=== PATIENT | female | born 1960 | race Caucasian/White ===

== ENCOUNTER → 2023-07-07 11:31 | Outpatient (REF) | payer OTHER, SELFPAY | LOC: RAD 11:31 | PROVIDERS: ATTENDING PHYSICIAN Nurse Practitioner Adult Health | DX: C50.111 Malignant neoplasm of central portion of right female breast (principal); C77.0 Secondary and unspecified malignant neoplasm of lymph nodes of head, face and neck; C79.51 Secondary malignant neoplasm of bone; K59.00 Constipation, unspecified | CPT/HCPCS: 73502 ==

== ENCOUNTER → 2023-07-09 16:21 | Outpatient (REF) | payer OTHER, SELFPAY ==
[2023-07-09 14:20] LABS: % Basophils 0.4 % (0-2); % Eosinophils 0.3 % (0-6); % Immature Granulocytes 0.7 % (0-0.5); % Lymphocytes 5.1 % (20.5-51.1); % Monocytes 8.2 % (1.7-9.3); % Neutrophils 85.3 % (42.2-75.2); Absolute Immature Granulocytes 0.1 10^3/uL (0-0.05); Absolute Lymphocytes 0.4 10^3/uL (1.2-3.4); Absolute Monocytes 0.6 10^3/uL (0.1-0.6); Absolute Neutrophils 6.3 10^3/uL (1.4-6.5); Hematocrit 26.8 % (37.0-47.0); Hemoglobin 8.4 g/dL (12.0-16.0); Mean Corp Hgb Conc. 31.3 g/dL (33.0-37.0); Mean Corpuscular Hgb 28.1 pg (27.0-31.0); Mean Corpuscular Volume 89.6 fL (81.0-99.0); Mean Platelet Volume 10.9 fL (7.4-10.4); Platelet Count 135 10^3/uL (130-400); Red Blood Cell Count 2.99 10^6/uL (4.20-5.40); Red Cell Dist. Width 19.6 % (11.5-14.5); White Blood Cell Count 7.4 10^3/uL (4.8-10.8)
== END ==
LOC: OIDL 16:21
PROVIDERS: ATTENDING PHYSICIAN Internal Medicine Hematology & Oncology
DX: C50.111 Malignant neoplasm of central portion of right female breast (principal)
CPT/HCPCS: 85025

== ENCOUNTER 2023-07-09 22:42 | Emergency (ER) | payer OTHER, SELFPAY ==
[2023-07-09 22:45] VITALS: BP 115/72
--- NOTE | 2023-07-09 23:24 | ED.GENMED ---
History of Present Illness
General
Chief Complaint: Cancer Problem
Source: patient
Time Seen by Provider: 07/09/23 23:16
Travel History
Have you had any contact with someone who has COVID-19?: No
Do you have any symptoms of coronavirus? Fever > 100 degrees, chills, cough, shortness of breath, sore throat, loss of taste or smell, muscle aches, or headache?: No
History of Present Illness
History of Present Illness:
63-year-old female presents to the emergency room complaining of pain in her left hip. Patient has known metastatic breast cancer both to her left hip and the other bony structures. However it is the left hip that gives her discomfort. Patient
states the pain is so severe that she really cannot sit still for long period of time. Patient has had recent imaging that confirms metastatic disease there but no fracture. Patient has no other complaints. She did speak to her oncology office
today and they were going to call in a prescription for tramadol however that apparently did not happen. Patient has been taking Tylenol without any improvement.
Past History
Past History
ED Past Medical History: Psychiatric (Anxiety and depression) and Other (Bone fractures)
ED Past Surgical History: None
Social History
Tobacco: Former smoker (Quit summer 2017)
Personal: Single
Living: alone
Employment: Not employed
Family History
Family History: Other
Phy Exam
Physical Exam
Physical Exam:
General: Awake, Alert, Oriented X3. No acute distress.
Vitals: unremarkable
Head: Atraumatic
Eyes: Pupils equal, EOMI
Throat: Airway intact, no exudates
Neck: Trachea midline
Neuro: Nonfocal
Skin: Warm, dry, no rash
Extremities: pulses equal b/l, no edema
Course
Orders/Labs/Results
Orders:
Orders
07/09/23 23:23
Oxycodone [Roxicodone] 5 mg PO NOW STA
Vital Signs
Initial and Last Documented VS:
Initial Vital Signs
Temp Pulse Resp BP Pulse Ox
98.2 F 90 18 115/72 98
07/09/23 22:45 07/09/23 22:45 07/09/23 22:45 07/09/23 22:45 07/09/23 22:45
Last Documented Vital Signs
Temp Pulse Resp BP Pulse Ox
98.2 F 90 18 115/72 98
07/09/23 22:45 07/09/23 22:45 07/09/23 22:45 07/09/23 22:45 07/09/23 22:45
MDM/Problems Addressed
Differential Diagnosis Includes:
Bone pain from metastases
MDM/Problems Addressed:
I do not favor tramadol given its high side effect profile and the fact it is not effective in all patients given it is a pro drug. Therefore we will prescribe oxycodone for pain. Dose given now and a prescription sent for 12 tablets until she can
follow-up with her oncologist.
*Pulse Oximetry
Patient hypoxic: no
*Critical Care Note
Total Time (30-74mins, 75-104mins- exclusive of procedures): Not Applicable
Data Reviewed
Review of Other/Old Records Reveals: Radiology Studies (CT and PET scans that were performed recently)
ED Attending Note
-
Portions of this chart may have been created with voice recognition software.� Occasional wrong word or��sound alike� substitutions may have occurred due to the inherent limitations of voice recognition software.
Discharge Plan
Departure
Patient Disposition: Home (Routine Discharge)
Date of Disposition: 07/09/23
Time of Disposition: 23:24
Patient with high blood pressure during this ER visit?: No
Condition: Good
Discharge Problem:
Pain from bone metastases
Instructions: Bone metastases
Prescriptions:
New
oxycodone 5 mg tablet
5 mg PO Q6H PRN (Reason: Pain) Qty: 12 0RF
No Action
sertraline 100 MG tablet
100 mg PO DAILY
tramadol 50 mg tablet
50 mg PO BID PRN (Reason: moderate pain)
Patient Comments:
09/30/2022: last filled 09/22/22, 60 tabs for 30 days from [facility]
diphenhydramine HCl 25 mg Capsule
50 mg PO HS PRN (Reason: sleep)
alprazolam [Xanax] 0.25 mg Tablet
0.75 mg PO HS PRN (Reason: anxiety)
ketorolac 10 mg tablet
10 mg PO Q6H PRN (Reason: pain) 3 Days Qty: 12 0RF
Rx Instructions:
as needed for moderate to severe pain
methylprednisolone [Medrol (Kirby)] 4 mg tablets,dose pack
See Rx Instructions .ROUTE .COMPLEX Qty: 21 0RF
Rx Instructions:
orally per package directions
Interventions
Interventions:
*Risk Screen - Suicide Last Done: 07/09/23 22:45
[2023-07-09] MEDS: ROXICODONE 5 MG PO (23:35)
== END 2023-07-09 23:38 | disposition home or self-care (01) ==
LOC: EMR 22:42
PROVIDERS: EMERGENCY PHYSICIAN Emergency Medicine
DX: G89.3 Neoplasm related pain (acute) (chronic) (principal); C79.51 Secondary malignant neoplasm of bone; F41.9 Anxiety disorder, unspecified; F32.A Depression, unspecified; Z87.891 Personal history of nicotine dependence
CPT/HCPCS: 99282

== ENCOUNTER → 2023-08-05 11:02 | Outpatient (REF) | payer OTHER, SELFPAY ==
[2023-08-05 09:53] LABS: % Basophils 0.6 % (0-2); % Eosinophils 1.6 % (0-6); % Immature Granulocytes 1.3 % (0-0.5); % Lymphocytes 7.5 % (20.5-51.1); Absolute Eosinophils 0.1 10^3/uL (0-0.7); Absolute Immature Granulocytes 0.1 10^3/uL (0-0.05); Absolute Lymphocytes 0.5 10^3/uL (1.2-3.4); Absolute Monocytes 0.5 10^3/uL (0.1-0.6); Absolute Neutrophils 5.1 10^3/uL (1.4-6.5); Hematocrit 26.2 % (37.0-47.0); Hemoglobin 8.2 g/dL (12.0-16.0); Mean Corp Hgb Conc. 31.3 g/dL (33.0-37.0); Mean Corpuscular Volume 89.4 fL (81.0-99.0); Mean Platelet Volume 10.4 fL (7.4-10.4); Platelet Count 85 10^3/uL (130-400); Red Blood Cell Count 2.93 10^6/uL (4.20-5.40); Red Cell Dist. Width 18.8 % (11.5-14.5); White Blood Cell Count 6.3 10^3/uL (4.8-10.8)
[2023-08-05 10:36] LABS: ALT (SGPT) 10 U/L (0-35); AST (SGOT) 46 U/L (14-36); Alkaline Phosphatase 123 U/L (38-126); Blood Urea Nitrogen 10 mg/dl (7-17); Carbon Dioxide 22 mmol/L (22-30); Chloride 101 mmol/L (98-107); Glucose 108 mg/dl (70-99); Potassium 4.4 mmol/L (3.5-5.1); Sodium 132 mmol/L (135-145); Total Bilirubin 0.6 mg/dl (0.2-1.3); Total Protein 7.4 g/dl (6.3-8.2); eGFR > 60.00
[2023-08-07 02:57] LABS: CA 27-29 2345.4 U/mL (<=39.0)
== END ==
LOC: OIDL 11:02
PROVIDERS: ATTENDING PHYSICIAN Nurse Practitioner Adult Health
DX: C50.111 Malignant neoplasm of central portion of right female breast (principal)
CPT/HCPCS: 80053; 85025; 86300

== ENCOUNTER 2023-08-19 10:44 | Emergency (ER) | payer OTHER, SELFPAY ==
[2023-08-19] MEDS: TORADOL 30 MG IM (12:29)
--- NOTE | 2023-08-19 12:47 | ED.MUSCINJ ---
HPI-Injury
General
Chief Complaint: Musculo-Skeletal Complaint
Source: patient
Exam Limitations: none
Time Seen by Provider: 08/19/23 11:58
Travel History
Have you had any contact with someone who has COVID-19?: No
Do you have any symptoms of coronavirus? Fever > 100 degrees, chills, cough, shortness of breath, sore throat, loss of taste or smell, muscle aches, or headache?: No
History of Present Illness-Injury
Initial Injury comments:
63-year-old female with history of metastatic breast cancer presents complaining of increased pain to the left hip and pelvis with difficulty moving normal bowels. This is been ongoing but symptoms are much worse. She had her last radiation
treatment to her pelvis about 2 weeks ago. The pain now radiates down her thigh. No fever. No other
Past History
Past History
ED Past Medical History: Psychiatric (Anxiety and depression) and Other (Bone fractures)
ED Past Surgical History: None
Social History
Tobacco: Former smoker (Quit summer 2017)
Personal: Single
Living: alone
Employment: Not employed
Family History
Family History: Other
Phy Exam
Physical Exam
Physical Exam:
General: Well-appearing female no acute respiratory distress
HEENT: Normocephalic atraumatic
Heart: Regular rate and rhythm no murmurs
Lungs: Clear to auscultation bilaterally no wheezing
Abdomen: Soft tender to the left lower quadrant no guarding or rebound
Musculoskeletal exam: Left leg without deformity. Good range of motion of the hip. Slightly tender to the lateral and anterior hip and left thigh
Vascular: 2+ dorsalis pedis pulse bilateral feet
Injury Course
Orders/Labs/Results
Orders:
Orders
08/19/23 12:13
CT Abd/pel Without Iv Or Oral Urgent
Comment:
Reason For Exam: lower abdominal pain, anaphylaxis to dye
Ketorolac [Toradol] 30 mg IM NOW STA
CR Femur - Left Min 2 Vw Urgent
Comment:
Reason For Exam: pain
08/19/23 13:24
Ondansetron Orally Disint [Zofran Odt (Orally Disintegrating)] 4 mg PO NOW STA
MDM/Problems Addressed
Differential Diagnosis Includes:
Increased pelvic pain and difficulty moving bowels following radiation. History of metastatic breast cancer with known metastasis to the pelvis will check CT of the abdomen given tenderness on exam and pelvis to evaluate for any potential occult
fracture. X-ray left femur pending.
*Critical Care Note
Total Time (30-74mins, 75-104mins- exclusive of procedures): Not Applicable
Update Note
Update Note:
CT scan demonstrates new lobular soft tissue mass in the left adnexa and pelvis suspicious for malignant disease. There are known osseous lesions in the pelvis and spine. X-rays of left femur are negative. A report of the CAT scan was printed out
for her review. Recommended she follow-up with her oncology team. Patient is ambulatory here. She walks briskly with pain.
ED Attending Note
-
Portions of this chart may have been created with voice recognition software.� Occasional wrong word or��sound alike� substitutions may have occurred due to the inherent limitations of voice recognition software.
Discharge Plan
Departure
Patient Disposition: Home (Routine Discharge)
Date of Disposition: 08/19/23
Time of Disposition: 14:09
Patient with high blood pressure during this ER visit?: No
Discharge Problem:
Sacral mass
Instructions: Muscle and Bone Pain (DC)
Prescriptions:
No Action
sertraline 100 MG tablet
100 mg PO DAILY
tramadol 50 mg tablet
50 mg PO BID PRN (Reason: moderate pain)
Patient Comments:
09/30/2022: last filled 09/22/22, 60 tabs for 30 days from [facility]
diphenhydramine HCl 25 mg Capsule
50 mg PO HS PRN (Reason: sleep)
alprazolam [Xanax] 0.25 mg Tablet
0.75 mg PO HS PRN (Reason: anxiety)
ketorolac 10 mg tablet
10 mg PO Q6H PRN (Reason: pain) 3 Days Qty: 12 0RF
Rx Instructions:
as needed for moderate to severe pain
methylprednisolone [Medrol (Kirby)] 4 mg tablets,dose pack
See Rx Instructions .ROUTE .COMPLEX Qty: 21 0RF
Rx Instructions:
orally per package directions
oxycodone 5 mg tablet
5 mg PO Q6H PRN (Reason: Pain) Qty: 12 0RF
Referrals:
UNKNOWN - PT DOES,NOT KNOW [Family Provider] -
Activity Restrictions/Additional Instructions:
Continue current pain medicine regimen. Please follow-up with your oncology team. Return if worse otherwise
Interventions
Interventions:
*Risk Screen - Suicide Last Done: 08/19/23 10:56
*General Assessment Last Done: 08/19/23 10:56
*Neglect/Abuse Screening Last Done: 08/19/23 10:56
*ED COVID-19 Vaccine History Last Done: 08/19/23 12:00
ED-Musculoskeletal Assessment Last Done: 08/19/23 12:00
[2023-08-19] MEDS: ZOFRAN ODT (ORALLY DISINTEGRATING) 4 MG PO (13:28)
[2023-08-19 13:29] VITALS: BP 130/84
[2023-08-19 14:11] VITALS: BP 130/84
== END 2023-08-19 14:25 | disposition home or self-care (01) ==
LOC: EMR 10:44
PROVIDERS: EMERGENCY PHYSICIAN Emergency Medicine
DX: M99.84 Other biomechanical lesions of sacral region (principal); C50.919 Malignant neoplasm of unspecified site of unspecified female breast; Z87.891 Personal history of nicotine dependence; Z85.3 Personal history of malignant neoplasm of breast
CPT/HCPCS: 99284; 96372; 73552; 74176

== ENCOUNTER 2023-08-26 16:43 | Inpatient (IN) | payer OTHER, SELFPAY ==
[2023-08-26] VITALS (13 sets, daily range): BP systolic 94–145; BP diastolic 61–80; PULSE 84–104; BMI 20.8; BMI 21.0
[2023-08-26] MEDS: TYLENOL 1000 MG PO (12:56)
[2023-08-26 13:20] LABS: Urine Albumin Trace (Neg - Trace); Urine Bilirubin 1+ (Negative); Urine Character Clear (Clear); Urine Color Yellow; Urine Glucose Negative (Negative); Urine Ketone Trace (Negative); Urine Leukocyte Trace (Negative); Urine Nitrite Negative (Negative); Urine Occult Blood Negative (Negative); Urine Urobilinogen Negative (Neg - 1+)
[2023-08-26 13:39] LABS: Urine Urothelial Cell 0-2 /LPF (FEW)
[2023-08-26 13:41] LABS: Urine Mucus Few
[2023-08-26] MEDS: REGLAN 10 MG IV (13:43)
[2023-08-26] MEDS: NSS 1000 IV (13:44)
[2023-08-26 13:45] LABS: Urine Red Blood Cell None Seen /HPF (0-2)
[2023-08-26 13:59] LABS: % Basophils 0.4 % (0-2); % Eosinophils 0.4 % (0-6); % Immature Granulocytes 1.5 % (0-0.5); % Lymphocytes 6.6 % (20.5-51.1); % Monocytes 7.4 % (1.7-9.3); % Neutrophils 83.7 % (42.2-75.2); Absolute Immature Granulocytes 0.1 10^3/uL (0-0.05); Absolute Lymphocytes 0.6 10^3/uL (1.2-3.4); Absolute Monocytes 0.7 10^3/uL (0.1-0.6); Absolute Neutrophils 7.8 10^3/uL (1.4-6.5); Mean Corp Hgb Conc. 30.1 g/dL (33.0-37.0); Mean Corpuscular Hgb 27.8 pg (27.0-31.0); Mean Corpuscular Volume 92.4 fL (81.0-99.0); Mean Platelet Volume 11.5 fL (7.4-10.4); Nucleated Red Blood Cells % 0.6 %; Platelet Count 121 10^3/uL (130-400); Red Blood Cell Count 1.58 10^6/uL (4.20-5.40); Red Cell Dist. Width 20.3 % (11.5-14.5); White Blood Cell Count 9.3 10^3/uL (4.8-10.8)
[2023-08-26 14:13] LABS: ALT (SGPT) 12 U/L (0-35); AST (SGOT) 60 U/L (14-36); Albumin 3.4 g/dl (3.5-5.0); Alkaline Phosphatase 126 U/L (38-126); Blood Urea Nitrogen 14 mg/dl (7-17); Calcium 8.6 mg/dl (8.4-10.2); Carbon Dioxide 21 mmol/L (22-30); Chloride 101 mmol/L (98-107); Estimated Creatinine Clearance 81 ml/min; Glucose 102 mg/dl (70-99); Lipase 52 U/L (23-300); Potassium 4.7 mmol/L (3.5-5.1); Sodium 130 mmol/L (135-145); Total Bilirubin 0.6 mg/dl (0.2-1.3); Total Protein 6.6 g/dl (6.3-8.2); eGFR > 60.00
[2023-08-26 14:14] LABS: Hemoglobin 4.4 g/dL (12.0-16.0)
[2023-08-26 14:15] LABS: Hematocrit 14.6 % (37.0-47.0)
[2023-08-26] MEDS: DILAUDID 0.5 MG IV ×2 (14:36→22:38)
--- NOTE | 2023-08-26 15:03 | ED.GENMED ---
History of Present Illness
General
Chief Complaint: Abdominal Pain
Source: patient and spouse
Exam Limitations: none
Time Seen by Provider: 08/26/23 12:22
Nursing documentation reviewed up to this point in time: agreed with
Travel History
Have you had any contact with someone who has COVID-19?: No
Do you have any symptoms of coronavirus? Fever > 100 degrees, chills, cough, shortness of breath, sore throat, loss of taste or smell, muscle aches, or headache?: No
History of Present Illness
History of Present Illness:
63-year-old female with past medical history of metastatic breast cancer and additional finding of potential cancerous lesion of the adnexa that was found 1 week ago with noncontrast CT scan presenting to the emergency department initially with
concerns of ongoing lower abdominal pain that is similar over the past few weeks. Denies any significant changes in bowel or bladder as well as urine. Denies specific fevers chest pain shortness of breath.
Past History
Past History
ED Past Medical History: Psychiatric (Anxiety and depression) and Other (Bone fractures)
ED Past Surgical History: None
Social History
Tobacco: Former smoker (Quit summer 2017)
Personal: Single
Living: alone
Employment: Not employed
Family History
Family History: Other
Review of Systems
Review of Systems
Allergies reviewed?: Yes
All Other Systems: ROS reviewed and negative except as documented in HPI and ROS
Phy Exam
Physical Exam
Physical Exam:
GENERAL: Alert , in no apparent distress
EYE: pupils equal and reactive
NECK: Supple, no significant adenopathy.
ENT: o/p clr, mmm.
CARDIAC: Regular rate and rhythm .
LUNGS: Clear breath sounds bilaterally, no acute respiratory distress, no wheezes/rales/rhonchi
ABDOMEN: Dark brown stool guaiac positive. Otherwise soft and benign.
NEUROLOGICAL: Alert and oriented, no focal neuro deficits
SKIN: Warm and dry, skin intact.
MUSCULOSKELETAL: No edema, well perfused.
PSYCH: Normal and appropriate interaction.
Mild pain to the lower abdomen mainly to the left side
Course
Orders/Labs/Results
Orders:
Orders
08/26/23 12:45
0.9% Sodium Chloride 1000 ml [Nss] 1,000 ml IV BOLUS
Acetaminophen [Tylenol] 1,000 mg PO NOW STA
Metoclopramide [Reglan] 10 mg IV NOW STA
08/26/23 13:11
Urinalysis Reflex To Culture Urgent
Date Specimen was Collected: 08/26/23
Time Specimen was Collected: 13:10
Urine Microscopic Reflex Cult Urgent
08/26/23 13:38
Complete Blood Count/With Diff Urgent
Comprehensive Metabolic Panel Urgent
Lipase Urgent
08/26/23 14:14
* Blood Bank Products Urgent
Blood Bank Products: *Packed RBC Leuko(PRBC's)
Quantity: 2
Transfuse Today: Yes
Reason: Anemia
HYDROmorphone [Dilaudid] 0.5 mg IV NOW STA
08/26/23 14:26
Type+Screen Urgent
08/26/23 14:40
PT/INR [Prothrombin Time] Urgent
PTT Urgent
08/26/23 14:43
Pantoprazole [Protonix IV] 80 mg IV NOW STA
Abnormal Lab Results
08/26/23 08/26/23
13:11 13:38
RBC 1.58 L 10^6/uL
(4.20-5.40)
Hgb 4.4 L* g/dL
(12.0-16.0)
Hct 14.6 L* %
(37.0-47.0)
MCHC 30.1 L g/dL
(33.0-37.0)
RDW 20.3 H %
(11.5-14.5)
Plt Count 121 L 10^3/uL
(130-400)
MPV 11.5 H fL
(7.4-10.4)
Abs Immat Gran (auto) 0.1 H 10^3/uL
(0-0.05)
Absolute Neuts (auto) 7.8 H 10^3/uL
(1.4-6.5)
Absolute Lymphs (auto) 0.6 L 10^3/uL
(1.2-3.4)
Absolute Monos (auto) 0.7 H 10^3/uL
(0.1-0.6)
Immature Gran % 1.5 H %
(0-0.5)
Neutrophils % 83.7 H %
(42.2-75.2)
Lymphocytes % 6.6 L %
(20.5-51.1)
Sodium 130 L mmol/L
(135-145)
Carbon Dioxide 21 L mmol/L
(22-30)
Creatinine 0.5 L mg/dL
(0.6-1.0)
Glucose 102 H mg/dl
(70-99)
AST 60 H U/L
(14-36)
Albumin 3.4 L g/dl
(3.5-5.0)
Urine Ketones Trace A
(Negative)
Urine Bilirubin 1+ A
(Negative)
Leukocyte Esterase Rfl Trace A
(Negative)
08/26/23 13:38
08/26/23 13:38
Vital Signs
Initial and Last Documented VS:
Initial Vital Signs
Temp Pulse Resp BP Pulse Ox
98.5 F 112 18 94/61 98
08/26/23 11:56 08/26/23 11:56 08/26/23 11:56 08/26/23 11:56 08/26/23 11:56
Last Documented Vital Signs
Temp Pulse Resp BP Pulse Ox
98.5 F 112 18 94/61 98
08/26/23 11:56 08/26/23 11:56 08/26/23 11:56 08/26/23 11:56 08/26/23 11:56
MDM/Problems Addressed
MDM/Problems Addressed:
63-year-old female presenting to the emergency department today with concerns of ongoing abdominal pain. Was given Dilaudid for pain labs showing hemoglobin of 4.4 previously in the eights 1 week ago. Otherwise labs without emergent findings stool
guaiac positive patient ordered 2 units of blood and admitted to the hospital for further evaluation and monitoring. Blood pressure remaining in the low 100s systolic here heart rate around 100 febrile.
*Critical Care Note
Total Time (30-74mins, 75-104mins- exclusive of procedures): Not Applicable
ED Attending Note
-
Portions of this chart may have been created with voice recognition software.� Occasional wrong word or��sound alike� substitutions may have occurred due to the inherent limitations of voice recognition software.
Discharge Plan
Departure
Patient Disposition: Admit
Date of Disposition: 08/26/23
Time of Disposition: 15:09
Admit to: IMU
Admit to doctor: Eleuterio
Presentation/result/management discussed w/ accepting MD/DO: Hospitalist
Patient with high blood pressure during this ER visit?: No
Condition: Fair
Covid-19: Not Applicable
Discharge Problem:
Anemia, GI bleed
Prescriptions:
No Action
sertraline 100 MG tablet
100 mg PO DAILY
acetaminophen [Tylenol] 325 mg Tablet
650 mg PO Q6HPRN PRN (Reason: mild pain)
alprazolam [Xanax] 0.5 mg Tablet
0.5 mg PO BIDPRN PRN (Reason: anxiety)
duloxetine [Cymbalta] 30 mg Capsule,Delayed Release(Dr/Ec)
30 mg PO HS
Referrals:
NONE,* [Family Provider] -
Interventions
Interventions:
*Risk Screen - Suicide Last Done: 08/26/23 11:56
*General Assessment Last Done: 08/26/23 11:56
*Neglect/Abuse Screening Last Done: 08/26/23 11:56
*ED COVID-19 Vaccine History Last Done: 08/26/23 11:56
[2023-08-26 15:07] LABS: INR 1.16; PT 14.8 Sec (11.4-14.6)
[2023-08-26 15:08] LABS: APTT 41.3 Sec (23.4-35.0)
--- NOTE | 2023-08-26 15:32 | HPS.HSE ---
Family Physician
-
Family Physician: * NONE
Chief Complaint
-
abdominal pain
History of Present Illness
Ms. Maria Luisa Carmona is a 63 yo woman with hx anxiety/depression, metastatic breast cancer, recent finding of potential cancerous lesion of adnexa (found 1 week ago at ER visit) presents to the ER with left flank pain and found to have a Hg 4.4.
Patient reports increased fatigue, weakness and shortness of breath with exertion over past 4-5 days. No fevers/chills. No chest pain. She came in one week ago for hip pain and then 2 days later developed left flank pain stretching to groin. She
reports darker stools recently, attributes that to starting a bowel regimen. No nausea/vomiting. No LE swelling.
Patient was diagnosed with breast cancer [address] Jacobson. States she has been on many treatments, without effect.
Medical History
Past Medical History
Past Medical History: Reports Other ( anxiety/depression, metastatic breast cancer, recent finding of potential cancerous lesion of adnexa (found 1 week ago at ER visit) )
Past Surgical History: Reports None
Social History
Tobacco: Former Smoker
Alcohol: None
Family History
Family History: Not pertinent
Allergies / Home Medications
Allergies reflects when Allergies were last updated in [employer].
Home Medications with original date entered in [employer]
Allergy/Medication List:
Allergies
Allergy/AdvReac Type Severity Reaction Status Date / Time
bupropion [From Wellbutrin] Allergy Unknown Verified 08/26/23 11:56
Iodinated Contrast Media Allergy THROAT SHUT Verified 08/26/23 11:56
codeine AdvReac 'makes her Verified 08/26/23 11:56
ill'
Home Medications
sertraline 100 mg tablet 100 mg PO DAILY Depression 01/11/18
acetaminophen 325 mg tablet (Tylenol) 650 mg PO Q6HPRN PRN mild pain 08/26/23
alprazolam 0.5 mg tablet (Xanax) 0.5 mg PO BIDPRN PRN anxiety 08/26/23
duloxetine 30 mg capsule,delayed release (Cymbalta) 30 mg PO HS Depression 08/26/23
Review of Systems
-
History Source: Patient
A 12 point ROS was completed and negative except as noted: Yes
Physical Exam
Vital Signs
Vital Signs
Temp Pulse Resp BP Pulse Ox
98.5 F 112 18 94/61 98
08/26/23 11:56 08/26/23 11:56 08/26/23 11:56 08/26/23 11:56 08/26/23 11:56
Physical Exam
General: Other (frail appearing, pale )
HEENT: PERRLA
Respiratory: Clear; No Wheezes
Cardiac: S1/S2 and Regular Rhythm
GI: Soft and Non Tender
Musculoskeletal: Other (tenderness over left flank, no bruising noted )
Skin: Warm and Dry; No Rash
Neuro: AO x 3
Psych: Calm
Laboratory Results
-
08/26/23 13:38
08/26/23 13:38
Laboratory Results
PT 14.8 Sec (11.4-14.6) H 08/26/23 14:40
INR 1.16 08/26/23 14:40
APTT 41.3 Sec (23.4-35.0) H 08/26/23 14:40
Total Bilirubin 0.6 mg/dl (0.2-1.3) 08/26/23 13:38
AST 60 U/L (14-36) H 08/26/23 13:38
ALT 12 U/L (0-35) 08/26/23 13:38
Alkaline Phosphatase 126 U/L (38-126) 08/26/23 13:38
Lipase 52 U/L (23-300) 08/26/23 13:38
Data Reviewed
-
Diagnostic Radiology: Report Reviewed by me
Lab Data: Labs Reviewed by me
Impression/Plan
-
Ms. Maria Luisa Carmona is a 63 yo woman with hx anxiety/depression, metastatic breast cancer, recent finding of potential cancerous lesion of adnexa (found 1 week ago at ER visit) presents to the ER with abdominal pain.
Triage VS: T 98.5, P 112, RR 18, BP 94/61, SpO2 98%
LABS: WBC 9.3, Hg 4.4 (was 8.2 08/05/23), PLT 121, Na 130, K+ 4.7, CO2 21, Cr 0.5, Glucose 102, T. Bili 0.6, AST 60, ALT 12, Alk Phos 126
Abdomen/Pelvis CT from 08/19/23
IMPRESSION:
1).There is new lobular soft tissue in the presacral region and left adnexa which is high-level suspicion for malignant involvement.
The presacral component measures approximately 2.5 x 4.5 x 4.0 cm and is confluent with the lobular left adnexal component which measures approximately 8 x 2 x 3 cm.There is associated left periureteral stranding with borderline left hydronephrosis
as well as stranding in the left inguinal region. Differential diagnosis for these findings include metastatic implants from the patient's known breast carcinoma as well as ovarian carcinoma. The possibility that these changes are inflammatory is
less likely. Pelvic MRI and PET scan useful for further evaluation
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
ordered for 2 units PRBC
Severe symptomatic Anemia
-report of black stools, heme guaiac positive
-ordered for 2 units PRBC in ER
-admit to telemetry
-trend Hg and continue to transfuse to keep Hg > 7
-GI consult appreciated
-clears
-NPO after MN for EGD/[facility] tomorrow
Hx Metastatic Breast Cancer
Recent finding lobular soft tissue in presacral region and left adnexa
Left flank pain likely 2/2 metastatic finding above; no e/o bruising to suggest hematoma
-patient sees Dr. Jacobson
-IV dilaudid PRN
-patient states she tried lidocaine patch without effect
Anxiety/Depression
-RN PROCEDURES regimen Cymbalta, Sertraline and Xanax PRN
DVT PPx SCD
FULL CODE
[2023-08-26 16:10] LABS: Iron 49 ug/dl (37-170)
[2023-08-26 16:19] LABS: Percent Saturation 16 % (20-50); Total Iron Binding Capacity 304 ug/dl (265-497)
[2023-08-26] MEDS: DILAUDID 0.25 MG IV (16:28)
[2023-08-26] MEDS: PROTONIX IV 80 MG IV (16:28)
--- NOTE | 2023-08-26 16:32 | CON.GI ---
Addendum entered and electronically signed by Annalee Reinoso MD 08/26/23 17:31:
I saw and examined the patient.
The [employer] or PA's note was reviewed and I agree with the note.
Comment: 63-year-old female with past medical history of metastatic breast cancer status post chemo, radiation, surgery presenting with severe anemia with hemoglobin to 4. I discussion with the patient, she does have some constipation and back
pain. It was previously reported she also had abdominal pain. She thinks her stools have been dark recently. She does take a lot of ibuprofen about 1-2 times a day for the last month. She saw Dr. Artis in May for rectal bleeding and
constipation and he recommended a colonoscopy. She decided to hold off at that time as she was undergoing a lot with her breast cancer. In the ER the stool is dark brown guaiac positive. Never underwent an endoscopy or colonoscopy. Not on any
blood thinners.
With such severe anemia, I do recommend an upper endoscopy and colonoscopy. Risks, alternatives, benefits were reviewed with the patient including but not limited to bleeding, infection, perforation. Patient is agreeable. She is getting
transfused blood and her hemoglobin should be ideally 7 prior to procedure. Continue Protonix IV twice daily. Discussed with hospitalist. Please call with any questions. Further recommendations pending endoscopy and colonoscopy.
Original Note:
Consultation
-
Date/Time Consultation Requested: 08/26/23 1515
Date/Time Consultation Performed: 08/26/23 1530
Requesting Provider: Dr. Hopson
Performing Provider: Dr. Reinoso/MARIAM Randolph
Reason for Consultation: severe anemia, OB pos stool
Medical History
Chief Complaint / HPI
Chief Complaint: back/flank pain
History of Present Illness:
63-year-old female with history of stage IV metastatic breast cancer to the bone with radiation to the spine since September [address] Gabriela Jacobson with history of bilateral mastectomy, right breast radiation/pelvic radiation, right-sided
breast lymph node resection, port insertion status post removal, anxiety, depression, hyperlipidemia, ADD who is currently on a chemo holiday and is on Zometa with baseline hemoglobin in the [address] Artis in May for intermittent
rectal bleeding and chronic constipation. At that time the patient had outpatient evaluation with anorectal exam that showed no external hemorrhoids only mild internal hemorrhoids. The patient declined colonoscopy at that time despite
recommendation. The patient has never had one performed. She continued on MiraLAX twice a day. She did take magnesium citrate the other day and had dark bowel movements since that time. The patient has been utilizing Advil 2 pills up to twice a
day. She states that she stopped this a couple weeks ago. She was in the emergency room on 08/19/2023 for increased pain to the left hip and pelvis with radiation down her thigh. She was given Toradol as well as tramadol and oxycodone for pain.
She had a CT of the abdomen and pelvis given the fact that she had abdominal discomfort. This showed a new lobular soft tissue in the presacral region and left adnexa which is high level suspicion for malignant involvement. There were also
scattered blastic osseous metastases in the pelvis and spine similar seen previously. The patient again presents to the emergency room with concerns of ongoing abdominal pain. Labs show hemoglobin of 4.4. Again her prior labs from the July
were in the 8 range. Patient states she has noticed dark stools that were almost black for at least the past couple days to almost a week. Stool is guaiac positive/dark brown in the emergency room with reports of recurrent abdominal discomfort.
To me the patient states that she has more of back discomfort. Patient has had fatigue, increased heart rate. The patient denies any fevers, chills, nausea, vomiting, hematochezia, dysphagia or odynophagia. She denies any early satiety. She
denies any changes in her bowel habits like narrowing or thinning of the stools. She does have chronic constipation which she attributed to her chemotherapy. She has never had an endoscopy or colonoscopy before.
Past Medical History
Past Medical History: Cancer (Breast CA), Hypercholesterolemia and Other (anxiety/depression, ADD)
Past Surgical History: Other (B/L mastectomy, right sided LN resection )
Social History
Tobacco: Non-Smoker
Alcohol: None
Drug: None
Personal: Single
Living: Alone
Family History
Family History: Other (Maternal Grandfather and Maternal uncle Colon Cancer)
Allergies / Home Medications
Allergy/AdvReac Type Severity Reaction Status Date / Time
bupropion [From Wellbutrin] Allergy Unknown Verified 08/26/23 16:12
Iodinated Contrast Media Allergy THROAT SHUT Verified 08/26/23 11:56
codeine AdvReac 'makes her Verified 08/26/23 11:56
ill'
Medication Instructions Recorded
sertraline 100 mg tablet 100 mg PO DAILY Depression 01/11/18
acetaminophen 325 mg tablet 650 mg PO Q6HPRN PRN mild pain 08/26/23
(Tylenol)
alprazolam 0.5 mg tablet (Xanax) 0.5 mg PO BIDPRN PRN anxiety 08/26/23
duloxetine 30 mg capsule,delayed 30 mg PO HS Depression 08/26/23
release (Cymbalta)
Review of Systems
-
All other systems: A 12 pt ROS was Negative except as stated above in HPI
Vital Signs
Temp Pulse Resp BP Pulse Ox
97.6 F 95 21 112/73 94
08/26/23 16:24 08/26/23 16:24 08/26/23 16:24 08/26/23 16:24 08/26/23 16:24
Physical Exam
Results
WBC 9.3 10^3/uL (4.8-10.8) 08/26/23 13:38
Hgb 4.4 g/dL (12.0-16.0) L* 08/26/23 13:38
Hct 14.6 % (37.0-47.0) L* 08/26/23 13:38
MCV 92.4 fL (81.0-99.0) 08/26/23 13:38
Plt Count 121 10^3/uL (130-400) L 08/26/23 13:38
Absolute Neuts (auto) 7.8 10^3/uL (1.4-6.5) H 08/26/23 13:38
PT 14.8 Sec (11.4-14.6) H 08/26/23 14:40
INR 1.16 08/26/23 14:40
APTT 41.3 Sec (23.4-35.0) H 08/26/23 14:40
Sodium 130 mmol/L (135-145) L 08/26/23 13:38
Potassium 4.7 mmol/L (3.5-5.1) 08/26/23 13:38
Chloride 101 mmol/L (98-107) 08/26/23 13:38
Carbon Dioxide 21 mmol/L (22-30) L 08/26/23 13:38
BUN 14 mg/dl (7-17) 08/26/23 13:38
Creatinine 0.5 mg/dL (0.6-1.0) L 08/26/23 13:38
Calcium 8.6 mg/dl (8.4-10.2) 08/26/23 13:38
Total Bilirubin 0.6 mg/dl (0.2-1.3) 08/26/23 13:38
AST 60 U/L (14-36) H 08/26/23 13:38
ALT 12 U/L (0-35) 08/26/23 13:38
Alkaline Phosphatase 126 U/L (38-126) 08/26/23 13:38
Lipase 52 U/L (23-300) 08/26/23 13:38
Diagnostic Image Results:
Abdomen/Pelvis CT from 08/19/23
IMPRESSION:
1).There is new�lobular soft tissue in the presacral region and left adnexa which is high-level suspicion for malignant involvement.
The presacral component measures approximately 2.5 x 4.5 x 4.0 cm and is confluent with the lobular left adnexal component which measures approximately 8 x 2 x 3 cm.There is associated left periureteral stranding with borderline left hydronephrosis
as well as stranding in the left inguinal region. Differential diagnosis for these findings include metastatic implants from the patient's known breast carcinoma as well as ovarian carcinoma. The possibility that these changes are inflammatory is
less likely. Pelvic MRI and PET scan useful for further evaluation
2).Scattered blastic osseous metastasis in the pelvis and spine are similar to that seen on the prior study and there is stable 20% pathologic compression fracture of T11.
Femur XR 08/19/23:
IMPRESSION:
There is mild degenerative spurring of the superolateral margin of the greater trochanter
The femur is otherwise normal
There are blastic osseous metastasis throughout the pelvis including the left acetabulum
Electronically signed by Juan Jose Waterman MD 08/19/2023 2:20 PM
Prior GI Procedures:
EGD: never
Colonoscopy: never
Assessment / Plan
-
63-year-old female with history of stage IV metastatic breast cancer to the bone with radiation to the spine since September [address] Gabriela Jacobson with history of bilateral mastectomy, right breast radiation/pelvic radiation, right-sided
breast lymph node resection, port insertion status post removal, anxiety, depression, hyperlipidemia, ADD who is currently on a chemo holiday and is on Zometa with baseline hemoglobin in the [address] Artis in May for intermittent
rectal bleeding and chronic constipation. At that time the patient had outpatient evaluation with anorectal exam that showed no external hemorrhoids only mild internal hemorrhoids. The patient declined colonoscopy at that time despite
recommendation.She was in the emergency room on 08/19/2023 for increased pain to the left hip and pelvis with radiation down her thigh. She was given Toradol as well as tramadol and oxycodone for pain. She had a CT of the abdomen and pelvis given
the fact that she had abdominal discomfort. This showed a new lobular soft tissue in the presacral region and left adnexa which is high level suspicion for malignant involvement. There were also scattered blastic osseous metastases in the pelvis
and spine similar seen previously. The patient again presents to the emergency room with concerns of ongoing abdominal pain. Labs show hemoglobin of 4.4. Again her prior labs from the July were in the 8 range. Patient states she has noticed
dark stools that were almost black for at least the past couple days to almost a week. Stool is guaiac positive/dark brown in the emergency room with reports of recurrent abdominal discomfort.
Impression:
Severe anemia
OB positive stool
Constipation
Metastatic Breast Cancer
Plan:
-Patient agreeable for EGD/Colonoscopy
-Transfuse to Hgb >7
-Will start clear liquid, no red and start bowel prep
-Trend Hgb
Data Reviewed
-
CT Scan: Report Reviewed by me
Old Records: Reviewed
-
-
Thank you for consultation and allowing me to participate in the patient's care. Please call the education director GI physician during the after hours with any questions or concerns.
[2023-08-26 17:27] LABS: Folate 4.3 ng/ml (2.76-20); Vitamin B12 > 1000 pg/ml (239-931)
--- NOTE | 2023-08-26 18:15 | PTCARENOTE ---
1813 Pt received from ED via stretcher. Ambulated from stretcher to bed with steady gait.
[2023-08-26] MEDS: NULYTELY SOLUTION 4 LITERS PO (19:23)
[2023-08-26] MEDS: CYMBALTA DELAYED RELEASE 30 MG PO (22:35)
[2023-08-26] MEDS: NSS (PRESERVATIVE FREE) 10 ML IV (22:37)
[2023-08-26] MEDS: PROTONIX IV 40 MG IV (22:37)
[2023-08-26] MEDS: FLUSH (NSS) 3 FLUSH IV (22:39)
--- NOTE | 2023-08-26 23:00 | PTCARENOTE ---
@2220;Pt tolerated 2nd unit of PRBC.Vital signs stable and charted .
--- NOTE | 2023-08-26 23:30 | PTCARENOTE ---
@2303; Instructed Dr Jessie Reinoso,via TT, pt could only drink 2 cups of bowel prep this evening .Pt stated,'I need the a day to rest with everything going on'.Will continue to keep pt NPO for EGD.
[2023-08-27 00:12] LABS: Hemoglobin 8.1 g/dL (12.0-16.0)
[2023-08-27] MEDS: FLUSH (NSS) 2 FLUSH IV (02:40)
[2023-08-27] MEDS: DILAUDID 0.5 MG IV ×5 (02:40→21:14)
[2023-08-27 03:35] VITALS: BP 111/75
[2023-08-27 06:45] LABS: Hemoglobin 8.1 g/dL (12.0-16.0); Mean Corp Hgb Conc. 32.4 g/dL (33.0-37.0); Mean Corpuscular Hgb 27.6 pg (27.0-31.0); Mean Corpuscular Volume 85.3 fL (81.0-99.0); Mean Platelet Volume 11.3 fL (7.4-10.4); Platelet Count 77 10^3/uL (130-400); Red Blood Cell Count 2.93 10^6/uL (4.20-5.40); Red Cell Dist. Width 19.8 % (11.5-14.5); White Blood Cell Count 9.8 10^3/uL (4.8-10.8)
[2023-08-27 07:00] VITALS: BP 104/70; BP 114/78; BP 125/79; PULSE 107; PULSE 110; PULSE 117
[2023-08-27 07:26] LABS: ALT (SGPT) < 10 U/L (0-35); AST (SGOT) 65 U/L (14-36); Albumin 3.1 g/dl (3.5-5.0); Alkaline Phosphatase 120 U/L (38-126); Blood Urea Nitrogen 12 mg/dl (7-17); Carbon Dioxide 20 mmol/L (22-30); Chloride 101 mmol/L (98-107); Estimated Creatinine Clearance 81 ml/min; Glucose 98 mg/dl (70-99); Magnesium 2.3 mg/dl (1.6-2.3); Potassium 4.4 mmol/L (3.5-5.1); Sodium 131 mmol/L (135-145); Total Bilirubin 1.2 mg/dl (0.2-1.3); eGFR > 60.00
[2023-08-27] MEDS: PROTONIX IV 40 MG IV ×2 (08:32→21:13)
[2023-08-27] MEDS: NSS (PRESERVATIVE FREE) 10 ML IV ×2 (08:32→21:13)
--- NOTE | 2023-08-27 08:59 | CON.ONC ---
Addendum entered and electronically signed by Kevin Alcantar DO 08/27/23 10:59:
Patient evaluated and chart reviewed independently. Agree with the impression and plan as outlined by [employer]IST below. Patient was scheduled for outpatient bone marrow biopsy which will be delayed. Anticipate GI evaluation for blood loss. Continue
supportive care with transfusion as outlined by parameters below. Will continue to monitor for progression of metastatic breast cancer.
Original Note:
Impression
Impression
Severe symptomatic blood loss anemia (baseline Hgb 8-10)
Metastatic breast cancer (2019 s/p radiation, Letrozole/Ibrance)
Bilateral mastectomy (12/2019)
Lymph node dissection (05/2020, radiation/Xeloda dc 10/2022)
Bone mets (09/2022, initiated Enhertu 10/2022 switched to Orserdu late 2022, dc early 2023)
Recent radiation to left hip (2023)
Currently on Zometa alone Q6 weeks
New lesion to adnexa on imaging (2023)
Heme+ stool
Acute abdominal pain
Acute hip/back pain
Hyponatremia
Hypocalcemia
NSAID use
Plan
Plan
08/26 Hgb 8.1, Hct 25, PLT 77
s/p 2units PRBCs
Transfuse as needed to maintain Hgb >7, PLT >20 (or >50 with active bleeding)
Serial H/H, CBC w/ diff daily
Monitor for bleeding
Heme+ stools
GI planning for EGD/colonoscopy today
Monitor calcium level on Zometa (last received 07/09/23 w/ IV dex)
Supportive care/emotional support
Outpatient bone marrow biopsy was scheduled for today, 08/26, which will need to be rescheduled with [facility].
We will follow. Our office has been made aware of patient's hospital admission.
Patient History
History of Present Illness
Maria Luisa Carmona is a 63 year old female known to Dr. Jacobson at [facility] with history of metastatic breast cancer. She had been seen in the ER recently last week, 08/18, with complaints of acute left hip/pelvic pain and constipation. She is currently
receiving Zometa at our office; last received 07/09. She is not currently on chemotherapy. She has received radiation several times in the past; most recently 2-3 weeks ago. In the past, she has also received Faslodex (2020), Enhertu (2022),
Elacestrant (2022), and Xeloda (2022). She returned to the ER yesterday, 08/25, with complaints of acute left flank pain, fatigue, and profound SOB/ALTAMIRANO x5 days. She reports her stools have appeared darker following use of Miralax BID for acute
constipation. Lab work revealed severe anemia with Hgb of 4.4. She received 2 units of blood thus far with Hgb recovery to 8.1. She denies dizziness, headaches, visual changes, fever, chills, nausea/vomiting, edema, or unintentional weight loss. She
has been admitted for further workup. GI is planning for colonoscopy/EGD today due to heme-positive stool. She admits to frequent NSAID use. Patient has never had colonoscopy. Colonoscopy was recommended to her as an outpatient, however, she states
she has been so overwhelmed by cancer treatments/appointments, she did not schedule this.
Past-Medical/Surgical History
Metastatic breast cancer to bone s/p radiation, bilateral mastectomy, and lymph node dissection (2019)
Recent radiation to left hip (2023)
Anxiety/depression, hx panic attacks
Former smoker (quit 2017)
Hyperlipidemia
Hx Intermittent rectal bleeding
Hx Internal hemorrhoids
Hx Constipation
Patient Medication
Medication Instructions Recorded Confirmed Last Taken Type
sertraline 100 mg tablet 100 mg PO DAILY Depression 01/11/18 08/26/23 07/28/23 08:00 History
acetaminophen 325 mg tablet 650 mg PO Q6HPRN PRN mild pain 08/26/23 08/26/23 08/26/23 12:00 History
(Tylenol)
alprazolam 0.5 mg tablet (Xanax) 0.5 mg PO BIDPRN PRN anxiety 08/26/23 08/26/23 08/25/23 22:00 History
duloxetine 30 mg capsule,delayed 30 mg PO HS Depression 08/26/23 08/26/23 08/25/23 16:00 History
release (Cymbalta)
Active Medications
Generic Name Dose Route Start Last Admin
Trade Name Freq PRN Reason Stop Dose Admin
Acetaminophen 650 mg 08/26/23 18:21
Acetaminophen 325 Mg Tablet PO 09/23/23 18:20
Q6HPRN PRN
mild pain, fever
Alprazolam 0.5 mg 08/26/23 18:21
Alprazolam 0.5 Mg Tablet PO 09/23/23 18:20
BIDPRN PRN
anxiety
Duloxetine HCl 30 mg 08/26/23 22:00 08/26/23 22:35
Duloxetine Delayed Release 30 Mg Capsule PO 09/23/23 21:59 30 mg
HS GEN Administration
Hydromorphone HCl 0.5 mg 08/26/23 18:21 08/27/23 08:41
Hydromorphone 0.5 Mg/0.5 Ml Syringe IV 09/09/23 18:20 0.5 mg
Q3HPRN PRN Administration
severe pain
Pantoprazole Sodium 40 mg 08/26/23 20:00 08/27/23 08:32
Pantoprazole Sodium 40 Mg/10 Ml Vial IV 09/23/23 19:59 40 mg
BID GEN Administration
Sertraline HCl 100 mg 08/27/23 08:00 08/27/23 08:38
Sertraline 100 Mg Tablet PO 09/24/23 07:59 Not Given
DAILY GEN
Sodium Chloride 0 flush 08/26/23 19:00 08/27/23 02:40
Sodium Chloride 0.9% (Flush) Syringe IV 09/23/23 18:59 2 flush
PER PROTOCOL GEN Administration
Sodium Chloride 10 ml 08/26/23 20:00 08/27/23 08:32
Sodium Chloride 0.9% (Preservative Free) 10 Ml Vial IV 09/23/23 19:59 10 ml
BID GEN Administration
Review of Systems
-
History Source: Patient, Physician, Coordinated Provider and Records
Constitutional: Reports Fatigue
EENT: Reports No Symptoms
Respiratory: Reports No Symptoms
Cardiac: Reports No Symptoms
GI: Reports Diarrhea (s/p colonoscopy prep)
Breast: Reports N/A
: Reports No Symptoms
Musculoskeletal: Reports No Symptoms
Skin: Reports No Symptoms
Neuro: Reports No Symptoms
Endocrine: Reports No Symptoms
Hematologic/Lymphatic: Reports No Symptoms
Allergy / Immunology: Reports No Symptoms
Psych: Reports No Symptoms
Physical Exam
-
Patient is resting comfortably in bed. She states she feels 'lousy'. She tolerated colonscopy preparation overnight. Reports diarrhea s/p prep. She just received pain medication.
General: No Apparent Distress, Comfortable, Conversant and Appears Chronically Ill
HEENT: Negative Jaundice
Cardiology: S1, S2 and Other (tachycardia)
Pulmonary: Clear and Other (room air)
GI: Normal Bowel Sounds
Genito-Urinary: Deferred by me
Musculoskeletal: No Edema
Extremities: Pulses Present
Neurology: Non Focal
Skin: Warm and Dry
Hematologic / Lymphatic: No Petechiae
Psych: Calm
Labs
Lab Results
WBC 9.8 10^3/uL (4.8-10.8) 08/27/23 06:01
RBC 2.93 10^6/uL (4.20-5.40) L 08/27/23 06:01
Hgb 8.1 g/dL (12.0-16.0) L 08/27/23 06:01
Hct 25.0 % (37.0-47.0) L 08/27/23 06:01
MCV 85.3 fL (81.0-99.0) 08/27/23 06:01
MCH 27.6 pg (27.0-31.0) 08/27/23 06:01
MCHC 32.4 g/dL (33.0-37.0) L 08/27/23 06:01
RDW 19.8 % (11.5-14.5) H 08/27/23 06:01
Plt Count 77 10^3/uL (130-400) L D 08/27/23 06:01
MPV 11.3 fL (7.4-10.4) H 08/27/23 06:01
Abs Immat Gran (auto) 0.1 10^3/uL (0-0.05) H 08/26/23 13:38
Absolute Neuts (auto) 7.8 10^3/uL (1.4-6.5) H 08/26/23 13:38
Absolute Lymphs (auto) 0.6 10^3/uL (1.2-3.4) L 08/26/23 13:38
Absolute Monos (auto) 0.7 10^3/uL (0.1-0.6) H 08/26/23 13:38
Absolute Eos (auto) 0.0 10^3/uL (0-0.7) 08/26/23 13:38
Absolute Basos (auto) 0.0 10^3/uL (0-0.2) 08/26/23 13:38
Immature Gran % 1.5 % (0-0.5) H 08/26/23 13:38
Neutrophils % 83.7 % (42.2-75.2) H 08/26/23 13:38
Lymphocytes % 6.6 % (20.5-51.1) L 08/26/23 13:38
Monocytes % 7.4 % (1.7-9.3) 08/26/23 13:38
Eosinophils % 0.4 % (0-6) 08/26/23 13:38
Basophils % 0.4 % (0-2) 08/26/23 13:38
Creatinine 0.5 mg/dL (0.6-1.0) L 08/27/23 06:01
Vital Signs
Vital Signs
Temp Pulse Resp BP Pulse Ox
98.4 F 107 16 125/79 100
08/27/23 07:00 08/27/23 07:00 08/27/23 07:00 08/27/23 07:00 08/27/23 07:00
08/19/23 CT abd/pelvis: There is new lobular soft tissue in the presacral region and left adnexa which is high-level suspicion for malignant involvement. The presacral component measures approximately 2.5 x 4.5 x 4.0 cm and is confluent with the
lobular left adnexal component which measures approximately 8 x 2 x 3 cm.There is associated left periureteral stranding with borderline left hydronephrosis as well as stranding in the left inguinal region. Differential diagnosis for these findings
include metastatic implants from the patient's known breast carcinoma as well as ovarian carcinoma. The possibility that these changes are inflammatory is less likely. Pelvic MRI and PET scan useful for further evaluation. Scattered blastic osseous
metastasis in the pelvis and spine are similar to that seen on the prior study and there is stable 20% pathologic compression fracture of T11
08/20/23 Femur x-ray: There is mild degenerative spurring of the superolateral margin of the greater trochanter. The femur is otherwise normal. There are blastic osseous metastasis throughout the pelvis including the left acetabulum
--- NOTE | 2023-08-27 09:49 | W.PN.GI.CBS2 ---
Today's Communication / Plan
-
egd/colon tomorrow
Assessment / Plan
-
�63-year-old female with past medical history of metastatic breast cancer status post chemo, radiation, surgery presenting with severe anemia with hemoglobin to 4.� I discussion with the patient, she does have some constipation and back pain.� It
was previously reported she also had abdominal pain.� She thinks her stools have been dark recently.� She does take a lot of ibuprofen about 1-2 times a day for the last month.� She saw Dr. Artis in May for rectal bleeding and constipation and
he recommended a colonoscopy.� She decided to hold off at that time as she was undergoing a lot with her breast cancer.� In the ER the stool is dark brown guaiac positive.� Never underwent an endoscopy or colonoscopy.� Not on any blood thinners.
Overnight received 2U PRBC and Hb improved to 8; attempted to prep for EGD/colon patient felt too fatigued asked to postpone a day.
Plan for egd/cscope tomorrow, prep reordered and patient placed on schedule, r/a/b reviewed yesterday with patient.
Trend Hb.
Subjective
Subjective
Date of Service: August 27, 2023
pt did not take prep overnight felt too much with transfusions
does not want any procedure today, feels too fatigued
had some diarrhea (had 2 cups of prep), dark brown per patient
Objective
Data Reviewed
Laboratory Data:
Laboratory Results
08/27/23 06:01
Laboratory Results
PT 14.8 Sec (11.4-14.6) H 08/26/23 14:40
INR 1.16 08/26/23 14:40
APTT 41.3 Sec (23.4-35.0) H 08/26/23 14:40
Magnesium 2.3 mg/dl (1.6-2.3) 08/27/23 06:01
Total Bilirubin 1.2 mg/dl (0.2-1.3) 08/27/23 06:01
AST 65 U/L (14-36) H 08/27/23 06:01
ALT < 10 U/L (0-35) 08/27/23 06:01
Alkaline Phosphatase 120 U/L (38-126) 08/27/23 06:01
Lipase 52 U/L (23-300) 08/26/23 13:38
Vital Signs and I&O:
Vital Signs
Temp Pulse Resp BP Pulse Ox
98.4 F 107 16 125/79 100
08/27/23 07:00 08/27/23 07:00 08/27/23 07:00 08/27/23 07:00 08/27/23 07:00
I&O
08/26/23 08/27/23 08/28/23
06:59 06:59 06:59
Intake Total 970 / 970
Balance 970 / 970
Physical Exam
Physical Exam
GI: Non Distended and Non Tender
--- NOTE | 2023-08-27 11:01 | W.PN.HOSP.TC ---
Today's Communication/Plan
-
NPO after MN for EGD/[place]
Assessment / Plan
Assessment / Plan
Ms. Maria Luisa Carmona is a 63 yo woman with hx anxiety/depression, metastatic breast cancer, recent finding of potential cancerous lesion of adnexa (found 1 week ago at ER visit) presents to the ER with abdominal pain.
Abdomen/Pelvis CT from 08/19/23
IMPRESSION:
1).There is new�lobular soft tissue in the presacral region and left adnexa which is high-level suspicion for malignant involvement.
The presacral component measures approximately 2.5 x 4.5 x 4.0 cm and is confluent with the lobular left adnexal component which measures approximately 8 x 2 x 3 cm.There is associated left periureteral stranding with borderline left hydronephrosis
as well as stranding in the left inguinal region. Differential diagnosis for these findings include metastatic implants from the patient's known breast carcinoma as well as ovarian carcinoma. The possibility that these changes are inflammatory is
less likely. Pelvic MRI and PET scan useful for further evaluation
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
ordered for 2 units PRBC
Severe symptomatic Anemia
-report of black stools, heme guaiac positive
-ordered for 2 units PRBC in ER; appropriate rise this AM
-admit to telemetry
-trend Hg and continue to transfuse to keep Hg > 7
-GI consult appreciated
-clears
-NPO after MN for EGD/[place] tomorrow
Hx Metastatic Breast Cancer
Recent finding lobular soft tissue in presacral region and left adnexa
Left flank pain likely 2/2 metastatic finding above; no e/o bruising to suggest hematoma
-patient sees Dr. Jacobson
-IV dilaudid PRN
-patient states she tried lidocaine patch without effect
-Oncology consulted
Anxiety/Depression
-FIREWORKS DISPLAY SPECIALIST regimen Cymbalta, Sertraline and Xanax PRN
DVT PPx SCD
FULL CODE
Anticipated Discharge: 24 - 48 hours
Subjective/Interval History
-
Date of Service: August 27, 2023
feeling better today
pain better controlled
less lightheaded/fatigued
Objective Data
-
Labs:
Laboratory Results
08/27/23 08/27/23 08/27/23
00:02 06:01 11:30
WBC 9.8
Hgb 8.1 L D 8.1 L Cancelled
Hct 25.0 L
Plt Count 77 L D
Sodium 131 L
Potassium 4.4
Chloride 101
Carbon Dioxide 20 L
BUN 12
Creatinine 0.5 L
Glucose 98
Calcium 8.0 L
Total Bilirubin 1.2
AST 65 H
ALT < 10
Alkaline Phosphatase 120
08/27/23 08/27/23
16:00 17:30
WBC
Hgb Pending Cancelled
Hct
Plt Count
Sodium
Potassium
Chloride
Carbon Dioxide
BUN
Creatinine
Glucose
Calcium
Total Bilirubin
AST
ALT
Alkaline Phosphatase
Vital Signs:
Vital Signs
Temp Pulse Resp BP Pulse Ox
98.4 F 107 16 125/79 100
08/27/23 07:00 08/27/23 07:00 08/27/23 07:00 08/27/23 07:00 08/27/23 07:00
I&O
08/26/23 08/27/23 08/28/23
06:59 06:59 06:59
Intake Total 970 / 970
Balance 970 / 970
Review of Systems
-
History Source: Patient
All other systems: Reviewed and negative
Physical Exam
-
General: No Apparent Distress
HEENT: Normocephalic and Atraumatic
Respiratory: Clear to Auscultation
Cardiac: Regular Rhythm and S1/S2
Breast: Deferred by me
GI: Soft, Nontender and Distended
Rectal: Deferred by Provider
Genito-urinary: Deferred by me
Musculoskeletal: No Clubbing, No Cyanosis and No Edema
Skin: Warm
Neuro: Awake and Nonfocal/Grossly Intact
Psych: Calm
Data Reviewed
-
Diagnostic Radiology: Report Reviewed by me
Labs: Labs Reviewed by me
[2023-08-27 11:25] VITALS: BP 121/75; BP 124/76; PULSE 108; PULSE 114
[2023-08-27] MEDS: DULCOLAX 10 MG PO (14:37)
[2023-08-27 15:32] VITALS: BP 110/70; BP 114/72; BP 115/70; PULSE 103; PULSE 110; PULSE 116
[2023-08-27 16:04] LABS: Hemoglobin 8.3 g/dL (12.0-16.0)
[2023-08-27] MEDS: GAVILAX 238 GM PO (17:03)
[2023-08-27 19:35] VITALS: BP 130/86
[2023-08-27] MEDS: CYMBALTA DELAYED RELEASE 60 MG PO (21:13)
[2023-08-27 23:06] VITALS: BP 107/71
[2023-08-28] VITALS (9 sets, daily range): BP systolic 19–124; BP diastolic 66–83; BMI 21.2
[2023-08-28] MEDS: DILAUDID 0.5 MG IV ×3 (01:21→23:31)
[2023-08-28] MEDS: FLUSH (NSS) 2 FLUSH IV (01:23)
--- NOTE | 2023-08-28 04:37 | PTCARENOTE ---
@2140;Pt stated,'I just had brown poop that looked like coffee grounds.It only happened once.Pt was encouraged numerous times during shift to drink bowel prep.Pt response would be ,'I'm working on it'.@0330; Pt still had 1 bottle of Gatorade prep
not finished.Pt had dark brown liquid stool at that time,which you could not see through.
--- NOTE | 2023-08-28 05:09 | PTCARENOTE ---
Pt requesting Dilaudid 0.5 IV for #9 pain in B/L hips and low back this shift @ 2141 and 0121.
[2023-08-28 06:24] LABS: Hematocrit 25.3 % (37.0-47.0); Hemoglobin 8.4 g/dL (12.0-16.0); Mean Corp Hgb Conc. 33.2 g/dL (33.0-37.0); Mean Corpuscular Hgb 27.8 pg (27.0-31.0); Mean Corpuscular Volume 83.8 fL (81.0-99.0); Mean Platelet Volume 10.9 fL (7.4-10.4); Platelet Count 71 10^3/uL (130-400); Red Blood Cell Count 3.02 10^6/uL (4.20-5.40); Red Cell Dist. Width 19.7 % (11.5-14.5); White Blood Cell Count 8.3 10^3/uL (4.8-10.8)
[2023-08-28 06:52] LABS: Blood Urea Nitrogen 10 mg/dl (7-17); Calcium 8.2 mg/dl (8.4-10.2); Carbon Dioxide 22 mmol/L (22-30); Chloride 98 mmol/L (98-107); Estimated Creatinine Clearance 81 ml/min; Glucose 107 mg/dl (70-99); Magnesium 2.4 mg/dl (1.6-2.3); Potassium 3.9 mmol/L (3.5-5.1); Sodium 130 mmol/L (135-145); eGFR > 60.00
[2023-08-28] MEDS: TYLENOL 650 MG PO (07:38)
[2023-08-28] MEDS: PROTONIX IV 40 MG IV (07:40)
[2023-08-28] MEDS: NSS (PRESERVATIVE FREE) 10 ML IV (07:40)
--- NOTE | 2023-08-28 10:42 | W.PN.HOSP.TC ---
Today's Communication/Plan
-
UA
pain control
daily PPI
appreciate GI and Onc
possible DC today if pain controlled
Assessment / Plan
Assessment / Plan
Ms. Maria Luisa Carmona is a 63 yo woman with hx anxiety/depression, metastatic breast cancer, recent finding of potential cancerous lesion of adnexa (found 1 week ago at ER visit) presents to the ER with abdominal pain.
Abdomen/Pelvis CT from 08/19/23
IMPRESSION:
1).There is new�lobular soft tissue in the presacral region and left adnexa which is high-level suspicion for malignant involvement.
The presacral component measures approximately 2.5 x 4.5 x 4.0 cm and is confluent with the lobular left adnexal component which measures approximately 8 x 2 x 3 cm.There is associated left periureteral stranding with borderline left hydronephrosis
as well as stranding in the left inguinal region. Differential diagnosis for these findings include metastatic implants from the patient's known breast carcinoma as well as ovarian carcinoma. The possibility that these changes are inflammatory is
less likely. Pelvic MRI and PET scan useful for further evaluation
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
Colonoscopy 08/28/23
Impression:� � � � � � - Preparation of the colon was fair.
�� � � � � � � � � � � - Tortuous colon.
�� � � � � � � � � � � -A few medium-mouthed diverticula were found in the
�� � � � � � � � � � � sigmoid colon.
�� � � � � � � � � � � - Internal hemorrhoids.
�� � � � � � � � � � � - No evidence of any active bleeding
Recommendation:� � � � - [facility] for [facility] care.
�� � � � � � � � � � � - Resume regular diet.
�� � � � � � � � � � � - monitor Hb
�� � � � � � � � � � � - video capsule endoscopy as outpatient to complete GI
�� � � � � � � � � � � eval for anemia
�� � � � � � � � � � � - GI will sign off . Please call us back if any
�� � � � � � � � � � � questions
EGD 08/28/23
Impression:� � � � � � - Patchy, white plaques were found in the entire
�� � � � � � � � � � � esophagus. Biopsies were taken with a cold forceps r/o
�� � � � � � � � � � � candidiasis
�� � � � � � � � � � � - Gastritis. Biopsied.
�� � � � � � � � � � � - Duodenal lipoma. Biopsied.
�� � � � � � � � � � � - Normal mucosa was found in the duodenal bulb and in
�� � � � � � � � � � � the second portion of the duodenum.
Recommendation:� � � � - [facility] for [facility] care.
�� � � � � � � � � � � - Telephone GI office for pathology results in 2 weeks.
�� � � � � � � � � � � - Use Protonix (pantoprazole) 40 mg PO daily.
�� � � � � � � � � � � - see colonoscopy report
Severe symptomatic Anemia
-report of black stools, heme guaiac positive
-ordered for 2 units PRBC in ER; appropriate rise this AM
-Hg has been stable post transfusion
-GI consult appreciated
-s/p EGD/[place] this AM - results above, no explanation for anemia
White plaques seen on EGD - concern for candidiasis
-patient without symptoms of difficulty swallowing
-will wait for path prior to starting any treatment given patient asymptomatic
Hx Metastatic Breast Cancer
Recent finding lobular soft tissue in presacral region and left adnexa
Left flank pain likely 2/2 metastatic finding above; no e/o bruising to suggest hematoma
-patient sees Dr. Jacobson
-start oxycodone now that patient is on regular diet
-IV dilaudid PRN
-will repeat UA as patient concerned about UTI
-patient states she tried lidocaine patch without effect
-Oncology consulted
Anxiety/Depression
-OPERATIONS DIRECTOR regimen Cymbalta, Sertraline and Xanax PRN
DVT PPx SCD
FULL CODE
Anticipated Discharge: Within 24 hours
Subjective/Interval History
-
Date of Service: August 28, 2023
she states she is having increased flank pain that she has had on and off before
no dysuria
does not feel she needs another CT scan (this scan was done when patient was already having this pain )
Objective Data
-
Labs:
Laboratory Results
08/28/23
05:59
WBC 8.3
Hgb 8.4 L
Hct 25.3 L
Plt Count 71 L
Sodium 130 L
Potassium 3.9
Chloride 98
Carbon Dioxide 22
BUN 10
Creatinine 0.4 L
Glucose 107 H
Calcium 8.2 L
Vital Signs:
Vital Signs
Temp Pulse Resp BP Pulse Ox
97.6 F 97 21 113/81 100
08/28/23 08:50 08/28/23 10:05 08/28/23 10:05 08/28/23 10:05 08/28/23 10:05
I&O
08/27/23 08/28/23 08/29/23
06:59 06:59 06:59
Intake Total 970 / 970 1969
Balance 970 / 970 1969
Review of Systems
-
History Source: Patient
All other systems: Reviewed and negative
Physical Exam
-
General: No Apparent Distress
HEENT: Normocephalic and Atraumatic
Respiratory: Clear to Auscultation
Cardiac: Regular Rhythm and S1/S2
Breast: Deferred by me
GI: Soft, Nontender and Distended
Rectal: Deferred by Provider
Genito-urinary: Deferred by me
Musculoskeletal: No Clubbing, No Cyanosis and No Edema
Skin: Warm
Neuro: Awake and Nonfocal/Grossly Intact
Psych: Calm
Data Reviewed
-
Diagnostic Radiology: Report Reviewed by me
Labs: Labs Reviewed by me
[2023-08-28] MEDS: ROXICODONE 5 MG PO ×3 (11:18→22:32)
--- NOTE | 2023-08-28 11:18 | W.PN.ONC ---
Addendum entered and electronically signed by Cristian Harris MD 08/28/23 15:40:
Hematology/ Oncology Addendum:
-pt seen and evaluated and agree w/ EVENT AV OPERATOR note and plan as outlined
-outpt f/u w/ Dr. Jacobson for continued management
Original Note:
Today's Communication / Plan
-
08/27 Hgb 8.4, Hct 25.3, PLT 71
s/p 2units PRBCs
Transfuse as needed to maintain Hgb >7, PLT >20 (or >50 with active bleeding)
08/27 s/p EGD/colonoscopy with GI: no evidence of active bleeding, white plaques seen on EGD concerning for candidiasis
Outpatient capsule study recommended, GI signed off
Monitor for further bleeding with heme+stools
Reschedule outpatient bone marrow bx in [facility]
Emotional support
Pain management
Discussed left hip/back pain and the lesion seen on imaging. Consider outpatient pelvic MRI or PET/CT to further evaluate lobular soft tissue mass in the presacral/left adnexa region (with referral to Veneer Matcher/Onc if needed) Patient wishes to discuss
this further with Dr. Jacobson in followup. She is overwhelmed with financial burden of treatments and exhausted from hospitalization. Our office has been updated regarding her clinical status and possible discharge today. Recommend CBC on Thursday to
monitor counts. Follow up with Dr. Jacobson next week. Our office will call to confirm with patient.
Impression
Impression
Severe symptomatic blood loss anemia (baseline Hgb 8-10)
Metastatic breast cancer (2018 s/p radiation, Letrozole/Ibrance)
Bilateral mastectomy (12/2019)
Lymph node dissection (05/2020, radiation/Xeloda dc 10/2022)
Bone mets (09/2022, initiated Enhertu 10/2022 switched to Orserdu late 2022, dc early 2023)
Recent radiation to left hip (2023)
New lesion to adnexa on imaging (2023)
Left hip/back pain
Hyponatremia
Hypocalcemia
Frequent NSAID use
Mild thrombocytopenia
Subjective/Objective
Subjective/Objective
s/p colonoscopy/EGD. denies pain or evidence of bleeding. she notes fatigue. she is resting comfortably. She is eager for discharge.
Vital Signs:
Vital Signs
Temp Pulse Resp BP Pulse Ox
97.7 F 94 18 116/83 100
08/28/23 10:45 08/28/23 10:45 08/28/23 10:45 08/28/23 10:45 08/28/23 10:45
Lab Results:
Laboratory Data
WBC 8.3 10^3/uL (4.8-10.8) 08/28/23 05:59
Hgb 8.4 g/dL (12.0-16.0) L 08/28/23 05:59
Plt Count 71 10^3/uL (130-400) L 08/28/23 05:59
PT 14.8 Sec (11.4-14.6) H 08/26/23 14:40
INR 1.16 08/26/23 14:40
APTT 41.3 Sec (23.4-35.0) H 08/26/23 14:40
eGFR > 60.00 08/28/23 05:59
physical exam:
aaox3, pleasant
HRR, lungs clear, room air
+bowel sounds, hypoactive
08/19/23 CT abd/pelvis: There is new lobular soft tissue in the presacral region and left adnexa which is high-level suspicion for malignant involvement.
The presacral component measures approximately 2.5 x 4.5 x 4.0 cm and is confluent with the lobular left adnexal component which measures approximately 8 x 2 x 3 cm.There is associated left periureteral stranding with borderline left hydronephrosis
as well as stranding in the left inguinal region. Differential diagnosis for these findings include metastatic implants from the patient's known breast carcinoma as well as ovarian carcinoma. The possibility that these changes are inflammatory is
less likely. Pelvic MRI and PET scan useful for further evaluation. 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
[2023-08-28] MEDS: CYMBALTA DELAYED RELEASE 60 MG PO (21:49)
--- NOTE | 2023-08-29 00:12 | PTCARENOTE ---
Patient c/o 8-02/15 severe pain to back and B/L hips. Provided patient with PRN oxycodone with no relief -- patient states 'This is not touching my pain at all, it didn't work for me earlier either.' Provided patient with breakthrough PRN Dilaudid --
will monitor. Call rodriguez is within reach, patient rings appropriately for assist.
[2023-08-29 03:00] VITALS: BP 111/75
[2023-08-29 07:00] VITALS: BP 120/79
[2023-08-29] MEDS: ROXICODONE 5 MG PO (08:09)
[2023-08-29] MEDS: PROTONIX 40 MG PO (08:09)
--- NOTE | 2023-08-29 10:33 | W.PN.HOSP.TC ---
Today's Communication/Plan
-
pain control with oxycodone
F/U UA
possible DC later today
Assessment / Plan
Assessment / Plan
Ms. Maria Luisa Carmona is a 63 yo woman with hx anxiety/depression, metastatic breast cancer, recent finding of potential cancerous lesion of adnexa (found 1 week ago at ER visit) presents to the ER with abdominal pain.
Abdomen/Pelvis CT from 08/19/23
IMPRESSION:
1).There is new�lobular soft tissue in the presacral region and left adnexa which is high-level suspicion for malignant involvement.
The presacral component measures approximately 2.5 x 4.5 x 4.0 cm and is confluent with the lobular left adnexal component which measures approximately 8 x 2 x 3 cm.There is associated left periureteral stranding with borderline left hydronephrosis
as well as stranding in the left inguinal region. Differential diagnosis for these findings include metastatic implants from the patient's known breast carcinoma as well as ovarian carcinoma. The possibility that these changes are inflammatory is
less likely. Pelvic MRI and PET scan useful for further evaluation
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
Colonoscopy 08/28/23
Impression:� � � � � � - Preparation of the colon was fair.
�� � � � � � � � � � � - Tortuous colon.
�� � � � � � � � � � � -A few medium-mouthed diverticula were found in the
�� � � � � � � � � � � sigmoid colon.
�� � � � � � � � � � � - Internal hemorrhoids.
�� � � � � � � � � � � - No evidence of any active bleeding
Recommendation:� � � � - [facility] for [facility] care.
�� � � � � � � � � � � - Resume regular diet.
�� � � � � � � � � � � - monitor Hb
�� � � � � � � � � � � - video capsule endoscopy as outpatient to complete GI
�� � � � � � � � � � � eval for anemia
�� � � � � � � � � � � - GI will sign off . Please call us back if any
�� � � � � � � � � � � questions
EGD 08/28/23
Impression:� � � � � � - Patchy, white plaques were found in the entire
�� � � � � � � � � � � esophagus. Biopsies were taken with a cold forceps r/o
�� � � � � � � � � � � candidiasis
�� � � � � � � � � � � - Gastritis. Biopsied.
�� � � � � � � � � � � - Duodenal lipoma. Biopsied.
�� � � � � � � � � � � - Normal mucosa was found in the duodenal bulb and in
�� � � � � � � � � � � the second portion of the duodenum.
Recommendation:� � � � - [facility] for [facility] care.
�� � � � � � � � � � � - Telephone GI office for pathology results in 2 weeks.
�� � � � � � � � � � � - Use Protonix (pantoprazole) 40 mg PO daily.
�� � � � � � � � � � � - see colonoscopy report
Severe symptomatic Anemia
-report of black stools, heme guaiac positive
-ordered for 2 units PRBC in ER; appropriate rise
-Hg has been stable post transfusion
-GI consult appreciated
-s/p EGD/[place] on 08/27 - results above, no explanation for anemia
White plaques seen on EGD - concern for candidiasis
-patient without symptoms of difficulty swallowing
-will wait for path prior to starting any treatment given patient asymptomatic
Hx Metastatic Breast Cancer
Recent finding lobular soft tissue in presacral region and left adnexa
Left flank pain likely 2/2 metastatic finding above; no e/o bruising to suggest hematoma
-patient sees Dr. Jacobson
-start oxycodone now that patient is on regular diet
-IV dilaudid PRN
-will repeat UA as patient concerned about UTI
-patient states she tried lidocaine patch without effect
-Oncology consulted
Anxiety/Depression
-CHEMISTRY QUALITY CONTROL TECHNICIAN regimen Cymbalta, Sertraline and Xanax PRN
DVT PPx SCD
FULL CODE
Anticipated Discharge: Within 24 hours
Subjective/Interval History
-
Date of Service: August 29, 2023
states oxy 5 helped her this morning
she states she had urinary incontinence and urine was collected last night
able to walk around room
no groin anesthesia
Objective Data
-
Vital Signs:
Vital Signs
Temp Pulse Resp BP Pulse Ox
98.3 F 111 18 120/79 98
08/29/23 07:00 08/29/23 07:00 08/29/23 07:00 08/29/23 07:00 08/29/23 07:00
I&O
08/28/23 08/29/23 08/30/23
06:59 06:59 06:59
Intake Total 1969 500 / 500
Balance 1969 500 / 500
Review of Systems
-
History Source: Patient
All other systems: Reviewed and negative
Physical Exam
-
General: No Apparent Distress
HEENT: Normocephalic and Atraumatic
Respiratory: Clear to Auscultation
Cardiac: Regular Rhythm and S1/S2
Breast: Deferred by me
GI: Soft, Nontender and Distended
Rectal: Deferred by Provider
Genito-urinary: Deferred by me
Musculoskeletal: No Clubbing, No Cyanosis, No Edema and Other (can lift b/l/ legs off bed; no mid-spine pain )
Skin: Warm
Neuro: Awake and Nonfocal/Grossly Intact
Psych: Calm
Data Reviewed
-
Diagnostic Radiology: Report Reviewed by me
Labs: Labs Reviewed by me
[2023-08-29 11:00] VITALS: BP 126/76
[2023-08-29 11:47] LABS: Urine Albumin Negative (Neg - Trace); Urine Bilirubin 1+ (Negative); Urine Character Clear (Clear); Urine Color Yellow; Urine Glucose Negative (Negative); Urine Ketone 1+ (Negative); Urine Leukocyte Negative (Negative); Urine Nitrite Negative (Negative); Urine Occult Blood Negative (Negative); Urine Urobilinogen Negative (Neg - 1+)
[2023-08-29] MEDS: MIRALAX 17 GRAMS PO (12:14)
[2023-08-29] MEDS: COLACE 100 MG PO (12:14)
--- NOTE | 2023-08-29 12:51 | W.PN.UPDATE ---
Addendum entered and electronically signed by Jessica Ocasio MD 08/29/23 12:56:
patient clarifying she saw skin changes under her eye and her pupils are always asymmetric, same that her dad had
no need for urgent CT
Original Note:
Update Note
Progress Note Update
patient noticing new pupil asymmetry
will obtain CT head/neck angio; patient does not want to stay for MRI. Will need close follow up as outpatient
--- NOTE | 2023-08-29 13:16 | W.DS.TRANS ---
DC Summary - Tire Maintenance Technician
-
Discharge Instructions:
Discharge Diagnosis/Procedures anemia
Diet Regular
Activity As tolerated
Driving Restrictions As prior to admission
Bathing Restrictions None
Blood Work cbc in 3-5 days to be ordered by Dr. Jacobson
Instructions:
Stand-Alone Forms:
Changes to Home Medications: Yes
Discharge Medications:
DC Medications w/original date entered in [facility]
sertraline 100 mg tablet 100 mg PO DAILY Depression 01/11/18
acetaminophen 325 mg tablet (Tylenol) 650 mg PO Q6HPRN PRN mild pain 08/26/23
alprazolam 0.5 mg tablet (Xanax) 1 mg PO BIDPRN PRN Sleep/anxiety 08/26/23
duloxetine 30 mg capsule,delayed release (Cymbalta) 60 mg PO HS Depression 08/26/23
Marijuana Gummies 1 gummy PO PRN PRN Sleep 08/27/23
gabapentin 300 mg capsule 300 mg PO PRN PRN Nerve Pain 08/27/23
oxycodone 5 mg tablet 5 mg PO Q4HPRN PRN severe pain #20 tabs 08/29/23
pantoprazole 40 mg tablet,delayed release 40 mg PO DAILY #30 tabs 08/29/23
polyethylene glycol 3350 17 gram oral powder packet (HealthyLax) 17 g PO DAILY #0 ea 08/29/23
Home Medication Changes
addition of oxy PRN
protonix daily
Pending Results: Yes
Additional Pending Results:
path from egd/[facility]
--- NOTE | 2023-08-29 14:24 | W.DCSUMMARY ---
Discharge Summary
Discharge Data
Date of Admission: 08/26/23
Date of Discharge: 08/29/23
-
Pending Results: No
Hospital Course
Discharging Physician : Dr. Jessica Ocasio
Disposition : Home
Primary care physician : Dr. Kj Landa
Principal Discharge diagnosis : Anemia
Hospital Course :
Ms. Maria Luisa Carmona is a 63 yo woman with hx anxiety/depression, metastatic breast cancer, recent finding of potential cancerous lesion of adnexa (found 1 week ago at ER visit) presents to the ER with abdominal pain and weakness/fatigue. Triage vitals
significant for pulse 112, BP 94/61. Labs with Hg 4.4 (was 8.2 08/05/23), Cr 0.5. She was admitted to medicine with GI consulting. She received 2 units PRBC with appropriate rise and stable Hg following. She was started on PPI. EGD/[place] performed
(results below) without explanation of anemia. Plan is for outpatient capsule study and close monitoring blood counts as outpatient. She is discharged on protonix 40mg daily.
During hospitalization patient complained significant left flank pain (similar pain to last ER visit where CT showed potential cancerous lesion). Pain is likely related to this mass. Given malignancy related pain she is given a script for
oxycodone. Per Oncology note: 'Consider outpatient pelvic MRI or PET/CT to further evaluate lobular soft tissue mass in the presacral/left adnexa region (with referral to [facility]/Onc if needed)� Patient wishes to discuss this further with Dr. Jacobson
in followup.'
Of note on day of discharge it was noted that patient's pupils are different sizes but she states this is a chronic finding. She has no change in vision, no ptosis, no headache.
Time spent on discharge was 35 minutes.
Important imaging findings :
Procedure findings :
Colonoscopy 08/28/23
Impression:� � � � � � - Preparation of the colon was fair.
�� � � � � � � � � � � - Tortuous colon.
�� � � � � � � � � � � -A few medium-mouthed diverticula were found in the
�� � � � � � � � � � � sigmoid colon.
�� � � � � � � � � � � - Internal hemorrhoids.
�� � � � � � � � � � � - No evidence of any active bleeding
Recommendation:� � � � - Return patient [facility] for [facility] care.
�� � � � � � � � � � � - Resume regular diet.
�� � � � � � � � � � � - monitor Hb
�� � � � � � � � � � � - video capsule endoscopy as outpatient to complete GI
�� � � � � � � � � � � eval for anemia
�� � � � � � � � � � � - GI will sign off . Please call us back if any
�� � � � � � � � � � � questions
EGD 08/28/23
Impression:� � � � � � - Patchy, white plaques were found in the entire
�� � � � � � � � � � � esophagus. Biopsies were taken with a cold forceps r/o
�� � � � � � � � � � � candidiasis
�� � � � � � � � � � � - Gastritis. Biopsied.
�� � � � � � � � � � � - Duodenal lipoma. Biopsied.
�� � � � � � � � � � � - Normal mucosa was found in the duodenal bulb and in
�� � � � � � � � � � � the second portion of the duodenum.
Recommendation:� � � � - Return patient to [facility] for ongoing care.
�� � � � � � � � � � � - Telephone GI office for pathology results in 2 weeks.
�� � � � � � � � � � � - Use Protonix (pantoprazole) 40 mg PO daily.
�� � � � � � � � � � � - see colonoscopy report
Discharge Plan
-
Patient Disposition: Home (Routine Discharge)
Discharge Diagnosis/Procedures: anemia
Diet: Regular
Activity: As tolerated
Driving Restrictions: As prior to admission
Bathing Restrictions: None
Blood Work: cbc in 3-5 days to be ordered by Dr. Jacobson
Referrals:
Gabriela Jacobson MD [Active] - in less than 1 week
NONE,* [Family Provider] - in less than 1 week
Annalee Reinoso MD [Active] - in one to two weeks (follow up for scheduling of outpatient capsule endoscopy)
Additional Discharge Medication Instructions: take oxycodone as needed for severe pain. do not drive after taking this medication.
Prescriptions:
New
polyethylene glycol 3350 [HealthyLax] 17 gram Powder In Packet
17 g PO DAILY Qty: 0 0RF
pantoprazole 40 mg Tablet,Delayed Release (Dr/Ec)
40 mg PO DAILY Qty: 30 0RF
oxycodone 5 mg Tablet
5 mg PO Q4HPRN PRN (Reason: severe pain) Qty: 20 0RF
Continued
sertraline 100 MG tablet
100 mg PO DAILY
Patient Comments:
Not taking anymore
acetaminophen [Tylenol] 325 mg Tablet
650 mg PO Q6HPRN PRN (Reason: mild pain)
alprazolam [Xanax] 0.5 mg Tablet
1 mg PO BIDPRN PRN (Reason: Sleep/anxiety)
Rx Instructions:
0.5 - 1 tablet PRN sleep
duloxetine [Cymbalta] 30 mg Capsule,Delayed Release(Dr/Ec)
60 mg PO HS
gabapentin 300 mg capsule
300 mg PO PRN PRN (Reason: Nerve Pain )
Marijuana Gummies
1 gummy PO PRN PRN (Reason: Sleep)
Discharge Orders:
Discharge Patient (As Directed); Ordered 08/29/23
Ordered By: Jessica Ocasio
[2023-08-29 15:00] VITALS: BP 126/90
== END 2023-08-29 16:13 | disposition home or self-care (01) | DRG 812 ==
LOC: 3 WEST ACU 16:43
PROVIDERS: Internal Medicine Gastroenterology; Physician Assistant; ADMITTING PHYSICIAN Student in an Organized Health Care Education/Training Program; CONSULT PHYSICIAN Internal Medicine Gastroenterology; CONSULT PHYSICIAN Internal Medicine Hematology & Oncology; EMERGENCY PHYSICIAN Emergency Medicine
PROC: 30233N1 Transfusion of Nonautologous Red Blood Cells into Peripheral Vein, Percutaneous Approach (ICD-10-PCS; 2023-08-26)
PROC: 0DB68ZX Excision of Stomach, Via Natural or Artificial Opening Endoscopic, Diagnostic (ICD-10-PCS; 2023-08-28)
PROC: 0DB58ZX Excision of Esophagus, Via Natural or Artificial Opening Endoscopic, Diagnostic (ICD-10-PCS; 2023-08-28)
PROC: 0DB98ZX Excision of Duodenum, Via Natural or Artificial Opening Endoscopic, Diagnostic (ICD-10-PCS; 2023-08-28)
PROC: 0DJD8ZZ Inspection of Lower Intestinal Tract, Via Natural or Artificial Opening Endoscopic (ICD-10-PCS; 2023-08-28)
DX: D50.0 Iron deficiency anemia secondary to blood loss (chronic) (principal); B37.81 Candidal esophagitis; C56.9 Malignant neoplasm of unspecified ovary; C79.51 Secondary malignant neoplasm of bone; E87.1 Hypo-osmolality and hyponatremia; M48.54XA Collapsed vertebra, not elsewhere classified, thoracic region, initial encounter for fracture; N13.30 Unspecified hydronephrosis; F32.A Depression, unspecified; E78.00 Pure hypercholesterolemia, unspecified; C50.919 Malignant neoplasm of unspecified site of unspecified female breast; E83.51 Hypocalcemia; F41.0 Panic disorder [episodic paroxysmal anxiety]; K64.8 Other hemorrhoids; Q89.9 Congenital malformation, unspecified; G89.3 Neoplasm related pain (acute) (chronic); D17.5 Benign lipomatous neoplasm of intra-abdominal organs; K57.30 Diverticulosis of large intestine without perforation or abscess without bleeding; D69.6 Thrombocytopenia, unspecified; K29.70 Gastritis, unspecified, without bleeding; Z85.3 Personal history of malignant neoplasm of breast; Z87.891 Personal history of nicotine dependence; Z88.5 Allergy status to narcotic agent; Z88.8 Allergy status to other drugs, medicaments and biological substances; Z91.041 Radiographic dye allergy status; Z92.3 Personal history of irradiation; Z92.21 Personal history of antineoplastic chemotherapy; Z90.13 Acquired absence of bilateral breasts and nipples
CPT/HCPCS: 88305; 88312; 36430; 80048; 80053; 81003; 81015; 82607; 82728; 82746; 83540; 83550; 83690; 83735; 85018; 85025; 85027; 85610; 85730; 86850; 86900; 86901; 86920; 88341; 88342; 96374; 96375; 99285; P9016

== ENCOUNTER 2023-09-08 10:54 | Emergency (ER) | payer OTHER, SELFPAY ==
[2023-09-08] VITALS (9 sets, daily range): BP systolic 96–130; BP diastolic 59–77; BMI 21.6
--- NOTE | 2023-09-08 11:14 | ED.GENMED ---
History of Present Illness
General
Chief Complaint: Abnormal Lab Value
Time Seen by Provider: 09/08/23 11:14
Travel History
Have you had any contact with someone who has COVID-19?: No
Do you have any symptoms of coronavirus? Fever > 100 degrees, chills, cough, shortness of breath, sore throat, loss of taste or smell, muscle aches, or headache?: No
History of Present Illness
History of Present Illness:
HPI: Patient was sent from [facility] that showed hemoglobin of 4.4. The patient was admitted here about 2 weeks ago also with a hemoglobin of 4.4. She received blood and had EGD/[place] without explanation of anemia. She was to
have outpatient capsule study. She has weakness but no shortness of breath. She does not want to stay in the hospital.
EXAM:
GENERAL: Appears generally weak
HEENT: Moist oral mucosa, conjunctival pallor
CARDIOVASCULAR: No murmurs, normal heart rate, regular rhythm, No chest wall tenderness
PULMONARY: No respiratory distress, breath sounds are clear and equal
ABDOMEN: Soft with no peritoneal signs, no tenderness, the patient refuses digital rectal examination to check for blood
NEUROLOGIC: Excellent strength all extremities, no coordination deficits
PSYCHIATRIC: Appropriate mental status, normal insight and judgement
EXTREMITIES: Nontender, no edema, moves all extremities equally
SKIN: Appears pale
TIME OF INITIAL ENCOUNTER: 12 PM
NUMBER AND COMPLEXITY OF PROBLEMS ADDRESSED AT THE ENCOUNTER
� Chronic conditions affecting care: Has had cauda equina syndrome, breast cancer, anxiety/depression
� Acute Exacerbation and/or Progression of Chronic Illness: This is an acute but recurring problem
� Differential Diagnosis includes: Progression of malignancy, worsening anemia, GI bleed
AMOUNT AND/OR COMPLEXITY OF DATA TO BE REVIEWED AND ANALYZED
� I performed an independent evaluation of and my interpretation is:
EKG:
CT:
X-rays:
Laboratory Studies: Hemoglobin from this morning was 4.4�this is confirmed to be the same on the blood work in the ED iron is 58, chemistries unremarkable. White count normal. MCV was 90.6.
Other:
� Review of other/old records: Records show the patient recently had imaging study that showed a lobular soft tissue mass in the left adnexal/presacral region
� Clinical information was obtained by an independent historian: Spoke to family at bedside
� Prescriptions/Medications Considered but not given:
� Further testing considered but not performed:
RISK OF COMPLICATIONS AND/OR MORBIDITY OR MORTALITY OF PATIENT MANAGEMENT
� Social determinants of health affecting care: Lives at home
� Discussion with other providers: Discussed with Dr. Gabriela Jacobson who agrees with plan of transfusing 2 units and outpatient management
� Escalation of care including admission/observation vs risk of discharge considered: Given the markedly low hemoglobin, I offered and recommended admission to the hospital however the patient adamantly refused. She has already
had endoscopy/colonoscopy. I notified Dr. Jacobson. Will give 2 units of blood and plan to discharge for outpatient follow-up. The patient has no shortness of breath but just some generalized weakness. The patient has been tolerating blood as of
3:30 PM, however she still has several hours of blood transfusion�will plan discharge after transfusion complete.
Past History
Past History
ED Past Medical History: Psychiatric (Anxiety and depression) and Other (Bone fractures)
ED Past Surgical History: None
Social History
Tobacco: Former smoker (Quit summer 2017)
Personal: Single
Living: alone
Employment: Not employed
Family History
Family History: Other
Phy Exam
Physical Exam
Physical Exam:
See HPI
Course
Orders/Labs/Results
Orders:
Orders
09/08/23 11:59
* Blood Bank Products Urgent
Blood Bank Products: *Packed RBC Leuko(PRBC's)
Quantity: 2
Transfuse Today: Yes
Reason: Anemia
09/08/23 12:10
Type+Screen Urgent
Basic Metabolic Panel Urgent
Complete Blood Count/With Diff Urgent
Ferritin Urgent
Iron Urgent
Total Iron Binding Urgent
Abnormal Lab Results
09/08/23
12:10
RBC 1.59 L 10^6/uL
(4.20-5.40)
Hgb 4.4 L* g/dL
(12.0-16.0)
Hct 14.4 L* %
(37.0-47.0)
MCHC 30.6 L g/dL
(33.0-37.0)
RDW 20.9 H %
(11.5-14.5)
Plt Count 116 L 10^3/uL
(130-400)
MPV 11.5 H fL
(7.4-10.4)
Abs Immat Gran (auto) 0.2 H 10^3/uL
(0-0.05)
Absolute Neuts (auto) 7.7 H 10^3/uL
(1.4-6.5)
Absolute Lymphs (auto) 0.5 L 10^3/uL
(1.2-3.4)
Absolute Monos (auto) 0.7 H 10^3/uL
(0.1-0.6)
Immature Gran % 1.9 H %
(0-0.5)
Neutrophils % 85.2 H %
(42.2-75.2)
Lymphocytes % 5.0 L %
(20.5-51.1)
Sodium 132 L mmol/L
(135-145)
Ferritin 1120.0 H ng/ml
(11.1-264.0)
Crossmatch IS Only See Detail
09/08/23 12:10
09/08/23 12:10
Vital Signs
Initial and Last Documented VS:
Initial Vital Signs
Temp Pulse Resp BP Pulse Ox
98 F 111 16 96/59 98
09/08/23 10:59 09/08/23 10:59 09/08/23 10:59 09/08/23 10:59 09/08/23 10:59
Last Documented Vital Signs
Temp Pulse Resp BP Pulse Ox
98.3 F 99 18 104/65 96
09/08/23 14:44 09/08/23 14:44 09/08/23 14:44 09/08/23 14:44 09/08/23 14:44
*Critical Care Note
Total Time (30-74mins, 75-104mins- exclusive of procedures): Not Applicable
ED Attending Note
-
Portions of this chart may have been created with voice recognition software.� Occasional wrong word or��sound alike� substitutions may have occurred due to the inherent limitations of voice recognition software.
Discharge Plan
Departure
Patient Disposition: Home (Routine Discharge)
Date of Disposition: 09/08/23
Time of Disposition: 13:20
Patient with high blood pressure during this ER visit?: No
Discharge Problem:
Anemia
Instructions: Normocytic Normochromic Anemia (DC)
Prescriptions:
No Action
polyethylene glycol 3350 [Miralax] 17 gram Powder In Packet
17 g PO DAILY
fluconazole 200 mg Tablet
200 mg PO DAILY
Patient Comments:
09/08/2023, pt. filled this med. on 09/04/2023 and is instructed to take one tablet daily for 14 days.
sertraline 100 mg Tablet
100 mg PO HS
alprazolam 0.5 mg Tablet
0.5 mg PO HS PRN (Reason: sleep/anxiety)
pantoprazole 40 mg Tablet,Delayed Release (Dr/Ec)
40 mg PO DAILY
ferrous sulfate [iron] 325 mg (65 mg iron) Tablet
325 mg PO DAILY
gabapentin 300 mg Capsule
300 mg PO TID PRN (Reason: nerve pain)
duloxetine 30 mg Capsule,Delayed Release(Dr/Ec)
60 mg PO .SEE BELOW
Patient Comments:
09/08/2023, currently on hold for about a week per pt.; pt. was taking 2 capsules HS before it was placed on hold.
cyanocobalamin (vitamin B-12)
1 tab PO DAILY
Referrals:
UNKNOWN - PT DOES,NOT KNOW [Family Provider] -
Activity Restrictions/Additional Instructions:
We have arranged to give you 2 units of blood. Your hemoglobin today was confirmed to be 4.4 on 2 occasions. I notified your oncologist, Dr. Jacobson who agrees with outpatient management. Your iron level was normal.
Interventions
Interventions:
*Risk Screen - Suicide Last Done: 09/08/23 10:59
*General Assessment Last Done: 09/08/23 10:59
*Neglect/Abuse Screening Last Done: 09/08/23 10:59
ED- Fall Risk Assessment Last Done: 09/08/23 12:13
*ED COVID-19 Vaccine History Last Done: 09/08/23 12:13
Discharge Date and Time
Print Language: ESTONIAN
--- NOTE | 2023-09-08 12:22 | EDRN ---
IV started in [facility] but unable to thread, good blood return and flushed w/ ease. IV VAT RN called and here to check site and possibly discontinue it and start another.
[2023-09-08 13:01] LABS: % Basophils 0.3 % (0-2); % Eosinophils 0.2 % (0-6); % Immature Granulocytes 1.9 % (0-0.5); % Monocytes 7.4 % (1.7-9.3); % Neutrophils 85.2 % (42.2-75.2); Absolute Immature Granulocytes 0.2 10^3/uL (0-0.05); Absolute Lymphocytes 0.5 10^3/uL (1.2-3.4); Absolute Monocytes 0.7 10^3/uL (0.1-0.6); Absolute Neutrophils 7.7 10^3/uL (1.4-6.5); Mean Corp Hgb Conc. 30.6 g/dL (33.0-37.0); Mean Corpuscular Hgb 27.7 pg (27.0-31.0); Mean Corpuscular Volume 90.6 fL (81.0-99.0); Mean Platelet Volume 11.5 fL (7.4-10.4); Nucleated Red Blood Cells % 0.4 %; Platelet Count 116 10^3/uL (130-400); Red Blood Cell Count 1.59 10^6/uL (4.20-5.40); Red Cell Dist. Width 20.9 % (11.5-14.5)
[2023-09-08 13:17] LABS: Blood Urea Nitrogen 16 mg/dl (7-17); Calcium 8.5 mg/dl (8.4-10.2); Carbon Dioxide 23 mmol/L (22-30); Chloride 98 mmol/L (98-107); Estimated Creatinine Clearance 81 ml/min; Glucose 98 mg/dl (70-99); Iron 58 ug/dl (37-170); Potassium 4.1 mmol/L (3.5-5.1); Sodium 132 mmol/L (135-145); eGFR > 60.00
[2023-09-08 13:18] LABS: Hematocrit 14.4 % (37.0-47.0); Hemoglobin 4.4 g/dL (12.0-16.0)
[2023-09-08 13:26] LABS: Percent Saturation 20 % (20-50); Total Iron Binding Capacity 282 ug/dl (265-497)
--- NOTE | 2023-09-08 14:33 | EDRN ---
Unit #1 started infusing at 14:44 Unit # [id number].
[2023-09-08] MEDS: TYLENOL 1000 MG PO (16:30)
== END 2023-09-08 18:57 | disposition home or self-care (01) ==
LOC: EMR 10:54
PROVIDERS: EMERGENCY PHYSICIAN Emergency Medicine
DX: D64.9 Anemia, unspecified (principal); F41.8 Other specified anxiety disorders; Z87.891 Personal history of nicotine dependence
CPT/HCPCS: 99283; 36430; 80048; 80053; 82728; 83540; 83550; 85025; 86300; 86850; 86900; 86901; 86920; P9016

== ENCOUNTER → 2023-09-08 11:33 | Outpatient (REF) | payer OTHER, SELFPAY ==
[2023-09-08 10:26] LABS: % Basophils 0.3 % (0-2); % Eosinophils 0.2 % (0-6); % Lymphocytes 4.6 % (20.5-51.1); % Monocytes 7.5 % (1.7-9.3); % Neutrophils 86.4 % (42.2-75.2); Absolute Immature Granulocytes 0.1 10^3/uL (0-0.05); Absolute Lymphocytes 0.4 10^3/uL (1.2-3.4); Absolute Monocytes 0.7 10^3/uL (0.1-0.6); Absolute Neutrophils 7.7 10^3/uL (1.4-6.5); Mean Corp Hgb Conc. 31.2 g/dL (33.0-37.0); Mean Corpuscular Hgb 28.8 pg (27.0-31.0); Mean Corpuscular Volume 92.2 fL (81.0-99.0); Mean Platelet Volume 10.9 fL (7.4-10.4); Platelet Count 115 10^3/uL (130-400); Red Blood Cell Count 1.53 10^6/uL (4.20-5.40); Red Cell Dist. Width 20.4 % (11.5-14.5)
[2023-09-08 10:32] LABS: Hematocrit 14.1 % (37.0-47.0); Hemoglobin 4.4 g/dL (12.0-16.0)
[2023-09-08 11:57] LABS: ALT (SGPT) 17 U/L (0-35); AST (SGOT) 70 U/L (14-36); Albumin 3.2 g/dl (3.5-5.0); Alkaline Phosphatase 108 U/L (38-126); Blood Urea Nitrogen 15 mg/dl (7-17); Calcium 8.2 mg/dl (8.4-10.2); Carbon Dioxide 19 mmol/L (22-30); Chloride 102 mmol/L (98-107); Glucose 154 mg/dl (70-99); Potassium 3.8 mmol/L (3.5-5.1); Sodium 130 mmol/L (135-145); Total Bilirubin 0.7 mg/dl (0.2-1.3); Total Protein 6.2 g/dl (6.3-8.2); eGFR > 60.00
[2023-09-11 01:54] LABS: CA 27-29 2227.1 U/mL (<=39.0)
== END ==
LOC: OIDL 11:33
PROVIDERS: ATTENDING PHYSICIAN Nurse Practitioner Adult Health
DX: C50.111 Malignant neoplasm of central portion of right female breast (principal)
CPT/HCPCS: 80053; 85025; 86300

== ENCOUNTER 2023-09-14 09:46 | Outpatient (RCR) | payer OTHER, SELFPAY ==
--- NOTE | 2023-09-14 10:15 | PTCARENOTE ---
Pt arrived to unit c/o weakness, back, and abdominal pain, as well as nausea. She ambulated to bathroom with assistance of 1 with cane. Pt vs taken were: 96.8, 97, 18, 111/65. Attempted x 1 to collect type and screen, unsuccessful. Pt stated she
felt nauseated, and wanted to go to the bathroom again. Another RN assisted pt back to from bathroom and noted pt to have a bright red bm in toilet. CYLINDER SANDER OPERATOR Gail out to see pt, notified charge nurse in ER via TT and phone call as well, pt taken to
ER via wheelchair. Handed off report to Alexandra in triage.
--- NOTE | 2023-09-14 10:15 | W.PN.UPDATE ---
Update Note
- Progress Note Update
09/14/23 1015
Patient seen in [facility] today for planned 2units of PRBC. Gracie D RN called patient this am to discuss with patient as she did not have t&c done thursday or over the weekend. On phone patient sounded weak and confused. Said she did not have
transportation but would try one more friend. Due to previous symptomatic anemia and known history of metastatic breast cancer to bone and bone marrow followed up with patient but was not answering phone and concern over wellbeing began. Wellness
check suggested by OID RN and being arranged when patient showed up in outpatient lab and was transported via wheelchair to [facility]. On assessment in D patient reported significant fatigue and nausea needing to use restroom. After use of restroom
bright red blood was noted in toilet. Patient also reports episode of hematemesis at home. Previous hemoglobin 4.4 on 09/07 and was transfused. More recent 7.1. Advised to go to ED for further evaluation. Per patient she also reports having
recent colon/endo but results were not reviewed per the patient it was normal. Sent to ER and TT sent and patient escorted to ER with the help of another RN with friend.
== END 2023-09-28 23:59 | disposition home or self-care (01) ==
LOC: OID 09:46
PROVIDERS: ATTENDING PHYSICIAN Internal Medicine Hematology & Oncology
DX: C50.111 Malignant neoplasm of central portion of right female breast (principal)
CPT/HCPCS: 36415

== ENCOUNTER 2023-09-14 14:47 | Inpatient (IN) | payer OTHER, SELFPAY ==
[2023-09-14] VITALS (18 sets, daily range): BP systolic 116–142; BP diastolic 58–88; PULSE 92–109; BMI 22.0; BMI 21.3
--- NOTE | 2023-09-14 11:10 | ED.GENMED ---
History of Present Illness
General
Chief Complaint: Abnormal Lab Value
Time Seen by Provider: 09/14/23 10:50
Travel History
Have you had any contact with someone who has COVID-19?: No
Do you have any symptoms of coronavirus? Fever > 100 degrees, chills, cough, shortness of breath, sore throat, loss of taste or smell, muscle aches, or headache?: No
History of Present Illness
History of Present Illness:
63-year-old female with history of metastatic breast cancer presents to the emergency department due to vomiting dark red blood beginning this morning. She went to the outpatient infusion center for blood transfusions and due to the complaint of
hematemesis was referred to the emergency department. She does report gradually worsening low back pain as well. No fevers or chills. Does not take any anticoagulants currently. Was last in this emergency department less than 1 week ago due to
symptomatic anemia with a hemoglobin of 4.4. Patient last had an endoscopy in late August that showed gastritis and biopsies were taken.
Past History
Past History
ED Past Medical History: Psychiatric (Anxiety and depression) and Other (Bone fractures)
ED Past Surgical History: None
Social History
Tobacco: Former smoker (Quit summer 2017)
Personal: Single
Living: alone
Employment: Not employed
Family History
Family History: Other
Review of Systems
Review of Systems
Allergies reviewed?: Yes
All Other Systems: ROS reviewed and negative except as documented in HPI and ROS
Phy Exam
Physical Exam
Physical Exam:
GEN: Ill-appearing, thin and frail
Eyes: PERRLA, EOMs intact, no scleral icterus
HENT: NCAT, oral mucosa moist
Lungs: CTAB, no wheezes, rales, rhonchi, normal chest wall excursion
Cardiac: RRR, no M/R/G, no peripheral edema. Radial pulses 2+ bilat
Abdomen: S, NT, ND, NABS, no masses or hepatosplenomegaly
Neuro: AO x 3
MSK: No gross deformity or ecchymosis. No edema. No digital clubbing
Skin: No rashes, petechiae. Generally pale
Psych: Calm, cooperative, proper hygiene
Course
Orders/Labs/Results
Orders:
Orders
09/14/23 Breakfast
Clear Liquid
At Your Request: Full Participation
Clear Liquids: No red liquids
09/14/23 11:09
Morphine Sulfate 2 mg IV NOW STA
Pantoprazole [Protonix IV] 80 mg IV NOW STA
09/14/23 11:33
Type+Screen Urgent
Complete Blood Count/With Diff Urgent
Comprehensive Metabolic Panel Urgent
LDH Urgent
Comment: ADD ON
Prothrombin Time Urgent
Urinalysis Reflex To Culture Urgent
Date Specimen was Collected: 09/14/23
Time Specimen was Collected: 11:16
Urine Creatinine Urgent
Date Specimen was Collected: 09/14/23
Time Specimen was Collected: 11:16
Comment: ADD ON
Urine Microscopic Reflex Cult Urgent
Urine Sodium Urgent
Date Specimen was Collected: 09/14/23
Time Specimen was Collected: 11:16
Comment: ADD ON
09/14/23 12:12
Blood Bank Products [* Blood Bank Products] Urgent
Blood Bank Products: *Packed RBC Leuko(PRBC's)
Quantity: 2
Transfuse Today: Yes
Reason: Anemia
09/14/23 12:15
Pantoprazole 80 mg/100 ml Nss [Protonix] 80 mg in 100 ml IV Q10H
09/14/23 13:38
GASTROINTESTINAL CONSULT Routine
Consulting Provider: Cristian Velazquez
Was physician already notified: Yes
09/14/23 13:43
Admit/Transfer Patient As Directed
Co-Sign Provider:
Level of Care: Inpatient admission
Assign to:: Telemetry
Physician / Group: Justine
Diagnosis: Anemia, GI Bleed
Reason for Telemetry: Arrhythmia
Date to Stop Telemetry: 09/17/23
Time to Stop Telemetry: 11:00
Reason for Hospitalization: PPI drip, Blood transfusion
Expected length of stay greater than two midnights?: Yes
ELOS- Estimated Length of Stay in days: 3
I certify the patient meets the requirements for IP care: Yes
09/14/23 13:45
Code Status As Directed
Resuscitation Status: Full Code
09/14/23 14:11
Bladder Scan As Directed
Follow Bladder Retention/Intermittent Cath Algorithm?: Yes
PRN if no void in __ hours: 6
Frequency: Per Retention Algorithm
If Bladder Scan Result >: 400
then:: Straight cath
09/14/23 14:12
Straight Cath As Directed
Frequency: Per Retention Algorithm
Additional Instructions: straight cath as needed per acute urinary retention algorithm for 24 hrs
Additional Instructions: for bladder scan greater than 400 mL
09/14/23 16:49
0.9% Sodium Chloride 1000 ml [Nss] 1,000 ml IV 80 mls/hr
Acetaminophen [Tylenol] 650 mg PO Q4HPRN PRN
Alprazolam [Xanax] 0.5 mg PO HSPRN PRN
09/14/23 16:49
ONCOLOGY CONSULT Routine
Consulting Provider: Jonathan Viveros
Was physician already notified: Yes
Activity As Directed
Activity Level: Out of Bed- Chair
I&O [Intake/ Output] As Directed
Frequency: q12h
Orthostatic Vital Signs As Directed
Orthostatic VS Frequency: BID
Pneumatic Compression Sleeves As Directed
Type: Knee high
Teds [Anti-embolism (MARIO) Hose] As Directed
Type: Knee high
Vital Signs As Directed
Frequency: Per unit guidelines
Weight As Directed
Frequency: Daily
Ot Eval And Treat Routine
Pt Eval And Treat Routine
Activity Level: Out of Bed-Early Mobility
DX Deep Vein Thrombosis Video Routine
09/14/23 17:10
Reticulocyte Count Routine
09/14/23 20:00
H&H Routine
09/14/23 22:00
Sertraline HCl [Zoloft] 100 mg PO HS
09/15/23 Breakfast
NPO
Allow oral meds: No
Allow clear liquids: 4hrs prior to procedure
NPO with Ice Chips: No
Comment: may have unrestricted clear liquid up to 4 hrs prior to scheduled procedure
Basic Metabolic Panel IN AM
Complete Blood Count/No Diff IN AM
09/15/23 08:00
Cyanocobalamin [Vitamin B-12] 1,000 mcg PO DAILY
Duloxetine Delayed Release [Cymbalta Delayed Release] 30 mg PO DAILY
Ferrous Sulfate [Feosol] 325 mg PO DAILY
Fluconazole [Diflucan] 200 mg PO DAILY
Polyethylene Glycol Powder [Miralax] 17 grams PO DAILY
09/17/23 11:00
DC Protocol for Telemetry ONCE
Abnormal Lab Results
09/14/23
11:33
RBC 2.06 L 10^6/uL
(4.20-5.40)
Hgb 6.0 L* D g/dL
(12.0-16.0)
Hct 19.0 L* %
(37.0-47.0)
MCHC 31.6 L g/dL
(33.0-37.0)
RDW 21.4 H %
(11.5-14.5)
Plt Count 108 L 10^3/uL
(130-400)
MPV 11.5 H fL
(7.4-10.4)
Abs Immat Gran (auto) 0.2 H 10^3/uL
(0-0.05)
Absolute Neuts (auto) 7.2 H 10^3/uL
(1.4-6.5)
Absolute Lymphs (auto) 0.4 L 10^3/uL
(1.2-3.4)
Immature Gran % 2.4 H %
(0-0.5)
Neutrophils % 87.6 H %
(42.2-75.2)
Lymphocytes % 4.8 L %
(20.5-51.1)
Sodium 131 L mmol/L
(135-145)
Carbon Dioxide 18 L mmol/L
(22-30)
BUN 33 H mg/dl
(7-17)
Creatinine 1.9 H mg/dL
(0.6-1.0)
Glucose 125 H mg/dl
(70-99)
AST 76 H U/L
(14-36)
Alkaline Phosphatase 128 H U/L
(38-126)
Lactate Dehydrogenase 299 H U/L
(120-246)
Total Protein 6.2 L g/dl
(6.3-8.2)
Albumin 3.2 L g/dl
(3.5-5.0)
Ur Occult Blood Reflex Trace A
(Negative)
Urine Bilirubin 1+ A
(Negative)
Leukocyte Esterase Rfl Trace A
(Negative)
Urine Bacteria (Reflex) Few A
(Negative)
Urine Sodium 9 L mmol/L
(30-90)
Urine Albumin (Reflex) 1+ A
(Neg - Trace)
Crossmatch IS Only See Detail
09/14/23 11:33
09/14/23 11:33
Vital Signs
Initial and Last Documented VS:
Initial Vital Signs
Pulse Resp BP Pulse Ox
101 20 135/75 100
09/14/23 10:40 04/08/24 10:40 09/14/23 10:40 09/14/23 10:40
Last Documented Vital Signs
Temp Pulse Resp BP Pulse Ox
97.6 F 94 17 116/68 100
09/14/23 18:04 09/14/23 18:04 09/14/23 18:04 09/14/23 18:04 09/14/23 17:06
MDM/Problems Addressed
MDM/Problems Addressed:
63-year-old female presenting with acute on chronic anemia, in addition to black and bloody emesis. She did report having some pink or red Gatorade this morning however she vomited once in the emergency department and was melanotic concerning for
brisk upper GI bleed. She did have an endoscopy 2 weeks ago with multiple biopsies and gastritis noted, could be recurrent bleeding from this. Patient started on PPI infusion, blood transfusions ordered due to critical anemia. Will admit to the
hospitalist service, gastroenterology made aware
*Critical Care Note
Total Time (30-74mins, 75-104mins- exclusive of procedures): 40 minutes
comment:
Critical care time: 40 minutes
Critical care time was exclusive of: Separately billable procedures, treating other patients, and teaching time
Critical care was necessary to treat or prevent imminent or life-threatening deterioration of the following conditions: Blood loss anemia
Critical care time spent personally by me on the following activities:
[x] Review of old charts
[x] Obtaining history from patient or surrogate
[x] Ordering and review of the laboratory studies
[ ] Ordering and review of radiographic studies
[x] Ordering and performing treatments and interventions
[x] Patient patient's response to treatment
[x] Development of treatment plan with patient or surrogate
ED Attending Note
-
Portions of this chart may have been created with voice recognition software.� Occasional wrong word or��sound alike� substitutions may have occurred due to the inherent limitations of voice recognition software.
Discharge Plan
Departure
Patient Disposition: Admit
Date of Disposition: 09/14/23
Time of Disposition: 12:37
Admit to: Med/Surg
Presentation/result/management discussed w/ accepting MD/DO: Hospitalist
Discharge Problem:
Acute upper GI bleed, Acute blood loss anemia
Interventions
Interventions:
*Risk Screen - Suicide Last Done: 09/14/23 13:37
*General Assessment Last Done: 09/14/23 13:37
*Neglect/Abuse Screening Last Done: 09/14/23 13:37
ED- Fall Risk Assessment Last Done: 09/14/23 11:03
*ED COVID-19 Vaccine History Last Done: 09/14/23 10:40
*Nursing Disposition Last Done: 09/14/23 18:10
Discharge Date and Time
Discharge Date/Time: 09/14/23 17:30
[2023-09-14] MEDS: MORPHINE SULFATE 2 MG IV (11:31)
[2023-09-14] MEDS: PROTONIX IV 80 MG IV (11:32)
[2023-09-14 11:59] LABS: % Basophils 0.5 % (0-2); % Eosinophils 0.4 % (0-6); % Immature Granulocytes 2.4 % (0-0.5); % Lymphocytes 4.8 % (20.5-51.1); % Monocytes 4.3 % (1.7-9.3); % Neutrophils 87.6 % (42.2-75.2); Absolute Immature Granulocytes 0.2 10^3/uL (0-0.05); Absolute Lymphocytes 0.4 10^3/uL (1.2-3.4); Absolute Monocytes 0.4 10^3/uL (0.1-0.6); Absolute Neutrophils 7.2 10^3/uL (1.4-6.5); Mean Corp Hgb Conc. 31.6 g/dL (33.0-37.0); Mean Corpuscular Hgb 29.1 pg (27.0-31.0); Mean Corpuscular Volume 92.2 fL (81.0-99.0); Mean Platelet Volume 11.5 fL (7.4-10.4); Nucleated Red Blood Cells % 0.4 %; Platelet Count 108 10^3/uL (130-400); Red Blood Cell Count 2.06 10^6/uL (4.20-5.40); Red Cell Dist. Width 21.4 % (11.5-14.5); White Blood Cell Count 8.2 10^3/uL (4.8-10.8)
[2023-09-14 12:04] LABS: Urine Albumin 1+ (Neg - Trace); Urine Bilirubin 1+ (Negative); Urine Character Clear (Clear); Urine Color Yellow; Urine Glucose Negative (Negative); Urine Ketone Negative (Negative); Urine Leukocyte Trace (Negative); Urine Nitrite Negative (Negative); Urine Occult Blood Trace (Negative); Urine Urobilinogen Negative (Neg - 1+)
[2023-09-14 12:10] LABS: INR 1.11; PT 14.1 Sec (11.4-14.6)
[2023-09-14 12:16] LABS: ALT (SGPT) 14 U/L (0-35); AST (SGOT) 76 U/L (14-36); Albumin 3.2 g/dl (3.5-5.0); Alkaline Phosphatase 128 U/L (38-126); Blood Urea Nitrogen 33 mg/dl (7-17); Calcium 8.7 mg/dl (8.4-10.2); Carbon Dioxide 18 mmol/L (22-30); Chloride 100 mmol/L (98-107); Estimated Creatinine Clearance 25 ml/min; Glucose 125 mg/dl (70-99); Sodium 131 mmol/L (135-145); Total Bilirubin 0.7 mg/dl (0.2-1.3); Total Protein 6.2 g/dl (6.3-8.2); eGFR 28.94
[2023-09-14 12:23] LABS: Urine Bacteria Few (Negative); Urine Red Blood Cell 0-2 /HPF (0-2)
[2023-09-14] MEDS: PROTONIX 100 IV (12:28)
[2023-09-14 12:32] LABS: Potassium 3.5 mmol/L (3.5-5.1)
--- NOTE | 2023-09-14 13:13 | CON.GI ---
Addendum entered and electronically signed by Cristian Velazquez MD 09/14/23 14:16:
Patient seen and examined, agree with nurse practitioner. Patient presents to the emergency room again with significant anemia. She was recently hospitalized with a hemoglobin of 4.4 and had EGD and colonoscopy at that time that was most
unremarkable, with candidiasis, gastritis status postbiopsy and tortuous colon. She now has recurrent significant anemia with hemoglobin of 6 with an MCV of 92.2. She has concurrent mild thrombocytopenia as well. There is a question of
hematemesis this morning though she states this was more blood-tinged Gatorade and not gross blood. She has not had a bowel meant in about 2 days and denies any melena or hematochezia. She denies any abdominal pain though does admit to some flank
pain that goes around to her back. She denies any extraneous NSAIDs now. On exam she has mild abdominal distention though no tenderness or rebound. At this point her anemia is likely multifactorial, hard to explain all of her anemia from bleeding
with lack of melena or hematochezia given the severity of her anemia, though did have some questionable hematemesis, possibly now acute small Magdalena-Harden tear or small ulcer. I discussed with Dr. Viveros, will plan transfusion today and
supportive care, okay for clears without any signs of brisk active bleeding, tentatively plan EGD tomorrow. She will be having imaging as well of her brain abdomen and pelvis.
Original Note:
Consultation
-
Date/Time Consultation Requested: 09/14/23 1300
Date/Time Consultation Performed: 09/14/23 1313
Requesting Provider: SAAD Vargas
Performing Provider: Dr. Velazquez/MARIAM Randolph
Reason for Consultation: anemia/UGIB
Medical History
Chief Complaint / HPI
Chief Complaint: back/flank pain
History of Present Illness:
63-year-old female with history of stage IV metastatic breast cancer to the bone with radiation to the spine since September [address] Gabriela Jacobson with history of bilateral mastectomy, right breast radiation/pelvic radiation, right-sided
breast lymph node resection, port insertion status post removal, anxiety, depression, hyperlipidemia, ADD on Zometa holiday with baseline hemoglobin in the 8 range. Seen by us 08/26/23 for Hgb of 4.4. At that time she was utilizing Ibuprofen. The
patient was transfused 2 units of packed red blood cells bringing her hemoglobin up to 8.4 at that time. She had an EGD/colonoscopy with no evidence of active bleeding. She did have rosales esophagitis and was Rx fluconazole. It was recommended
that she have an outpatient video capsule study which has not been performed as of yet. The patient states that her hemoglobin was 4 again as an outpatient. She received a transfusion in the emergency room and discharged back to home. she was then
told that her hemoglobin was low and was told to come to the emergency room. She states that she has been utilizing Tylenol as an outpatient for back pain. The patient does have history of a lobular soft tissue mass in the presacral/left adnexa
region. This has not been evaluated as of yet. Patient was supposed to be referred to [facility]Onc. Patient states her hemoglobin was low again and she was referred back to the emergency room. She states she has a history of chronic constipation.
Her last bowel movement was 2 days ago. This was soft and she describes as a 'Cow Plop' this was brown in color. She states her appetite is poor. She did not eat anything prior to arrival here. She did state that she had an episode of emesis
that was maroon in color. She denies any fevers, chills, melena, dysphagia or odynophagia. The patient has had no further episodes of vomiting. She denies any abdominal pain. WBC 8.8, hemoglobin 6.0 19.0, platelet count 108, PT 14.1, INR 1.11,
sodium 131, potassium 3.5, CO2 18, BUN 33, creatinine 1.9, glucose 125, Total bilirubin 0.7, AST 76, ALT 14, alk phos 128
Past Medical History
Past Medical History: Cancer (Breast CA), Hypercholesterolemia and Other (anxiety/depression, ADD)
Past Surgical History: Other (B/L mastectomy, right sided LN resection )
Social History
Tobacco: Non-Smoker
Alcohol: None
Drug: None
Personal: Single
Living: Alone
Family History
Family History: Other (Maternal Grandfather and Maternal uncle Colon Cancer)
Allergies / Home Medications
Allergy/AdvReac Type Severity Reaction Status Date / Time
bupropion [From Wellbutrin] Allergy Patient Verified 09/14/23 10:42
states she
lost a lot
of weight
on.
codeine Allergy 'makes her Verified 09/14/23 10:42
ill'
Iodinated Contrast Media Allergy THROAT SHUT Verified 09/14/23 10:42
�Medication �Instructions �Recorded
alprazolam 0.5 mg tablet 0.5 mg PO HSPRN PRN sleep/anxiety 09/08/23
cyanocobalamin (vitamin B-12) 1,000 mcg PO DAILY 09/08/23
1,000 mcg tablet
duloxetine 30 mg capsule,delayed 30 mg PO DAILY 09/08/23
release
ferrous sulfate 325 mg (65 mg 325 mg PO DAILY 09/08/23
iron) tablet (iron)
fluconazole 200 mg tablet 200 mg PO DAILY 09/08/23
gabapentin 300 mg capsule 300 mg PO TID PRN nerve pain 09/08/23
pantoprazole 40 mg tablet,delayed 40 mg PO DAILY 09/08/23
release
polyethylene glycol 3350 17 gram 17 g PO DAILY 09/08/23
oral powder packet (Miralax)
sertraline 100 mg tablet 100 mg PO HS 09/08/23
acetaminophen 325 mg tablet 650 mg PO Q4HPRN PRN mild pain 09/14/23
(Tylenol)
Review of Systems
-
All other systems: A 12 pt ROS was Negative except as stated above in HPI
Vital Signs
Pulse Resp BP Pulse Ox
97 20 132/81 100
09/14/23 12:15 09/14/23 12:15 09/14/23 12:01 09/14/23 10:40
Physical Exam
Exam
General: No Apparent Distress
HEENT: Anicteric
Respiratory: Clear
Cardiac: Regular Rhythm
GI: Soft, Non Tender, Non Distended and Normal Bowel Sounds
Skin: Warm and Dry
Neuro: AO x 3
Psych: Calm
Results
WBC 8.2 10^3/uL (4.8-10.8) 09/14/23 11:33
Hgb 6.0 g/dL (12.0-16.0) L* D 09/14/23 11:33
Hct 19.0 % (37.0-47.0) L* 09/14/23 11:33
MCV 92.2 fL (81.0-99.0) 09/14/23 11:33
Plt Count 108 10^3/uL (130-400) L 09/14/23 11:33
Absolute Neuts (auto) 7.2 10^3/uL (1.4-6.5) H 09/14/23 11:33
PT 14.1 Sec (11.4-14.6) 09/14/23 11:33
INR 1.11 09/14/23 11:33
Sodium 131 mmol/L (135-145) L 09/14/23 11:33
Potassium 3.5 mmol/L (3.5-5.1) 09/14/23 11:33
Chloride 100 mmol/L (98-107) 09/14/23 11:33
Carbon Dioxide 18 mmol/L (22-30) L 09/14/23 11:33
BUN 33 mg/dl (7-17) H 09/14/23 11:33
Creatinine 1.9 mg/dL (0.6-1.0) H 09/14/23 11:33
Calcium 8.7 mg/dl (8.4-10.2) 09/14/23 11:33
Total Bilirubin 0.7 mg/dl (0.2-1.3) 04/08/24 11:33
AST 76 U/L (14-36) H 09/14/23 11:33
ALT 14 U/L (0-35) 09/14/23 11:33
Alkaline Phosphatase 128 U/L (38-126) H 09/14/23 11:33
Diagnostic Image Results:
Prior GI Procedures:
EGD: 08/28/23 - Patchy, white plaques were found in the entire
esophagus. Biopsies were taken with a cold forceps r/o
candidiasis. (+ rosales esophagitis)
- Gastritis. Biopsied.
- Duodenal lipoma. Biopsied.
- Normal mucosa was found in the duodenal bulb and in
the second portion of the duodenum.
Colonoscopy: 08/28/23 - Preparation of the colon was fair.
- Tortuous colon.
-A few medium-mouthed diverticula were found in the
sigmoid colon.
- Internal hemorrhoids.
- No evidence of any active bleeding
Assessment / Plan
-
63-year-old female with history of stage IV metastatic breast cancer to the bone with radiation to the spine since September [address] Gabriela Jacobson with history of bilateral mastectomy, right breast radiation/pelvic radiation, right-sided
breast lymph node resection, port insertion status post removal, anxiety, depression, hyperlipidemia, ADD on Zometa holiday with baseline hemoglobin in the 8 range. Seen by us 08/26/23 for Hgb of 4.4. At that time she was utilizing Ibuprofen. The
patient was transfused 2 units of packed red blood cells bringing her hemoglobin up to 8.4 at that time. She had an EGD/colonoscopy with no evidence of active bleeding. She did have rosales esophagitis and was Rx fluconazole. It was recommended
that she have an outpatient video capsule study which has not been performed as of yet. Presents again to the emergency room with low hemoglobin, at this time 6.0. She was in the emergency room on 09/08/2023 with a hemoglobin of 4 and was transfused
and discharged home per patient request. Patient states that she feels constipated, bloated. She comes in with an QUINTON. She vomited which she states is maroon this morning. No episodes of this prior. Prior imaging CT in 08/2023 There is new
lobular soft tissue in the presacral region and left adnexa which is high-level suspicion for malignant involvement.The presacral component measures approximately 2.5 x 4.5 x 4.0 cm and is confluent with the lobular left adnexal component which
measures approximately 8 x 2 x 3 cm.There is associated left periureteral stranding with borderline left hydronephrosis as well as stranding in the left inguinal region.
Impression:
Anemia
Hematemesis x 1
Rosales Esophagitis
Constipation
QUINTON
Metastatic Breast Ca
2.5 x 4.5 x 4.0 cm and is confluent with the lobular left adnexal component which measures approximately 8 x 2 x 3 cm.There is associated left periureteral stranding with borderline left hydronephrosis as well as stranding in the left inguinal
region (08/2023)
Plan:
-NPO
-IVF
-Continue Protonix gtt
-Would recommend abdominal imaging to eval for hydro/obstruction given QUINTON and constipation
-Trend Hgb
-Transfuse to keep Hgb >7
-Will await imaging and repeat Hgb before decision on repeat EGD. Unless with signs of active bleeding.
-
-
Thank you for consultation and allowing me to participate in the patient's care. Please call the correspondence representative GI physician during the after hours with any questions or concerns.
--- NOTE | 2023-09-14 14:17 | W.PN.UPDATE ---
Update Note
Progress Note Update
For billing purposes.
--- NOTE | 2023-09-14 14:17 | HPS.HSE ---
Family Physician
-
Family Physician: * NONE
Chief Complaint
-
Anemia
History of Present Illness
Patient is a 63 y/o female with a past medical history of metastatic breast cancer, anemia, cauda equina, and left pelvic mass who presents for low hemoglobin, worsening left flank pain, and chronic weakness, lethargy, and low back pain. She states
that she was sent from the hematology office this morning for low hemoglobin. Patient was seen here in the ED on September 07 for a Hgb of 4.4. At that time she received 2 units PRBCs and was discharged home as she did not want to stay in the
hospital. Upon arriving at the emergency department today, she vomited dark red liquid. She admits to drinking pink Gatorade this morning. She denies other recent episodes of vomiting or rectal bleeding. She has been chronically constipated and
states that her last bowel movement was yesterday. She admits that her stools have been dark in color but denies recent black stool. Additionally, she complains of worsening left flank pain. She was found to have a new presacral mass with associated
mild left hydro by CT scan a few weeks ago. She admits to chronic urinary incontinence but denies dark urine or change in urinary habits. She denies shortness of breath, chest pain, palpitations or dizziness.
Medical History
Past Medical History
Past Medical History: Reports Other
Additional Past Medical History:
Metastatic Breast Cancer
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
Anxiety / Depression
Past Surgical History: Reports Other
Additional Past Surgical History:
Bilateral Mastectomy
Social History
Tobacco: Former Smoker
Alcohol: None (Previously drinking 2 martinis nightly, but none for past few months)
Family History
Family History: Not pertinent
Allergies / Home Medications
Allergies reflects when Allergies were last updated in [email or web address].
Home Medications with original date entered in [email or web address]
Allergy/Medication List:
Allergies
Allergy/AdvReac Type Severity Reaction Status Date / Time
bupropion [From Wellbutrin] Allergy Patient Verified 09/14/23 10:42
states she
lost a lot
of weight
on.
codeine Allergy 'makes her Verified 09/14/23 10:42
ill'
Iodinated Contrast Media Allergy THROAT SHUT Verified 09/14/23 10:42
Home Medications
alprazolam 0.5 mg tablet 0.5 mg PO HSPRN PRN sleep/anxiety 09/08/23
cyanocobalamin (vitamin B-12) 1,000 mcg tablet 1,000 mcg PO DAILY 09/08/23
duloxetine 30 mg capsule,delayed release 30 mg PO DAILY 09/08/23
ferrous sulfate 325 mg (65 mg iron) tablet (iron) 325 mg PO DAILY 09/08/23
fluconazole 200 mg tablet 200 mg PO DAILY 09/08/23
gabapentin 300 mg capsule 300 mg PO TID PRN nerve pain 09/08/23
pantoprazole 40 mg tablet,delayed release 40 mg PO DAILY 09/08/23
polyethylene glycol 3350 17 gram oral powder packet (Miralax) 17 g PO DAILY 09/08/23
sertraline 100 mg tablet 100 mg PO HS 09/08/23
acetaminophen 325 mg tablet (Tylenol) 650 mg PO Q4HPRN PRN mild pain 09/14/23
Review of Systems
-
A 12 point ROS was completed and negative except as noted: Yes
Constitutional: Denies Fever or Chills
Respiratory: Denies Cough or Trouble Breathing
Cardiac: Denies Chest Pain or Palpitations
Abdomen/GI: Reports See HPI
Neurological: Reports Other (Confusion, Difficulty with Memory)
Physical Exam
Vital Signs
Vital Signs
Temp Pulse Resp BP Pulse Ox
97.5 F 94 15 142/88 100
09/14/23 13:47 09/14/23 13:47 09/14/23 13:47 09/14/23 13:47 09/14/23 10:40
Physical Exam
General: Comfortable, Conversant and Other (Appears Pale)
HEENT: NormoCephalic, Anicteric and Atraumatic
Respiratory: Clear and Non Labored Respirations
Cardiac: S1/S2 and Regular Rhythm
GI: Soft, Non Tender and Non Distended
Rectal: Deferred by Provider
Musculoskeletal: No Clubbing, No Cyanosis and No Edema
Skin: Warm and Dry
Neuro: Awake, Alert and Nonfocal/grossly intact
Psych: Calm
Laboratory Results
-
09/14/23 11:33
Laboratory Results
PT 14.1 Sec (11.4-14.6) 09/14/23 11:33
INR 1.11 09/14/23 11:33
Total Bilirubin 0.7 mg/dl (0.2-1.3) 09/14/23 11:33
AST 76 U/L (14-36) H 09/14/23 11:33
ALT 14 U/L (0-35) 09/14/23 11:33
Alkaline Phosphatase 128 U/L (38-126) H 09/14/23 11:33
Data Reviewed
-
Lab Data: Labs Reviewed by me
Old Records: Reviewed
Impression/Plan
-
Acute on Chronic Anemia
-Transfuse 2 units PRBCs
-Trend Hgb
Suspected GI Bleed
-Consult GI
-Allow clear liquids then NPO after midnight for EGD tomorrow
Acute Kidney Injury
-Prior imaging showed some left hydronephrosis related presacral mass
-Continue IVFs
-Monitor bladder scans
-Plan for CT scan to re-evaluate for worsening hydronephrosis
-Consider Urology consult based on CT results
Recent Candidiasis Esophagitis
-Continue Fluconazole - Last Day September 17
Metastatic Breast Cancer with new Presacral Soft Tissue Mass
-Consult Hematology
-Plan for Brain MRI to evaluate for possible brain mets in setting of increased confusion and memory difficulty
Anxiety/Depression
-Continue alprazolam, duloxetine and sertraline
DVT proph: SCDs
Code Status: Full Code
--- NOTE | 2023-09-14 14:29 | CON.ONC ---
Impression
Impression
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
Cauda equina syndrome due to cancer, status post radiation therapy
Severe anemia, questionable GI bleed
Plan
Plan
Agree with current plans. Transfusion. Possible endoscopy in the morning. Recent studies do not suggest iron or B12 deficiency. Hemolysis seems unlikely, but I will check appropriate studies. Possible anemia due to bone marrow replacement by
tumor, although I would expect her to be more thrombocytopenic. Further management of her breast cancer will occur as an outpatient.
Patient History
History of Present Illness
Consult from Laura Gupta regarding breast cancer
This 63-year-old woman is admitted with progressive fatigue and anemia. She has been under our care now for 3 to 4 years with a breast cancer that ultimately metastasized to her bones. She has been on various systemic therapies. Her markers are
estrogen receptor positive and HER2 negative. She has not been on any treatment now for the past 2 months. She was due to have a Port-A-Cath placed for further systemic therapy. She was noted to have a hemoglobin of 4.4 g a couple of weeks ago
and was transfused, she refused admission. She did undergo both upper and lower endoscopies, without any obvious bleeding sites. She phoned the office this morning with severe fatigue, and her hemoglobin is 6.6. She vomited a small amount of
reddish fluid yesterday. She has not noted any melena. She denies any pains. Of note, CT scan done about 3 weeks ago shows a large retroperitoneal and possibly pelvic mass. She is noticing some back pain, but it does not seem severe at this
point.
Patient Medication
�Medication �Instructions �Recorded �Confirmed �Last Taken �Type
alprazolam 0.5 mg tablet 0.5 mg PO HSPRN PRN sleep/anxiety 09/08/23 09/14/23 1 Week Ago History
~09/01/23
cyanocobalamin (vitamin B-12) 1,000 mcg PO DAILY 09/08/23 09/14/23 09/07/23 History
1,000 mcg tablet
duloxetine 30 mg capsule,delayed 30 mg PO DAILY 09/08/23 09/14/23 09/14/23 History
release
ferrous sulfate 325 mg (65 mg 325 mg PO DAILY 09/08/23 09/14/23 09/07/23 History
iron) tablet (iron)
fluconazole 200 mg tablet 200 mg PO DAILY 09/08/23 09/14/23 09/08/23 History
gabapentin 300 mg capsule 300 mg PO TID PRN nerve pain 09/08/23 09/14/23 09/08/23 History
pantoprazole 40 mg tablet,delayed 40 mg PO DAILY 09/08/23 09/14/23 09/08/23 History
release
polyethylene glycol 3350 17 gram 17 g PO DAILY 09/08/23 09/14/23 09/14/23 History
oral powder packet (Miralax)
sertraline 100 mg tablet 100 mg PO HS 09/08/23 09/14/23 09/07/23 History
acetaminophen 325 mg tablet 650 mg PO Q4HPRN PRN mild pain 09/14/23 09/14/23 09/14/23 History
(Tylenol)
Active Medications
Generic Name Dose Route Start Last Admin
Trade Name Freq PRN Reason Stop Dose Admin
Pantoprazole Sodium 80 mg in 100 mls @ 10 mls/hr 09/14/23 12:15 09/14/23 12:28
Protonix IV 100 mls
Q10H GEN Administration
8 MG/HR
Review of Systems
-
All Other Systems: Reviewed and Negative
Physical Exam
-
Physical examination shows the patient to be in no acute distress.
HEENT exam is unremarkable.
There are no palpable nodes.
Chest is clear.
The heart is regular with no murmur or gallop.
The abdomen is soft and nontender with no organomegaly or masses.
Extremities are unremarkable.
Neurologic is grossly intact.
Labs
Lab Results
WBC 8.2 10^3/uL (4.8-10.8) 09/14/23 11:33
RBC 2.06 10^6/uL (4.20-5.40) L 09/14/23 11:33
Hgb 6.0 g/dL (12.0-16.0) L* D 09/14/23 11:33
Hct 19.0 % (37.0-47.0) L* 09/14/23 11:33
MCV 92.2 fL (81.0-99.0) 09/14/23 11:
MCH 29.1 pg (27.0-31.0) 09/14/23 11:
MCHC 31.6 g/dL (33.0-37.0) L 09/14/23 11:33
RDW 21.4 % (11.5-14.5) H 09/14/23 11:33
Plt Count 108 10^3/uL (130-400) L 09/14/23 11:33
MPV 11.5 fL (7.4-10.4) H 09/14/23 11:33
Abs Immat Gran (auto) 0.2 10^3/uL (0-0.05) H 09/14/23 11:33
Absolute Neuts (auto) 7.2 10^3/uL (1.4-6.5) H 09/14/23 11:33
Absolute Lymphs (auto) 0.4 10^3/uL (1.2-3.4) L 09/14/23 11:33
Absolute Monos (auto) 0.4 10^3/uL (0.1-0.6) 09/14/23 11:33
Absolute Eos (auto) 0.0 10^3/uL (0-0.7) 09/14/23 11:33
Absolute Basos (auto) 0.0 10^3/uL (0-0.2) 09/14/23 11:33
Immature Gran % 2.4 % (0-0.5) H 09/14/23 11:33
Neutrophils % 87.6 % (42.2-75.2) H 09/14/23 11:33
Lymphocytes % 4.8 % (20.5-51.1) L 09/14/23 11:33
Monocytes % 4.3 % (1.7-9.3) 09/14/23 11:33
Eosinophils % 0.4 % (0-6) 09/14/23 11:33
Basophils % 0.5 % (0-2) 09/14/23 11:33
Creatinine 1.9 mg/dL (0.6-1.0) H 09/14/23 11:33
Vital Signs
Vital Signs
Temp Pulse Resp BP Pulse Ox
97.5 F 94 15 142/88 100
09/14/23 13:47 09/14/23 13:47 09/14/23 13:47 09/14/23 13:47 09/14/23 10:40
--- NOTE | 2023-09-14 14:48 | W.PN.UPDATE ---
Update Note
Progress Note Update
I saw and examined the patient.
The CHEMICAL ANALYTICAL SAMPLER's note was reviewed and I agree with the note.
Comment:
63 yo female past medical history of cancer presented from [facility] as with hematemesis. Denies abdominal pain but states of back pain. Had recent hospitalization where she underwent EGD and colonoscopy. During endoscopy White plaques were
noted. Video capsule endoscopy was recommended as outpatient. Patient also complaining of lower back pain. At times patient seems to forget her medical history for the past
General: Comfortable, Conversant and Other (Appears Pale)
HEENT: NormoCephalic, Anicteric and Atraumatic
Respiratory: Clear and Non Labored Respirations
Cardiac: S1/S2 and Regular Rhythm
GI: Soft, Non Tender and Non Distended
Rectal: Deferred by Provider
Musculoskeletal: No Clubbing, No Cyanosis and No Edema
Skin: Warm and Dry
Neuro: Awake, Alert and Nonfocal/grossly intact
Psych: Calm
Impression
Severe symptomatic anemia likely secondary to gastrointestinal bleeding
History of anemia
History of metastatic breast cancer
Anxiety/depression
Esophageal candidiasis
Plan
clears
PPI drip
Start IV fluids after blood transfusion
Trend H&H
Plan for endoscopy in the morning
GI evaluation
Will need further imaging studies of CT abdomen pelvis and MRI of the brain tomorrow postprocedure patient says she wants to rest today
Continue fluconazole
DVT prophylaxis resulting in GI bleed
Discussed with gastroenterology
Discussed with patient friend Saida at bedside
Discussed with oncology
I spent a total of 78 minutes with the patient or on the floor. More than 50% of this time involved counseling and coordination of care.
[2023-09-14 15:10] LABS: LDH 299 U/L (120-246)
[2023-09-14 17:18] LABS: Reticulocyte Count 5.8 % (0.4-2.8)
[2023-09-14 17:54] LABS: Urine Sodium 9 mmol/L (30-90)
[2023-09-14] MEDS: NSS 1000 IV (18:30)
[2023-09-14] MEDS: MORPHINE SULFATE 1 MG IV (20:14)
[2023-09-14] MEDS: ZOLOFT PO (21:40)
[2023-09-14 22:16] LABS: Hematocrit 29.9 % (37.0-47.0)
[2023-09-14 22:18] LABS: Hemoglobin 10.1 g/dL (12.0-16.0)
[2023-09-15] VITALS (10 sets, daily range): BP systolic 110–132; BP diastolic 70–98; BMI 21.4
--- NOTE | 2023-09-15 | PTCARENOTE ---
At 1950, patient stated that she thought her legs looked red when blood transfusion ended. Patient declined having shortness of breath, chest pressure, and itching. Legs did not appear red to RN. Vital signs stable. Sadie Wayne NP made aware.
[2023-09-15] MEDS: PROTONIX 100 IV ×3 (01:41→15:13)
[2023-09-15] MEDS: COMPAZINE 5 MG IV (04:59)
[2023-09-15] MEDS: NSS 1000 IV (04:59)
--- NOTE | 2023-09-15 06:42 | PTCARENOTE ---
Patient complained of nausea and vomiting. Patient noted to have a small amount of brown vomit in basin. Padmini Wayne TELETYPEWRITER OPERATOR notified. Compazine ordered, see MAR.
[2023-09-15 07:27] LABS: Hematocrit 30.7 % (37.0-47.0); Hemoglobin 10.1 g/dL (12.0-16.0); Mean Corp Hgb Conc. 32.9 g/dL (33.0-37.0); Mean Corpuscular Hgb 28.1 pg (27.0-31.0); Mean Corpuscular Volume 85.5 fL (81.0-99.0); Mean Platelet Volume 10.8 fL (7.4-10.4); Platelet Count 81 10^3/uL (130-400); Red Blood Cell Count 3.59 10^6/uL (4.20-5.40); Red Cell Dist. Width 21.7 % (11.5-14.5); White Blood Cell Count 8.9 10^3/uL (4.8-10.8)
[2023-09-15 07:56] LABS: Blood Urea Nitrogen 38 mg/dl (7-17); Calcium 7.7 mg/dl (8.4-10.2); Carbon Dioxide 13 mmol/L (22-30); Chloride 107 mmol/L (98-107); Estimated Creatinine Clearance 19 ml/min; Glucose 97 mg/dl (70-99); Potassium 3.9 mmol/L (3.5-5.1); Sodium 131 mmol/L (135-145); eGFR 20.82
--- NOTE | 2023-09-15 08:53 | CON.ONC ---
Impression
Impression
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
Cauda equina syndrome due to cancer, status post radiation therapy
Severe anemia, questionable GI bleed
Plan
Plan
Agree with current plans. Transfusion. Possible endoscopy in the morning. Recent studies do not suggest iron or B12 deficiency. Hemolysis seems unlikely, but I will check appropriate studies. Possible anemia due to bone marrow replacement by
tumor, although I would expect her to be more thrombocytopenic. Further management of her breast cancer will occur as an outpatient.
Patient History
History of Present Illness
Maria Luisa Carmona is a 63 year old female well-known to Dr. Jacobson with [facility] for history of metastatic right breast cancer. She has been doing poorly for quite a while due to psychosocial barriers regarding transportation, finances, and lack of
support system. She called the office 09/08 with reports of urinary and fecal incontinence, lower back pain
Patient Medication
�Medication �Instructions �Recorded �Confirmed �Last Taken �Type
alprazolam 0.5 mg tablet 0.5 mg PO HSPRN PRN sleep/anxiety 09/08/23 09/14/23 1 Week Ago History
~09/01/23
cyanocobalamin (vitamin B-12) 1,000 mcg PO DAILY 09/08/23 09/14/23 09/07/23 History
1,000 mcg tablet
duloxetine 30 mg capsule,delayed 30 mg PO DAILY 09/08/23 09/14/23 09/14/23 History
release
ferrous sulfate 325 mg (65 mg 325 mg PO DAILY 09/08/23 09/14/23 09/07/23 History
iron) tablet (iron)
fluconazole 200 mg tablet 200 mg PO DAILY 09/08/23 09/14/23 09/08/23 History
gabapentin 300 mg capsule 300 mg PO TID PRN nerve pain 09/08/23 09/14/23 09/08/23 History
pantoprazole 40 mg tablet,delayed 40 mg PO DAILY 09/08/23 09/14/23 09/08/23 History
release
polyethylene glycol 3350 17 gram 17 g PO DAILY 09/08/23 09/14/23 09/14/23 History
oral powder packet (Miralax)
sertraline 100 mg tablet 100 mg PO HS 09/08/23 09/14/23 09/07/23 History
acetaminophen 325 mg tablet 650 mg PO Q4HPRN PRN mild pain 09/14/23 09/14/23 09/14/23 History
(Tylenol)
Active Medications
Generic Name Dose Route Start Last Admin
Trade Name Freq PRN Reason Stop Dose Admin
Acetaminophen 650 mg 09/14/23 16:49
Acetaminophen 325 Mg Tablet PO 10/12/23 16:48
Q4HPRN PRN
mild pain
Alprazolam 0.5 mg 09/14/23 16:49
Alprazolam 0.5 Mg Tablet PO 10/12/23 16:48
HSPRN PRN
sleep/anxiety
Cyanocobalamin 1,000 mcg 09/15/23 08:00
Cyanocobalamin 1,000 Mcg Tablet PO 10/13/23 07:59
DAILY GEN
Duloxetine HCl 30 mg 09/15/23 08:00
Duloxetine Delayed Release 30 Mg Capsule PO 10/13/23 07:59
DAILY GEN
Ferrous Sulfate 325 mg 09/15/23 08:00
Ferrous Sulfate 325 Mg Tablet PO 10/13/23 07:59
DAILY GEN
Fluconazole 200 mg 09/15/23 08:00
Fluconazole 200 Mg Tablet PO 09/18/23 08:01
DAILY GEN
Pantoprazole Sodium 80 mg in 100 mls @ 10 mls/hr 09/14/23 12:15 09/15/23 01:41
Protonix IV 100 mls
Q10H GEN Administration
8 MG/HR
Sodium Bicarbonate 150 meq/ 1,150 mls @ 80 mls/hr 09/15/23 08:15
Sterile Water IV 09/16/23 08:14
.[id number] GEN
Morphine Sulfate 1 mg 09/14/23 18:16 09/14/23 20:14
Morphine 2 Mg/Ml Syringe IV 09/28/23 18:15 1 mg
Q4HPRN PRN Administration
mod pain
Morphine Sulfate 2 mg 09/14/23 18:16
Morphine 2 Mg/Ml Syringe IV 09/28/23 18:15
Q4HPRN PRN
severe pain
Polyethylene Glycol 17 grams 09/15/23 08:00
Polyethylene Glycol Powder 17 Grams Packet PO 10/13/23 07:59
DAILY GEN
Prochlorperazine Edisylate 5 mg 09/15/23 04:49 09/15/23 04:59
Prochlorperazine 10 Mg/2 Ml Vial IV 10/13/23 04:48 5 mg
Q6HPRN PRN Administration
n/v
Sertraline HCl 100 mg 09/14/23 22:00 09/14/23 21:40
Sertraline 100 Mg Tablet PO 10/12/23 21:59 Not Given
HS GEN
Sodium Chloride 0 flush 09/14/23 18:00
Sodium Chloride 0.9% (Flush) Syringe IV 10/12/23 17:59
PER PROTOCOL GEN
Physical Exam
Labs
Lab Results
WBC 8.9 10^3/uL (4.8-10.8) 09/15/23 07:01
RBC 3.59 10^6/uL (4.20-5.40) L 09/15/23 07:01
Hgb 10.1 g/dL (12.0-16.0) L 09/15/23 07:01
Hct 30.7 % (37.0-47.0) L 09/15/23 07:01
MCV 85.5 fL (81.0-99.0) 09/15/23 07:01
MCH 28.1 pg (27.0-31.0) 09/15/23 07:01
MCHC 32.9 g/dL (33.0-37.0) L 09/15/23 07:01
RDW 21.7 % (11.5-14.5) H 09/15/23 07:01
Plt Count 81 10^3/uL (130-400) L D 09/15/23 07:01
MPV 10.8 fL (7.4-10.4) H 09/15/23 07:01
Abs Immat Gran (auto) 0.2 10^3/uL (0-0.05) H 09/14/23 11:33
Absolute Neuts (auto) 7.2 10^3/uL (1.4-6.5) H 09/14/23 11:33
Absolute Lymphs (auto) 0.4 10^3/uL (1.2-3.4) L 09/14/23 11:33
Absolute Monos (auto) 0.4 10^3/uL (0.1-0.6) 09/14/23 11:33
Absolute Eos (auto) 0.0 10^3/uL (0-0.7) 09/14/23 11:33
Absolute Basos (auto) 0.0 10^3/uL (0-0.2) 09/14/23 11:33
Immature Gran % 2.4 % (0-0.5) H 09/14/23 11:33
Neutrophils % 87.6 % (42.2-75.2) H 09/14/23 11:33
Lymphocytes % 4.8 % (20.5-51.1) L 09/14/23 11:33
Monocytes % 4.3 % (1.7-9.3) 09/14/23 11:33
Eosinophils % 0.4 % (0-6) 09/14/23 11:33
Basophils % 0.5 % (0-2) 09/14/23 11:33
Creatinine 2.5 mg/dL (0.6-1.0) H 09/15/23 07:01
Vital Signs
Vital Signs
Temp Pulse Resp BP Pulse Ox
97.8 F 90 18 124/74 100
09/15/23 07:30 09/15/23 07:30 09/15/23 07:30 09/15/23 07:30 09/15/23 07:30
--- NOTE | 2023-09-15 09:17 | W.PN.ONC ---
Today's Communication / Plan
-
49 Hgb 10.1, Hct 30.7, PLT 81
s/p 2units PRBCs
Monitor CBC w/ diff daily, serial H/H
Transfuse as needed to maintain Hgb >7, PLT >20 (or >50 with active bleeding)
EGD today per GI
Possible anemia due to bone marrow replacement by tumor. Further management of her breast cancer will occur as an outpatient. [facility] office has been updated of patient's admission. She was scheduled to begin Taxol today.
Impression
Impression
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
Cauda equina syndrome due to cancer, status post radiation therapy
Severe anemia, questionable GI bleed
Hematemesis x1 episode
New right adnexa lesion on imaging (2023)
Progressive urinary incontinence
Esophageal candidiasis
Acute kidney injury (baseline 0.4-0.6)
Hypocalcemia
Hyponatremia
Subjective/Objective
Subjective/Objective
Vital Signs:
Vital Signs
Temp Pulse Resp BP Pulse Ox
97.8 F 90 18 124/74 100
09/15/23 07:30 09/15/23 07:30 09/15/23 07:30 09/15/23 07:30 09/15/23 07:30
Lab Results:
Laboratory Data
WBC 8.9 10^3/uL (4.8-10.8) 09/15/23 07:01
Hgb 10.1 g/dL (12.0-16.0) L 09/15/23 07:01
Plt Count 81 10^3/uL (130-400) L D 09/15/23 07:01
PT 14.1 Sec (11.4-14.6) 09/14/23 11:33
INR 1.11 09/14/23 11:33
eGFR 20.82 09/15/23 07:01
[2023-09-15] MEDS: SODIUM BICARBONATE 1150 MEQ IV (10:10)
--- NOTE | 2023-09-15 10:10 | W.PN.UPDATE ---
Update Note
Progress Note Update
for billing purposes - EGD complete (see note for details)
--- NOTE | 2023-09-15 10:12 | W.PN.HOSP.TC ---
Addendum entered and electronically signed by Laron Fletcher MD 09/15/23 13:37:
Received checks per RN ,patient adamant about not doing any further testing for today and refusing to go down for CT abdomen pelvis and CT head.
Plan to try again tomorrow.
Original Note:
Today's Communication/Plan
-
Plan for abdominal imaging if patient agreeable
Started on LR diet
Start bicarbonate drip
Trend creatinine
Assessment / Plan
Assessment / Plan
Acute on Chronic Anemia likely secondary to upper GI bleed in setting of thrombocytopenia
-Hemoglobin 10.1. Status post units of PRBC so far.
-Trend Hgb
-Status post endoscopy showing normal esophagus. Right foot retained and removed. Mucosal changes suspicious for gastritis with hemorrhage. Concern for metastatic disease? Biopsied. Status post treatment with APC.
-Started on low residue diet
-GI recs. Remains on PPI drip
Bicytopenia (anemia thrombocytopenia) likely secondary to chemotherapy
-Transfuse for hemoglobin less than 7.
-Trend CBC daily. Reticulocyte count elevated likely in the setting of severe anemia
Acute Kidney Injury likely prerenal in the setting of blood loss anemia versus renal versus postrenal
Severe metabolic acidosis
Chronic hyponatremia
-Prior imaging showed some left hydronephrosis related presacral mass
-Monitor bladder scans
-Plan for CT scan to re-evaluate for worsening hydronephrosis
-Check urine studies
-Start patient on bicarbonate drip
-Bladder scan protocol
Transaminitis likely secondary to chemotherapy
-Trend for now
Recent Candidiasis Esophagitis
-Continue Fluconazole - Last Day September 17
Metastatic Breast Cancer with new Presacral Soft Tissue Mass
-Consult Hematology
-Follows with Dr. Jacobson
Anxiety/Depression
-Continue alprazolam, duloxetine and sertraline
DVT proph: SCDs
Code Status: Full Code
Anticipated Discharge: > 48 hours
Subjective/Interval History
-
Date of Service: September 15, 2023
Hemoglobin improved status posttransfusion
Objective Data
-
Labs:
Laboratory Results
09/14/23 09/15/23
22:13 07:01
WBC 8.9
Hgb 10.1 L D 10.1 L
Hct 29.9 L 30.7 L
Plt Count 81 L D
Sodium 131 L
Potassium 3.9
Chloride 107
Carbon Dioxide 13 L*
BUN 38 H
Creatinine 2.5 H
Glucose 97
Calcium 7.7 L
Vital Signs:
Vital Signs
Temp Pulse Resp BP Pulse Ox
97.8 F 90 18 124/74 100
09/15/23 07:30 09/15/23 07:30 09/15/23 07:30 09/15/23 07:30 09/15/23 07:30
I&O
09/14/23 09/15/23 09/16/23
06:59 06:59 06:59
Intake Total 500 / 500
Balance 500 / 500
Physical Exam
-
General: Well Developed and No Apparent Distress
HEENT: Normocephalic, Atraumatic and Moist Mucous Membranes
Respiratory: Clear to Auscultation
Cardiac: Regular Rhythm and S1/S2; Negative Murmur, Rub or Gallop
GI: Soft, Nontender, Nondistended and Normal Bowel Sounds; Negative Organomegaly
Rectal: Deferred by Provider
Musculoskeletal: No Clubbing, No Cyanosis and No Edema
Skin: Negative Rash
Neuro: Awake and Nonfocal/Grossly Intact
Psych: Calm
Data Reviewed
-
Total Time Spent with Patient (in minutes): 58
[2023-09-15 10:16] LABS: Glucose - Point of Care 94 mg/dl (70-99)
[2023-09-15] MEDS: SUBLIMAZE 50 MCG IV (10:48)
[2023-09-15] MEDS: CYMBALTA DELAYED RELEASE 30 MG PO (11:22)
[2023-09-15] MEDS: DIFLUCAN 200 MG PO (11:22)
[2023-09-15] MEDS: VITAMIN B-12 1000 MCG PO (11:22)
[2023-09-15] MEDS: FEOSOL 325 MG PO (11:23)
[2023-09-15] MEDS: MIRALAX 17 GRAMS PO (11:26)
[2023-09-15] MEDS: SODIUM BICARBONATE 650 MG PO ×3 (13:18→21:34)
--- NOTE | 2023-09-15 14:00 | PTCARENOTE ---
Patient refused to go for CT scan. Provider notified.
--- NOTE | 2023-09-15 14:33 | W.PN.ONC ---
Addendum entered and electronically signed by Gabriela Jacobson MD 09/15/23 16:35:
Patient would benefit from a hospital bed at home after discharge.
Because of significant pain from metastatic breast cancer, spread to bones, she needs to position in certain ways not feasible with an ordinary bed. In addition, she requires frequent changes in position to maintain some degree of comfort, and to
prevent skin breakdown and pressure sores.
Original Note:
Today's Communication / Plan
-
Continue IV ppi, monitor CBC
Await EGD biopsies
IVF, monitor kidney function. Avoid NSAIDs, CT contrast dye
Will plan to begin taxane chemotherapy once acute issues improve, hopefully next week
Outpatient port placement
Impression
Impression
metastatic breast cancer
pain from bone mets
anemia - gastritis/bleeding noted on EGD
chronic thrombocytopenia, suspected ITP
QUINTON
Plan
Plan
Continue IV ppi, monitor CBC
Await EGD biopsies
IVF, monitor kidney function. Avoid NSAIDs, CT contrast dye
Will plan to begin taxane chemotherapy once acute issues improve, hopefully next week
Outpatient port placement
Subjective/Objective
Subjective/Objective
EGD this am showed severe inflammation and hemorrhage in the stomach. Injected with epi and fulgurated to stop bleeding. Started on IV PPI.
c/o continued low back pain
Vital Signs:
Vital Signs
Temp Pulse Resp BP Pulse Ox
97.6 F 90 18 120/70 100
09/15/23 11:15 09/15/23 11:15 09/15/23 11:15 09/15/23 11:15 09/15/23 11:15
Lab Results:
Laboratory Data
WBC 8.9 10^3/uL (4.8-10.8) 09/15/23 07:01
Hgb 10.1 g/dL (12.0-16.0) L 09/15/23 07:01
Plt Count 81 10^3/uL (130-400) L D 09/15/23 07:01
PT 14.1 Sec (11.4-14.6) 09/14/23 11:33
INR 1.11 09/14/23 11:33
eGFR 20.82 09/15/23 07:01
[2023-09-15] MEDS: DILAUDID 0.5 MG IV ×2 (16:01→20:38)
--- NOTE | 2023-09-15 16:53 | CM ---
power plant operations manager reviewed patient's chart and met with patient and patient lives alone in a 2nd floor condo, patient is independent with adl's and uses a cane with ambulation. Patient states she has no family only an ex boyfriend and his who help
her. Patient is looking for a hospital bed, and criteria for hospital documented by physician on chart, financial systems manager will locate a DME company in network with patient insurance.
Pharmacy; [facility]
Plan; Home when stable, patient needs hospital bed.
[2023-09-15] MEDS: ZOLOFT PO (21:35)
[2023-09-15] MEDS: TYLENOL 650 MG PO (23:07)
[2023-09-16] VITALS (8 sets, daily range): BP systolic 95–140; BP diastolic 63–77; PULSE 108–118; BMI 22.4
[2023-09-16] MEDS: DILAUDID 0.5 MG IV ×4 (00:43→18:19)
[2023-09-16] MEDS: SODIUM BICARBONATE 1150 MEQ IV (00:44)
[2023-09-16] MEDS: PROTONIX 100 IV (02:08)
[2023-09-16 07:01] LABS: % Basophils 0.4 % (0-2); % Eosinophils 0.3 % (0-6); % Immature Granulocytes 1.3 % (0-0.5); % Lymphocytes 3.9 % (20.5-51.1); % Monocytes 7.9 % (1.7-9.3); % Neutrophils 86.2 % (42.2-75.2); Absolute Immature Granulocytes 0.1 10^3/uL (0-0.05); Absolute Lymphocytes 0.4 10^3/uL (1.2-3.4); Absolute Monocytes 0.7 10^3/uL (0.1-0.6); Hematocrit 26.1 % (37.0-47.0); Hemoglobin 8.9 g/dL (12.0-16.0); Mean Corp Hgb Conc. 34.1 g/dL (33.0-37.0); Mean Corpuscular Hgb 28.8 pg (27.0-31.0); Mean Corpuscular Volume 84.5 fL (81.0-99.0); Mean Platelet Volume 10.3 fL (7.4-10.4); Nucleated Red Blood Cells % 0 %; Platelet Count 67 10^3/uL (130-400); Red Blood Cell Count 3.09 10^6/uL (4.20-5.40); Red Cell Dist. Width 21.7 % (11.5-14.5); White Blood Cell Count 9.2 10^3/uL (4.8-10.8)
[2023-09-16 07:32] LABS: Blood Urea Nitrogen 46 mg/dl (7-17); Carbon Dioxide 18 mmol/L (22-30); Chloride 99 mmol/L (98-107); Estimated Creatinine Clearance 15 ml/min; Glucose 102 mg/dl (70-99); Potassium 3.8 mmol/L (3.5-5.1); Sodium 128 mmol/L (135-145); eGFR 15.48
[2023-09-16] MEDS: CYMBALTA DELAYED RELEASE 30 MG PO (07:56)
[2023-09-16] MEDS: MIRALAX 17 GRAMS PO (07:56)
[2023-09-16] MEDS: DIFLUCAN 200 MG PO (07:57)
[2023-09-16] MEDS: SODIUM BICARBONATE 650 MG PO ×3 (07:57→21:19)
[2023-09-16] MEDS: FEOSOL 325 MG PO (07:57)
[2023-09-16] MEDS: VITAMIN B-12 1000 MCG PO (07:57)
--- NOTE | 2023-09-16 08:21 | W.PN.GI.CBS2 ---
Today's Communication / Plan
-
-- Suppository, check hemoglobin in the morning
Assessment / Plan
-
63-year-old female with history of stage IV metastatic breast cancer to the bone with radiation to the spine since September [address] Gabriela Jacobson with history of bilateral mastectomy, right breast radiation/pelvic radiation, right-sided
breast lymph node resection, port insertion status post removal, anxiety, depression, hyperlipidemia, ADD on [place] holiday with baseline hemoglobin in the 8 range. Seen by us 08/26/23 for Hgb of 4.4. At that time she was utilizing Ibuprofen. The
patient was transfused 2 units of packed red blood cells bringing her hemoglobin up to 8.4 at that time. She had an EGD/colonoscopy with no evidence of active bleeding. She did have edwige esophagitis and was Rx fluconazole. It was recommended
that she have an outpatient video capsule study which has not been performed as of yet. Presents again to the emergency room with low hemoglobin, at this time 6.0. She was in the emergency room on 09/08/2023 with a hemoglobin of 4 and was transfused
and discharged home per patient request. Patient states that she feels constipated, bloated. She comes in with an QUINTON. She vomited which she states is maroon this morning. No episodes of this prior. Prior imaging CT in 08/2023 There is new
lobular soft tissue in the presacral region and left adnexa which is high-level suspicion for malignant involvement.The presacral component measures approximately 2.5 x 4.5 x 4.0 cm and is confluent with the lobular left adnexal component which
measures approximately 8 x 2 x 3 cm.There is associated left periureteral stranding with borderline left hydronephrosis as well as stranding in the left inguinal region.
Impression:
Anemia
Hematemesis x 1
Edwige Esophagitis
Constipation
QUINTON
Metastatic Breast Ca
2.5 x 4.5 x 4.0 cm and is confluent with the lobular left adnexal component which measures approximately 8 x 2 x 3 cm.There is associated left periureteral stranding with borderline left hydronephrosis as well as stranding in the left inguinal
region (08/2023)
09/15/23 EGD showed very abnormal granular looking gastritis along the posterior stomach from the cardia to the antrum. Biopsies were taken. It was actively oozing which I treated with epinephrine to 1 area and then APC a significant area of the
stomach.
Biopsies are pending. Keep platelets up to help with oozing
09/16/23
-Low residue diet then back to normal upon discharge
-Not concerned about hemoglobin drop since patient got 2 units after hemoglobin of 6 which normal response would be a hemoglobin of 8. Today she is 8.9, not concerned
-Platelets are dropping, kidney function is worsening.
-- Will give a suppository since she has not moved her bowels. Already got MiraLAX.
-Patient wants to pause on chemotherapy.
Total Time Spent with Patient (in minutes): 20
Subjective
Subjective
Date of Service: September 16, 2023
Patient feels bloated. No bowel movement since Thursday when she normally moves regularly.
No overt bleeding
Objective
Data Reviewed
Laboratory Data:
Laboratory Results
09/16/23 06:37
09/16/23 06:37
Laboratory Results
PT 14.1 Sec (11.4-14.6) 09/14/23 11:33
INR 1.11 09/14/23 11:33
Total Bilirubin 0.7 mg/dl (0.2-1.3) 09/14/23 11:33
AST 76 U/L (14-36) H 09/14/23 11:33
ALT 14 U/L (0-35) 09/14/23 11:33
Alkaline Phosphatase 128 U/L (38-126) H 09/14/23 11:33
Vital Signs and I&O:
Vital Signs
Temp Pulse Resp BP Pulse Ox
97.2 F 103 18 123/77 98
09/16/23 07:30 09/16/23 07:30 09/16/23 07:30 09/16/23 07:30 09/16/23 07:30
I&O
09/15/23 09/16/23 09/17/23
06:59 06:59 06:59
Intake Total 500 / 500 1025 / 1025
Balance 500 / 500 1025 / 1025
Physical Exam
Physical Exam
HEENT: Anicteric
GI: Soft and Non Distended
Extremities: No Edema
Neuro: Non Focal
--- NOTE | 2023-09-16 09:22 | W.PN.ONC2 ---
Today's Communication / Plan
-
Awaiting path.
Impression
Impression
metastatic breast cancer
pain from bone mets
anemia - gastritis/bleeding noted on EGD
chronic thrombocytopenia, suspected ITP
QUINTON
Plan
Plan
Continue IV ppi, monitor CBC
Await EGD biopsies
IVF, monitor kidney function. Avoid NSAIDs, CT contrast dye
Will plan to begin taxane chemotherapy once acute issues improve, hopefully next week
Outpatient port placement
Subjective/Objective
Chief Complaint
ACS Heme Onc
Subjective
Patient states she wants to refuse CT and get stronger. Says 'too much radiation.' EGD showed hemorrhagic gastritis. Bx pending.
Vital Signs:
Vital Signs
Temp Pulse Resp BP Pulse Ox
97.2 F 103 18 123/77 98
09/16/23 07:30 09/16/23 07:30 09/16/23 07:30 09/16/23 07:30 09/16/23 07:30
Lab Results:
Laboratory Data
WBC 9.2 10^3/uL (4.8-10.8) 09/16/23 06:37
Hgb 8.9 g/dL (12.0-16.0) L 09/16/23 06:37
Plt Count 67 10^3/uL (130-400) L 09/16/23 06:37
PT 14.1 Sec (11.4-14.6) 09/14/23 11:33
INR 1.11 09/14/23 11:33
eGFR 15.48 09/16/23 06:37
Physical Exam
Cardiology: S1 and S2
Pulmonary: Clear
[2023-09-16] MEDS: DULCOLAX 10 MG RECTAL (09:36)
--- NOTE | 2023-09-16 11:00 | PTCARENOTE ---
Patient again refused to go to CT scan. RN educated patient about imaging helping to determine the plan of care. Patient indicated understanding and refused. MD notified.
--- NOTE | 2023-09-16 11:39 | W.PN.HOSP.TC ---
Today's Communication/Plan
-
Ultrasound pending
Continue p.o. bicarbonate
Will ask nephro for input
bowel regimen
Assessment / Plan
Assessment / Plan
Acute on Chronic Anemia likely secondary to upper GI bleed in setting of thrombocytopenia
-Hemoglobin 8.9 Status post units 2u PRBC so far.
-Trend Hgb
-Status post endoscopy showing normal esophagus. Right foot retained and removed. Mucosal changes suspicious for gastritis with hemorrhage. Concern for metastatic disease? Biopsied. Status post treatment with APC.
-Started on low residue diet
-GI recs. d/w with GI okay for PPI BID. DC gtt.
Bicytopenia (anemia thrombocytopenia) likely secondary to chemotherapy
-Transfuse for hemoglobin less than 7.
-Trend CBC daily. Reticulocyte count elevated likely in the setting of severe anemia
Acute Kidney Injury likely prerenal in the setting of blood loss anemia versus renal versus postrenal
Severe metabolic acidosis
Chronic hyponatremia
-Prior imaging showed some left hydronephrosis related presacral mass
-Monitor bladder scans
-Patient refusing CT scan. Will order ultrasound bladder
-Check urine studies-with FENA
-Received normal saline and bicarbonate drip. Sodium was not will DC hypotonic saline. Continue with p.o. bicarbonate
-Bladder scan protocol
-Last nephrology for input
Constipation
-Bowel regimen added per GI
Transaminitis likely secondary to chemotherapy
-Trend for now
Recent Candidiasis Esophagitis
-Continue Fluconazole - Last Day September 17
Metastatic Breast Cancer with new Presacral Soft Tissue Mass
-Consult Hematology
-Follows with Dr. Jacobson
Anxiety/Depression
-Continue alprazolam, duloxetine and sertraline
DVT proph: SCDs in the setting of GI bleeding
Code Status: Full Code
Anticipated Discharge: > 48 hours
Subjective/Interval History
-
Date of Service: September 16, 2023
States of constipation
Patient is refusing CAT scan. Discussed with patient multiple times the past few days and she is refusing CAT scan even without any contrast.
Agreeable for ultrasound for now.
Objective Data
-
Labs:
Laboratory Results
09/16/23
06:37
WBC 9.2
Hgb 8.9 L
Hct 26.1 L
Plt Count 67 L
Sodium 128 L
Potassium 3.8
Chloride 99
Carbon Dioxide 18 L
BUN 46 H
Creatinine 3.2 H
Glucose 102 H
Calcium 7.0 L
Vital Signs:
Vital Signs
Temp Pulse Resp BP Pulse Ox
97.3 F 106 18 118/77 98
09/16/23 11:20 09/16/23 11:20 09/16/23 11:20 09/16/23 11:20 09/16/23 11:20
I&O
09/15/23 09/16/23 09/17/23
06:59 06:59 06:59
Intake Total 500 / 500 1025 / 1025
Balance 500 / 500 1025 / 1025
Physical Exam
-
General: Well Developed and No Apparent Distress
HEENT: Normocephalic, Atraumatic and Moist Mucous Membranes
Respiratory: Clear to Auscultation
Cardiac: Regular Rhythm and S1/S2; Negative Murmur, Rub or Gallop
GI: Soft, Nontender, Nondistended and Normal Bowel Sounds; Negative Organomegaly
Rectal: Deferred by Provider
Musculoskeletal: No Clubbing, No Cyanosis and No Edema
Skin: Negative Rash
Neuro: Awake and Nonfocal/Grossly Intact
Psych: Calm
Data Reviewed
-
Total Time Spent with Patient (in minutes): 55
[2023-09-16] MEDS: COMPAZINE 5 MG IV (15:12)
--- NOTE | 2023-09-16 15:24 | CM ---
Chart reviewed and plan is to home when stable, patient was requesting a hospital bed and script has been placed on chart for completion. business case analyst reached out to [employer] and will fax paperwork and script when completed to DME company.
Plan; Home, business case analyst contacted [employer].
--- NOTE | 2023-09-16 18:06 | W.PN.URO.CBU ---
Today's Communication / Plan
-
[facility] AM LABS NO HOSKINS
Assessment / Plan
-
POSSIBLE OBSTRUCTIVE UROPATHY DU TO PRESACRAL BREAST CANCER MET. JEAN-PAUL. POSSIB;EPRERNAL WILL AWAIT AM CRATININE F WORSE WILL ORDER CT SCAN WITHUT CONTRAT [ PT REFUSED CAT SCAN LAST 2 DAYS ] BUT S AGREEABLE IF OBSTRUCTION GREATER JACINTO
AUGUST CAT SCAN WILL NEED T LAST LEFT PERC TUBE
Diagnosis
-
Date of Service: September 16, 2023
-
Patient Diagnosis:bilateral hydro with QUINTON and creatinine 1.9 to 3.2 in 2 days had u/s that showed left more than rt hydro but compared to cat scan month ago with nl creatinine that hydrois stable bladdr empty no jr-ets on u/s pt asx Has
metastaic to bone and soft tissue breast cancer and met to presacral area no nodes on pelvis
Post Op Day:
Subjective
-
no colic or hematuria
Objective
-
Vital Signs
Temp Pulse Resp BP Pulse Ox
98.2 F 104 18 126/68 100
09/16/23 15:15 09/16/23 15:15 09/16/23 15:15 09/16/23 15:15 09/16/23 15:15
Intake and Output
09/15/23 09/16/23 09/17/23
06:59 06:59 06:59
Intake Total 500 / 500 1025 / 1025 720 / 720
Balance 500 / 500 1025 / 1025 720 / 720
Intake:
Oral fluids 720 / 720
IV fluids (Total) 1025 / 1025
NaBicarb 65 / 65
Blood Product Amount Infused ( 500 / 500
mL)
Packed Rbc Leukoreduced Unit 250 / 250
[id number]
Packed Rbc Leukoreduced Unit 250 / 250
[id number]
Other:
Number of approximated MODERATE 2 1
amounts of urine
How many times incontinent 1
MODERATE amount urine
Laboratory Results
09/16/23 06:37
09/16/23 06:37
Review of Systems
-
Abdomen/GI: No Symptoms
: No Symptoms
Physical Exam
-
General -chronically ill caCHECTIC
Chest - clear bilaterally
Abdomen - soft, non-tender, positive bowel sounds, no CVAT, no incisional pain or distention
Genitalia - normal
Rectal - normal
Skin - warm & dry with no rash
Neuro - AOx3, no motor deficits
Extremities - no clubbing, no cyanosis, no edema
Incision - clean, dry
Dressing - clean, dry, intact
Care Review
Data Reviewed
Discussed with: Hospitalist and Nursing
CT Scan: Image Pers Reviewed
Ultrasound: Image Pers Reviewed
Total Time Spent with Patient (in minutes): 70 MINUTES
--- NOTE | 2023-09-16 18:23 | W.CON.NEPH ---
Consultation
-
Date/Time Consultation Requested: 09/16/23 4p
Date/Time Consultation Performed: 09/16/23 5p
Requesting Provider: Dr. Fletcher
Performing Provider: Dr. Simeon
Reason for Consultation: QUINTON
Medical History
-
Chief Complaint: QUINTON, hyponatremia
History of Present Illness:
Patient is a 63 y/o female with a metastatic breast cancer, anemia, cauda equina, and left pelvic mass who presented for low hemoglobin, worsening left flank pain, and chronic weakness, lethargy, and low back pain. She states that she was sent from
the hematology office the morning of admission for low hemoglobin. Patient was seen here in the ED on September 07 for a Hgb of 4.4. At that time she received 2 units PRBCs and was discharged home as she did not want to stay in the hospital. Upon
arriving at the emergency department, she vomited dark red liquid. She denies other recent episodes of vomiting or rectal bleeding. She has been chronically constipated and states that her last bowel movement was yesterday. She admits that her
stools have been dark in color but denies recent black stool. Additionally, she complains of worsening left flank pain. She was found to have a new presacral mass with associated mild left hydro by CT scan a few weeks ago. She admits to chronic
urinary incontinence but denies dark urine or change in urinary habits. She denies shortness of breath, chest pain, palpitations or dizziness. Her Cr has continued to rise, now at 3.2, and her Na has fallen to 128.
Past Medical History
Additional Past Medical History:
Metastatic Breast Cancer
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
Anxiety / Depression
Past Surgical History: Reports Other
Additional Past Surgical History:
Bilateral Mastectomy
Social History
Tobacco: Former Smoker
Alcohol: Occasional
Family History
Family History: Not Pertinent
Allergies / Home Medications
Allergy/AdvReac Type Severity Reaction Status Date / Time
bupropion [From Wellbutrin] Allergy Patient Verified 09/14/23 10:42
states she
lost a lot
of weight
on.
codeine Allergy 'makes her Verified 09/14/23 10:42
ill'
Iodinated Contrast Media Allergy THROAT SHUT Verified 09/14/23 10:42
�Medication �Instructions �Recorded �Confirmed �Type
alprazolam 0.5 mg tablet 0.5 mg PO HSPRN PRN sleep/anxiety 09/08/23 09/14/23 History
cyanocobalamin (vitamin B-12) 1,000 mcg PO DAILY Supplement 09/08/23 09/14/23 History
1,000 mcg tablet
duloxetine 30 mg capsule,delayed 30 mg PO DAILY Mental 09/08/23 09/14/23 History
release Health/Anxiety
ferrous sulfate 325 mg (65 mg 325 mg PO DAILY Supplement 09/08/23 09/14/23 History
iron) tablet (iron)
fluconazole 200 mg tablet 200 mg PO DAILY Infection 09/08/23 09/14/23 History
gabapentin 300 mg capsule 300 mg PO TID PRN nerve pain 09/08/23 09/14/23 History
pantoprazole 40 mg tablet,delayed 40 mg PO DAILY Gastrointestinal 09/08/23 09/14/23 History
release Issue
polyethylene glycol 3350 17 gram 17 g PO DAILY Constipation 09/08/23 09/14/23 History
oral powder packet (Miralax)
sertraline 100 mg tablet 100 mg PO HS Mental Health/Anxiety 09/08/23 09/14/23 History
acetaminophen 325 mg tablet 650 mg PO Q4HPRN PRN mild pain 09/14/23 09/14/23 History
(Tylenol)
Review of Systems
-
No difficulty with urination. No fever, no chest pain, no SOB.
no abdominal pain currently.
The remainder of the complete review of systems was negative
Physical Exam
Vital Signs
Vital Signs
Temp Pulse Resp BP Pulse Ox
98.2 F 104 18 126/68 100
09/16/23 15:15 09/16/23 15:15 09/16/23 15:15 09/16/23 15:15 09/16/23 15:15
Lab Results
WBC 9.2 10^3/uL (4.8-10.8) 09/16/23 06:37
RBC 3.09 10^6/uL (4.20-5.40) L 09/16/23 06:37
Hgb 8.9 g/dL (12.0-16.0) L 09/16/23 06:37
Hct 26.1 % (37.0-47.0) L 09/16/23 06:37
Plt Count 67 10^3/uL (130-400) L 09/16/23 06:37
Sodium 128 mmol/L (135-145) L 09/16/23 06:37
Potassium 3.8 mmol/L (3.5-5.1) 09/16/23 06:37
Chloride 99 mmol/L (98-107) 09/16/23 06:37
Carbon Dioxide 18 mmol/L (22-30) L 09/16/23 06:37
BUN 46 mg/dl (7-17) H 09/16/23 06:37
Creatinine 3.2 mg/dL (0.6-1.0) H 09/16/23 06:37
eGFR 15.48 09/16/23 06:37
Glucose 102 mg/dl (70-99) H 09/16/23 06:37
Calcium 7.0 mg/dl (8.4-10.2) L 09/16/23 06:37
Albumin 3.2 g/dl (3.5-5.0) L 09/14/23 11:33
Physical Exam
General: AOx3
HEENT: PERRL, EOMI, Anicteric, Ear/Nose Intact, Hearing Normal, Oropharynx Clear/Moist, Neck Supple, Trachea Midline and No JVD
Respiratory: Clear
Cardiac: Regular Rate/Rhythm
Abdomen: Soft, Nontender, Normal Bowel Sounds and No Hepatosplenomegaly
Musculoskeletal: No Edema
Skin: No Rash and Normal Turgor
Psych: Mood/afflect pleasant and Insight/judgement good
Assessment/Plan
-
Assessment
-metastatic breast CA to sacral area/abdomen/stomach-09/14 gastric bx c/w breast CA
-QUINTON
-bilateral hydronephrosis
-hyponatremia
-metabolic acidosis
-anxiety/depression
-anemia
Plan
-check urine osmolality. strongly suspect xs ADH
-samsca 7.5mg today, low dose given other meds
-follow BMP
-FR 48oz
- eval, may likely need percutaneous nephrostomy/ies
-straight cath for urine. if bladder retention, keep cooley
-d/w pat potential of worsening kidney function. asked her to think about what she would want if her kidneys failed. I told her i would not recommend dialysis given her current CA state and poor QoL with dialysis
Data Reviewed
-
Radiology: Image Personally Visualized and interpreted (08/18 XR hip, left blastic metastatic dz)
CT Scan: Report Reviewed by me (08/18 CT A/P presacral and left adnexal mass, left hydronephrosis)
Ultrasound: Report Reviewed by me (09/15 renal US, bilateral hydronephrosis)
Labs: Labs Reviewed by me
Old Records: Reviewed
--- NOTE | 2023-09-16 19:12 | PTCARENOTE ---
Neph instructed RN to insert cooley, Urology at bedside stated patient does not need it, Nephorology contacted and advised to straight cath and if output >300 leave inserted. Attempted x1 to insert straight cath. Urine flash returned and then the
catheter coiled out of patient's vagina with no further urine return. Patient opted to await next void, MD made aware, shift manager RN aware as well. [facility] after urine collection sample per Nephrology.
[2023-09-16] MEDS: PROTONIX IV 40 MG IV (20:08)
[2023-09-16] MEDS: NSS (PRESERVATIVE FREE) 10 ML IV (20:08)
[2023-09-16] MEDS: ZOFRAN 4 MG IV (21:18)
[2023-09-16] MEDS: ZOLOFT PO (21:19)
--- NOTE | 2023-09-16 21:59 | PTCARENOTE ---
~19:35 BP 95/64, HR 104, Temp 98.0, RR 18, O2 99%. Pt asymptomatic. LAWN SERVICE MANAGERTYREE Velasquez notified. No new orders at this time.
Pt reports 'unresolved nausea' since 'prior to coming to hospital.' Pt states 'I'm on many medications.' Pt asked for something for nausea. Pt has PRN Compazine, pt is refusing it. Pt states 'I don't like it because it causes constipation.' LAWN SERVICE MANAGER
Mercy Velasquez notified. New orders placed. Plan of care ongoing.
[2023-09-17] VITALS (8 sets, daily range): BP systolic 87–131; BP diastolic 60–70; PULSE 110–130; O2SAT 97; BMI 22.1
[2023-09-17] MEDS: SAMSCA 7.5 MG PO (00:34)
[2023-09-17 01:11] LABS: Osmolality Urine 319 mOsm/kg (300-900)
[2023-09-17] MEDS: DILAUDID 0.5 MG IV ×2 (03:59→11:16)
[2023-09-17 07:30] LABS: % Basophils 0.3 % (0-2); % Eosinophils 0.1 % (0-6); % Lymphocytes 2.4 % (20.5-51.1); % Monocytes 5.7 % (1.7-9.3); % Neutrophils 90.5 % (42.2-75.2); Absolute Immature Granulocytes 0.1 10^3/uL (0-0.05); Absolute Lymphocytes 0.3 10^3/uL (1.2-3.4); Absolute Monocytes 0.6 10^3/uL (0.1-0.6); Absolute Neutrophils 10.1 10^3/uL (1.4-6.5); Hematocrit 25.8 % (37.0-47.0); Hemoglobin 8.5 g/dL (12.0-16.0); Mean Corp Hgb Conc. 32.9 g/dL (33.0-37.0); Mean Corpuscular Hgb 28.8 pg (27.0-31.0); Mean Corpuscular Volume 87.5 fL (81.0-99.0); Mean Platelet Volume 11.5 fL (7.4-10.4); Nucleated Red Blood Cells % 0 %; Platelet Count 76 10^3/uL (130-400); Red Blood Cell Count 2.95 10^6/uL (4.20-5.40); Red Cell Dist. Width 22.5 % (11.5-14.5); White Blood Cell Count 11.2 10^3/uL (4.8-10.8)
[2023-09-17 08:03] LABS: Anisocytosis 1+; Normal RBC Morphology No; Polychromasia Slight
[2023-09-17 08:11] LABS: Blood Urea Nitrogen 57 mg/dl (7-17); Calcium 7.1 mg/dl (8.4-10.2); Carbon Dioxide 17 mmol/L (22-30); Chloride 94 mmol/L (98-107); Estimated Creatinine Clearance 11 ml/min; Glucose 99 mg/dl (70-99); Potassium 4.1 mmol/L (3.5-5.1); Sodium 130 mmol/L (135-145); eGFR 10.28
--- NOTE | 2023-09-17 08:48 | W.PN.HOSP.TC ---
Today's Communication/Plan
-
[facility] for PERC nephrostomy
IV fluids will defer to nephrology
Trend BMP
Trend CBC
Not on blood thinners
Assessment / Plan
Assessment / Plan
Acute on Chronic Anemia likely secondary to upper GI bleed in setting of thrombocytopenia
-Hemoglobin 8.5 Status post units 2u PRBC so far.
-Trend Hgb
-Status post endoscopy showing normal esophagus. Right foot retained and removed. Mucosal changes suspicious for gastritis with hemorrhage. Status post treatment with APC. Gastric biopsy lesion positive for Invasive carcinoma consistent with
breast origin involving gastric mucosa
-Started on low residue diet
-GI recs. d/w with GI okay for PPI BID. DC gtt.
Bicytopenia (anemia thrombocytopenia) likely secondary to chemotherapy
-Transfuse for hemoglobin less than 7.
-Trend CBC daily. Reticulocyte count elevated likely in the setting of severe anemia
Acute Kidney Injury likely post renal with concern for ureter obstruction
Severe metabolic acidosis
Chronic hyponatremia
-Prior imaging showed some left hydronephrosis related presacral mass
-Monitor bladder scans
-Patient finally agreed for CAT scan today after refusing for 2 days.
-CT abd/pelvis w/o contrast noted. d/w with urology/IRAD consulted for Percutaneous tubes. NPO PMN.
-Check urine studies-with [facility]
-Received normal saline and bicarbonate drip. Sodium was not will DC hypotonic saline. Continue with p.o. bicarbonate
-Bladder scan protocol
-Defer IV fluids to nephrology.
-Last nephrology for input
Constipation
-Bowel regimen added per GI
Transaminitis likely secondary to chemotherapy
-Trend for now
Recent Candidiasis Esophagitis
-Continue Fluconazole - Last Day September 17
Metastatic Breast Cancer with new Presacral Soft Tissue Mass, with the lung lesion concerning for metastases, pericolonic probable metastatic deposit. Small nodule adjacent right kidney probably related to metastasis. Widespread osseous metastases
seen
-Consult Hematology
-Follows with Dr. Jacobson
Anxiety/Depression
-Continue alprazolam, duloxetine and sertraline
DVT proph: SCDs in the setting of GI bleeding
Code Status: Full Code
D/W with urology.
Long-term prognosis poor
Anticipated Discharge: > 48 hours
Subjective/Interval History
-
Date of Service: September 17, [address] scan
feeling tired
Objective Data
-
Labs:
Laboratory Results
09/17/23
06:52
WBC 11.2 H
Hgb 8.5 L
Hct 25.8 L
Plt Count 76 L
Sodium 130 L
Potassium 4.1
Chloride 94 L
Carbon Dioxide 17 L
BUN 57 H
Creatinine 4.5 H*
Glucose 99
Calcium 7.1 L
Vital Signs:
Vital Signs
Temp Pulse Resp BP Pulse Ox
97.7 F 110 18 116/64 100
09/17/23 07:30 09/17/23 07:30 09/17/23 07:30 09/17/23 07:30 09/17/23 07:30
I&O
09/16/23 09/17/23 09/18/23
06:59 06:59 06:59
Intake Total 1025 / 1025 960 / 960
Balance 1025 / 1025 960 / 960
Physical Exam
-
General: Well Developed and No Apparent Distress
HEENT: Normocephalic, Atraumatic and Moist Mucous Membranes
Respiratory: Clear to Auscultation
Cardiac: Regular Rhythm and S1/S2; Negative Murmur, Rub or Gallop
GI: Soft, Nontender, Nondistended and Normal Bowel Sounds; Negative Organomegaly
Rectal: Deferred by Provider
Musculoskeletal: No Clubbing, No Cyanosis and No Edema
Skin: Negative Rash
Neuro: Awake and Nonfocal/Grossly Intact
Psych: Calm
Data Reviewed
-
Total Time Spent with Patient (in minutes): 55
--- NOTE | 2023-09-17 09:26 | W.PN.URO.CBU ---
Today's Communication / Plan
-
FOR CAT SCAN
Assessment / Plan
-
POSSIBLE OBSTRUCTIVE UROPATHY DU TO PRESACRAL BREAST CANCER MET. NO STONES. creatinine up again to 4.5 CT SCAN WITHOUT CONTRAT [ PT REFUSED CAT SCAN LAST 2 DAYS ] BUT S AGREEABLE IF OBSTRUCTION GREATER August CAT SCAN WILL NEED T LAST
LEFT PERC TUBE possiblr biltaeral
Diagnosis
-
Date of Service: September 17, 2023
-
Patient Diagnosis:
Post Op Day:
Patient Diagnosis:bilateral hydro with QUINTON and creatinine 1.9 to 3.2 in 2 days had u/s that showed left more than rt hydro but compared to cat scan month ago with nl creatinine. Metcalfe is stable bladder empty no jets on u/s pt asx Has
metastatic to bone and soft tissue breast cancer and met to presacral area no nodes on pelvis Today increased creatinine will perform ct scan and if as expected there is hydro increasethen re li left and possibly rt stents
Post Op Day:
Subjective
-
no colic
Objective
-
Vital Signs
Temp Pulse Resp BP Pulse Ox
97.7 F 110 18 116/64 100
09/17/23 07:30 09/17/23 07:30 09/17/23 07:30 09/17/23 07:30 09/17/23 07:30
Intake and Output
09/16/23 09/17/23 09/18/23
06:59 06:59 06:59
Intake Total 1025 / 1025 960 / 960
Balance 1025 / 1025 960 / 960
Intake:
Oral fluids 960 / 960
IV fluids (Total) 1025 / 1025
NaBicarb 65 / 65
Other:
Number of approximated MODERATE 1 3
amounts of urine
How many times incontinent 1
MODERATE amount urine
Laboratory Results
09/17/23 06:52
09/17/23 06:52
Review of Systems
-
: No Symptoms
Physical Exam
-
General - cachectic
Chest - clear bilaterally
Abdomen - soft, non-tender, positive bowel sounds, no CVAT, no incisional pain or distention
Genitalia - normal
Rectal - normal
Skin - warm & dry with no rash
Neuro - AOx3, no motor deficits
Extremities - no clubbing, no cyanosis, no edema
Incision - clean, dry
Dressing - clean, dry, intact
Care Review
Data Reviewed
Discussed with: Hospitalist and Nursing
CT Scan: Image Pers Reviewed
[2023-09-17] MEDS: DIFLUCAN 200 MG PO (10:05)
[2023-09-17] MEDS: VITAMIN B-12 1000 MCG PO (10:06)
[2023-09-17] MEDS: NSS (PRESERVATIVE FREE) 10 ML IV ×2 (10:06→20:51)
[2023-09-17] MEDS: FEOSOL 325 MG PO (10:06)
[2023-09-17] MEDS: CYMBALTA DELAYED RELEASE 30 MG PO (10:06)
[2023-09-17] MEDS: PROTONIX IV 40 MG IV ×2 (10:06→20:50)
[2023-09-17] MEDS: MIRALAX PO ×2 (10:07→10:10)
[2023-09-17] MEDS: SODIUM BICARBONATE 650 MG PO ×2 (10:08→20:53)
[2023-09-17] MEDS: FLUSH (NSS) 2 FLUSH IV (11:17)
--- NOTE | 2023-09-17 13:00 | W.PN.ONC ---
Addendum entered and electronically signed by Kevin Alcantar DO 09/17/23 15:27:
Patient's chart reviewed independently. Pathology returned evidence of metastatic lobular breast cancer to the stomach responsible for bleeding and iron deficiency. Sample appears ER negative which will require cytotoxic chemotherapy approach.
Taxane therapy scheduled to begin following discharge.
Original Note:
Today's Communication / Plan
-
09/14 EGD biopsies of stomach: Invasive carcinoma consistent with breast origin involving gastric mucosa (patient is not yet aware)
09/16 WBC 11.5, Hgb 8.5, Hct 25.8, PLT 76
CBC w/ diff daily, monitor for bleeding
Transfuse as needed to maintain Hgb >7, PLT >20 (or >50 with active bleeding)
09/16 Creat 4.5
IRAD for PCN today (possibly bilateral)
GI, Nephrology, Urology following
Supportive care, pain management
[facility] plans to begin Taxane chemotherapy once acute issues improve, hopefully next week after outpatient port placement.
We will follow closely.
Impression
Impression
Metastatic breast cancer
Bone pain from metastatic disease
Presacral lesion
Acute anemia - gastritis/bleeding noted on EGD
Recent episode of hematemesis
Chronic thrombocytopenia, suspected ITP
Acute kidney injury
Urinary incontinence
Subjective/Objective
Subjective/Objective
patient fatigued.
Vital Signs:
Vital Signs
Temp Pulse Resp BP Pulse Ox
98.6 F 108 18 123/60 100
09/17/23 11:30 09/17/23 11:30 09/17/23 11:30 09/17/23 11:30 09/17/23 11:30
Lab Results:
Laboratory Data
WBC 11.2 10^3/uL (4.8-10.8) H 09/17/23 06:52
Hgb 8.5 g/dL (12.0-16.0) L 09/17/23 06:52
Plt Count 76 10^3/uL (130-400) L 09/17/23 06:52
PT 14.1 Sec (11.4-14.6) 09/14/23 11:33
INR 1.11 09/14/23 11:33
eGFR 10.28 09/17/23 06:52
09/16/23 Renal US: Moderate bilateral hydronephrosis. Left greater than right. Stable. Nonvisualization ureteral jets. Postvoid residual same as prevoid volume.Appearance of bladder wall thickening. However, limited distention.
09/17/23 CT abdomen/pelvis: Mild bilateral hydronephrosis. No renal or ureteral calculi identified. There is wall thickening of the urinary bladder which may be related to prior radiation therapy. Bladder is relatively underdistended and evaluation
is limited on noncontrast examination. Progression of metastatic disease as above. Multiple low-attenuation foci within the liver suspicious for metastases. Retroperitoneal lymphadenopathy consistent with metastasis. Small pericolonic probable
metastatic deposits. Small nodules adjacent to the right kidney probably related to metastasis.Left pelvic sidewall abnormal soft tissue attenuation related to either metastasis or post radiation change as seen prior. Presacral soft tissue
attenuation thickening probably related to radiation change. Minimal right pleural effusion. Small left pleural effusion with adjacent atelectasis/consolidation.Liquid stool throughout the colon. No obstruction. Unchanged incidental duodenal
lipoma.Widespread osseous metastases as seen prior. Anasarca.
--- NOTE | 2023-09-17 14:34 | CM ---
Chart reviewed and patient to return to home when stable, physical therapy are recommending home health, and patient has selected [facility], [facility] contacted, hospital bed paperwork along with prescription sent to [facility].
Plan; Home with [facility] and hospital bed from [facility].
--- NOTE | 2023-09-17 16:12 | W.PN.GI.CBS2 ---
Today's Communication / Plan
-
-- Add nutrition supplements
GI will sign off. Please call with questions
Assessment / Plan
-
63-year-old female with history of stage IV metastatic breast cancer to the bone with radiation to the spine since September [address] Gabriela Jacobson with history of bilateral mastectomy, right breast radiation/pelvic radiation, right-sided
breast lymph node resection, port insertion status post removal, anxiety, depression, hyperlipidemia, ADD on [place] holiday with baseline hemoglobin in the 8 range. Seen by us 08/26/23 for Hgb of 4.4. At that time she was utilizing Ibuprofen. The
patient was transfused 2 units of packed red blood cells bringing her hemoglobin up to 8.4 at that time. She had an EGD/colonoscopy with no evidence of active bleeding. She did have rosales esophagitis and was Rx fluconazole. It was recommended
that she have an outpatient video capsule study which has not been performed as of yet. Presents again to the emergency room with low hemoglobin, at this time 6.0. She was in the emergency room on 09/08/2023 with a hemoglobin of 4 and was transfused
and discharged home per patient request. Patient states that she feels constipated, bloated. She comes in with an QUINTON. She vomited maroon on admission . No episodes of this prior. Prior imaging CT in 08/2023 There is new lobular soft tissue in
the presacral region and left adnexa which is high-level suspicion for malignant involvement.The presacral component measures approximately 2.5 x 4.5 x 4.0 cm and is confluent with the lobular left adnexal component which measures approximately 8 x
2 x 3 cm.There is associated left periureteral stranding with borderline left hydronephrosis as well as stranding in the left inguinal region.
09/15/23 EGD showed very abnormal granular looking gastritis along the posterior stomach from the cardia to the antrum. Biopsies were taken. It was actively oozing which I treated with epinephrine to 1 area and then APC a significant area of the
stomach.
Biopsies with concern for invasive carcinoma with breast origin involving gastric mucosa
Impression:
Anemia
Hematemesis
EGD with concern for glandular gastritis on EGD s/p epi and APC path concerning for invasive carcinoma with breast origin involving gastric mucosa
thrombocytopenia
Rosales Esophagitis
Constipation
QUINTON
Metastatic Breast Ca
2.5 x 4.5 x 4.0 cm and is confluent with the lobular left adnexal component which measures approximately 8 x 2 x 3 cm.There is associated left periureteral stranding with borderline left hydronephrosis as well as stranding in the left inguinal
region (08/2023)
PLAN:
path as noted with concern for invasive carcinoma consistent with breast origin involving gastric mucosa -I did discuss this with the patient. She is aware of the biopsies
reviewed with Dr. Alcantar
hbg 10.1- 8.9- 8.5 stools dark brown
Regular diet, add liquid nutrition supplements since she has no appetite
cont to trend platelets - try to keep up with noted oozing from stomach on recent EGD
-Patient wants to pause on chemotherapy.
She can discuss details with Dr. Jacobson as an outpatient.
GI will sign off. Please call with any questions.
Total Time Spent with Patient (in minutes): 20
Subjective
Subjective
Date of Service: September 17, 2023
Maria Luisa has no appetite. She did have a dark brown stool.
Objective
Data Reviewed
Laboratory Data:
Laboratory Results
09/17/23 06:52
09/17/23 06:52
Laboratory Results
PT 14.1 Sec (11.4-14.6) 09/14/23 11:33
INR 1.11 09/14/23 11:33
Total Bilirubin 0.7 mg/dl (0.2-1.3) 09/14/23 11:33
AST 76 U/L (14-36) H 09/14/23 11:33
ALT 14 U/L (0-35) 09/14/23 11:33
Alkaline Phosphatase 128 U/L (38-126) H 09/14/23 11:33
Vital Signs and I&O:
Vital Signs
Temp Pulse Resp BP Pulse Ox
98.2 F 113 18 131/70 97
09/17/23 15:15 09/17/23 15:15 09/17/23 15:15 09/17/23 15:15 09/17/23 15:15
I&O
09/16/23 09/17/23 09/18/23
06:59 06:59 06:59
Intake Total 1025 / 1025 960 / 960
Balance 1025 / 1025 960 / 960
Physical Exam
Physical Exam
HEENT: Anicteric
GI: Soft
[2023-09-17] MEDS: SODIUM BICARBONATE PO ×2 (17:46→18:45)
[2023-09-17] MEDS: COMPAZINE 5 MG IV (17:54)
--- NOTE | 2023-09-17 18:19 | W.PN.NEPH.PH ---
Today's Communication / Plan
-
plan pCN bilat
add po bicarb
Assessment/Plan
-
Assessment
-metastatic breast CA to sacral area/abdomen/stomach-09/14 gastric bx c/w breast CA
-QUINTON
-bilateral hydronephrosis
-hyponatremia
-metabolic acidosis
-anxiety/depression
-anemia
Plan
QUINTON-cr increasing still at 4.5 from obst uropathy
plan bilat PCN tomorrow, noted CT results - follows
met acidosis is better, will add po bicarb
no IVF at this time
hyponatremia is better post sasmca, U osmo high 319
-FR 48oz
f/u calcium level, I mumtaz in am, vit D
c/o left thigh edema -likely need doppler-TT primary team
Dr Simeon on 09/15-d/w pat potential of worsening kidney function. asked her to think about what she would want if her kidneys failed. I told her i would not recommend dialysis given her current CA state and poor QoL with dialysis
-
-
Date of Service: September 17, 2023
CC / HPI / ROS
-
Chief Complaint:
QUINTON, hyponatremia
History of Present Illness:
cr is up at 4.5, k normal
bicarb 17 low
BP stable
mumtaz at 7.1
Review of Systems:
no cp or sob
feels little puffy
c/o left thigh edema with out pain
poor appetite
Labs
-
Labs:
WBC 11.2 10^3/uL (4.8-10.8) H 09/17/23 06:52
RBC 2.95 10^6/uL (4.20-5.40) L 09/17/23 06:52
Hgb 8.5 g/dL (12.0-16.0) L 09/17/23 06:52
Hct 25.8 % (37.0-47.0) L 09/17/23 06:52
Plt Count 76 10^3/uL (130-400) L 09/17/23 06:52
Sodium 130 mmol/L (135-145) L 09/17/23 06:52
Potassium 4.1 mmol/L (3.5-5.1) 09/17/23 06:52
Chloride 94 mmol/L (98-107) L 09/17/23 06:52
Carbon Dioxide 17 mmol/L (22-30) L 09/17/23 06:52
BUN 57 mg/dl (7-17) H 09/17/23 06:52
Creatinine 4.5 mg/dL (0.6-1.0) H* 09/17/23 06:52
eGFR 10.28 09/17/23 06:52
Glucose 99 mg/dl (70-99) 09/17/23 06:52
Calcium 7.1 mg/dl (8.4-10.2) L 09/17/23 06:52
Albumin 3.2 g/dl (3.5-5.0) L 09/14/23 11:33
CT abd:
IMPRESSION:
1. Mild bilateral hydronephrosis. No renal or ureteral calculi identified. There is wall thickening of the urinary bladder which may be related to prior radiation therapy. Bladder is relatively underdistended and evaluation is limited on
noncontrast examination.
2. Progression of metastatic disease as above. Multiple low-attenuation foci within the liver suspicious for metastases. Retroperitoneal lymphadenopathy consistent with metastasis. Small pericolonic probable metastatic deposits. Small nodules
adjacent to the right kidney probably related to metastasis.
3. Left pelvic sidewall abnormal soft tissue attenuation related to either metastasis or post radiation change as seen prior. Presacral soft tissue attenuation thickening probably related to radiation change.
4. Minimal right pleural effusion. Small left pleural effusion with adjacent atelectasis/consolidation.
5. Liquid stool throughout the colon. No obstruction. Unchanged incidental duodenal lipoma.
6. Widespread osseous metastases as seen prior.
7. Anasarca.
Physical Exam
-
Vital Signs:
Vital Signs
Temp Pulse Resp BP Pulse Ox
98.2 F 113 18 131/70 97
09/17/23 15:15 09/17/23 15:15 09/17/23 15:15 09/17/23 15:15 09/17/23 15:15
Cardiovascular:: Regular rate and rhythm
Respiratory:: Bilateral: CTA (decreased)
Abdomen:: Nontender and Soft
Morgan Catheter: No
Other Findings::
left thigh edema 2+
[2023-09-17] MEDS: ZOLOFT PO (20:58)
[2023-09-17] MEDS: DILAUDID 0.25 MG IV (21:00)
[2023-09-18] VITALS (19 sets, daily range): BP systolic 87–108; BP diastolic 52–68; PULSE 106–117; BMI 22.3
[2023-09-18] MEDS: DILAUDID 0.25 MG IV (01:31)
[2023-09-18 07:18] LABS: Ionized Calcium 0.91 mMOL/L (1.15-1.33)
[2023-09-18 07:22] LABS: % Basophils 0.2 % (0-2); % Eosinophils 0.2 % (0-6); % Immature Granulocytes 1.1 % (0-0.5); % Lymphocytes 2.7 % (20.5-51.1); % Monocytes 7.2 % (1.7-9.3); % Neutrophils 88.6 % (42.2-75.2); Absolute Immature Granulocytes 0.1 10^3/uL (0-0.05); Absolute Lymphocytes 0.3 10^3/uL (1.2-3.4); Absolute Monocytes 0.7 10^3/uL (0.1-0.6); Absolute Neutrophils 8.6 10^3/uL (1.4-6.5); Hematocrit 21.4 % (37.0-47.0); Hemoglobin 7.1 g/dL (12.0-16.0); Mean Corp Hgb Conc. 33.2 g/dL (33.0-37.0); Mean Corpuscular Volume 87.3 fL (81.0-99.0); Mean Platelet Volume 11.9 fL (7.4-10.4); Nucleated Red Blood Cells % 0 %; Platelet Count 102 10^3/uL (130-400); Red Blood Cell Count 2.45 10^6/uL (4.20-5.40); Red Cell Dist. Width 22.3 % (11.5-14.5); White Blood Cell Count 9.7 10^3/uL (4.8-10.8)
[2023-09-18 07:42] LABS: INR 1.12; PT 14.4 Sec (11.4-14.6)
[2023-09-18 08:17] LABS: Blood Urea Nitrogen 64 mg/dl (7-17); Calcium 6.9 mg/dl (8.4-10.2); Carbon Dioxide 19 mmol/L (22-30); Chloride 94 mmol/L (98-107); Estimated Creatinine Clearance 10 ml/min; Glucose 106 mg/dl (70-99); Potassium 4.1 mmol/L (3.5-5.1); Sodium 129 mmol/L (135-145); eGFR 9.06
[2023-09-18 08:24] LABS: Vitamin D, 25-OH*** 15.3 ng/mL (30-80)
--- NOTE | 2023-09-18 09:18 | W.PN.ONC ---
Addendum entered and electronically signed by Cristian Harris MD 09/18/23 15:39:
Hematology/Oncology Addendum:
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
-breast cancer - ER negative
-anemia - thrombocytopenia
-QUINTON/ bilateral hydronephrosis - percutaneous nephrostomy
-outpt f/u to be arranged
Will continue to follow with you.
Original Note:
Today's Communication / Plan
-
09/14 EGD biopsies of stomach: Invasive carcinoma consistent with breast origin involving gastric mucosa
09/16 WBC 9.7, Hgb 7.1, Hct 21.4, PLT 102
CBC w/ diff daily, monitor for bleeding
Transfuse as needed to maintain Hgb >7, PLT >20 (or >50 with active bleeding)
09/16 Creat 5.0
[facility] for bilateral PCN today
GI, Nephrology, Urology following
Supportive care, pain management
PT/OT, OOB activity encouraged
Case management following - hospital bed via [facility] and [facility] ordered
[place] plans to begin Taxane chemotherapy once improvement of acute medical issues and performance status. She is tentatively scheduled next week Thursday, 09/21 to begin treatment. She will need outpatient port placement. Contacted [facility] regarding
scheduling patient; they have orders. patient to schedule with them once discharged. Office updated of clinical status. We will follow.
Impression
Impression
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
GI bleeding
Iron deficiency
Presacral lesion
Bilateral hydronephrosis w/ QUINTON
Acute anemia - gastritis/bleeding noted on EGD
Recent episode of hematemesis
Chronic thrombocytopenia, suspected ITP
Urinary incontinence
Bone pain
Subjective/Objective
Subjective/Objective
Patient is resting in bed. She report she is significantly weak. She is working with PT to the best of her ability. She reports very poor appetite and nausea. She is going for bilateral PCN today.
Vital Signs:
Vital Signs
Temp Pulse Resp BP Pulse Ox
98.2 F 106 19 99/62 96
09/18/23 07:30 09/18/23 07:30 09/18/23 07:30 09/18/23 07:30 09/18/23 07:30
physical exam unchanged.
aaox3, chronically ill appearing
Lab Results:
Laboratory Data
WBC 9.7 10^3/uL (4.8-10.8) 09/18/23 07:02
Hgb 7.1 g/dL (12.0-16.0) L 09/18/23 07:02
Plt Count 102 10^3/uL (130-400) L D 09/18/23 07:02
PT 14.4 Sec (11.4-14.6) 09/18/23 07:02
INR 1.12 09/18/23 07:02
eGFR 9.06 09/18/23 07:02
09/17/23 CT abdomen/pelvis: Mild bilateral hydronephrosis. No renal or ureteral calculi identified. There is wall thickening of the urinary bladder which may be related to prior radiation therapy. Bladder is relatively underdistended and evaluation
is limited on noncontrast examination.Progression of metastatic disease as above. Multiple low-attenuation foci within the liver suspicious for metastases. Retroperitoneal lymphadenopathy consistent with metastasis. Small pericolonic probable
metastatic deposits. Small nodules adjacent to the right kidney probably related to metastasis. Left pelvic sidewall abnormal soft tissue attenuation related to either metastasis or post radiation change as seen prior. Presacral soft tissue
attenuation thickening probably related to radiation change Minimal right pleural effusion. Small left pleural effusion with adjacent atelectasis/consolidation. Liquid stool throughout the colon. No obstruction. Unchanged incidental duodenal
lipoma. Widespread osseous metastases as seen prior.Anasarca.
[2023-09-18] MEDS: PROTONIX IV 40 MG IV ×2 (09:27→21:38)
[2023-09-18] MEDS: NSS (PRESERVATIVE FREE) 10 ML IV ×2 (09:27→21:38)
[2023-09-18] MEDS: DIFLUCAN 200 MG PO (09:27)
[2023-09-18] MEDS: SODIUM BICARBONATE 650 MG PO ×2 (09:27→17:50)
[2023-09-18] MEDS: VITAMIN B-12 1000 MCG PO (09:27)
[2023-09-18] MEDS: FEOSOL 325 MG PO (09:27)
[2023-09-18] MEDS: CYMBALTA DELAYED RELEASE 30 MG PO (09:27)
[2023-09-18] MEDS: MIRALAX PO (09:31)
[2023-09-18] MEDS: DILAUDID 0.5 MG IV ×2 (09:41→19:27)
[2023-09-18] MEDS: TYLENOL 650 MG PO ×2 (09:41→19:26)
[2023-09-18] MEDS: CALCIUM GLUCONATE 100 IV (09:47)
--- NOTE | 2023-09-18 12:30 | W.PN.HOSP.TC ---
Today's Communication/Plan
-
PRBC transfusion today
[facility] for nephrostomy tube placement
Trend creatinine
Pain control
Assessment / Plan
Assessment / Plan
Acute on Chronic Anemia likely secondary to upper GI bleed in setting of thrombocytopenia
-Hemoglobin 7.1. Will order additional unit of PRBC
-Trend Hgb
-Status post endoscopy showing normal esophagus. Right foot retained and removed. Mucosal changes suspicious for gastritis with hemorrhage. Status post treatment with APC. Gastric biopsy lesion positive for Invasive carcinoma consistent with
breast origin involving gastric mucosa
-Started on low residue diet
-GI recs. d/w with GI okay for PPI BID. DC gtt.
Bicytopenia (anemia thrombocytopenia) likely secondary to chemotherapy
-Transfuse for hemoglobin less than 7.
-Trend CBC daily. Reticulocyte count elevated likely in the setting of severe anemia
Acute Kidney Injury likely post renal with concern for ureter obstruction 2/2 cancer
Severe metabolic acidosis
Chronic hyponatremia
-Prior imaging showed some left hydronephrosis related presacral mass
-Monitor bladder scans
-Patient finally agreed for CAT scan today after refusing for 2 days.
-CT abd/pelvis w/o contrast noted. d/w with urology/[facility] consulted for Percutaneous tubes. NPO PMN.
-Check urine studies-with [facility]NA
-Received normal saline and bicarbonate drip. Sodium was not will DC hypotonic saline. Continue with p.o. bicarbonate
-Bladder scan protocol
-Defer IV fluids to nephrology.
-d/w with [facility] and urology-plan for percutaneous nephrostomy tube. N.p.o. for the procedure.
Constipation
-Bowel regimen added per GI
Hypocalcemia/vitamin D deficiency
Give IV calcium and start vitamin D supplementation for now
Transaminitis likely secondary to chemotherapy
-Trend for now
Recent Candidiasis Esophagitis
-Continue Fluconazole and completed regimen with last dose today.
Metastatic Breast Cancer with new Presacral Soft Tissue Mass, with the lung lesion concerning for metastases, pericolonic probable metastatic deposit. Small nodule adjacent right kidney probably related to metastasis. Widespread osseous metastases
seen
-Consult Hematology
-Pain control with p.o. and IV regimen.
-Follows with Dr. Jacobson
Anxiety/Depression
-Continue alprazolam, duloxetine and sertraline
DVT proph: SCDs in the setting of GI bleeding
Code Status: Full Code
D/W with urology.
Long-term prognosis poor
Anticipated Discharge: > 48 hours
Subjective/Interval History
-
Date of Service: September 18, 2023
States of severe back pain
agreeable for perc nephro tubes
Objective Data
-
Labs:
Laboratory Results
09/18/23
07:02
WBC 9.7
Hgb 7.1 L
Hct 21.4 L
Plt Count 102 L D
PT 14.4
INR 1.12
Sodium 129 L
Potassium 4.1
Chloride 94 L
Carbon Dioxide 19 L
BUN 64 H
Creatinine 5.0 H*
Glucose 106 H
Calcium 6.9 L*
Vital Signs:
Vital Signs
Temp Pulse Resp BP Pulse Ox
98.3 F 109 16 97/59 97
09/18/23 12:20 09/18/23 12:20 09/18/23 12:20 09/18/23 12:20 09/18/23 11:00
I&O
09/17/23 09/18/23 09/19/23
06:59 06:59 06:59
Intake Total 960 / 960 990 / 990 0 / 0
Balance 960 / 960 990 / 990 0 / 0
Physical Exam
-
General: Well Developed and No Apparent Distress
HEENT: Normocephalic, Atraumatic and Moist Mucous Membranes
Respiratory: Clear to Auscultation
Cardiac: Regular Rhythm and S1/S2; Negative Murmur, Rub or Gallop
GI: Soft, Nontender, Nondistended and Normal Bowel Sounds; Negative Organomegaly
Rectal: Deferred by Provider
Musculoskeletal: No Clubbing, No Cyanosis and No Edema
Skin: Negative Rash
Neuro: Awake and Nonfocal/Grossly Intact
Psych: Calm
Data Reviewed
-
Total Time Spent with Patient (in minutes): 58
--- NOTE | 2023-09-18 13:05 | W.PN.URO.CBU ---
Today's Communication / Plan
-
to [facility] when ready
Assessment / Plan
-
POSSIBLE OBSTRUCTIVE UROPATHY DU TO PRESACRAL BREAST CANCER MET. NO STONES. creatinine up again to 4.5 CT SCAN now 5 bilateral hydro for n bilateral pec tubes today
Diagnosis
-
Date of Service: September 18, 2023
-
Patient Diagnosis:
Post Op Day:
Patient Diagnosis:
Post Op Day:
Patient Diagnosis:bilateral hydro with QUINTON and creatinine 1.9 to 3.2 in 2 days had u/s that showed left more than rt hydro but compared to cat scan month ago with nl creatinine. [place] is stable bladder empty no jets on u/s pt asx Has
metastatic to bone and soft tissue breast cancer and met to presacral area no nodes on pelvis Today increased creatinine Creatininme up for bilateral perc tubes today
Post Op Day:
Subjective
-
feels well
Objective
-
Vital Signs
Temp Pulse Resp BP Pulse Ox
98.3 F 109 16 97/59 97
09/18/23 12:20 09/18/23 12:20 09/18/23 12:20 09/18/23 12:20 09/18/23 11:00
Intake and Output
09/17/23 09/18/23 09/19/23
06:59 06:59 06:59
Intake Total 960 / 960 990 / 990 0 / 0
Balance 960 / 960 990 / 990 0 / 0
Intake:
Oral fluids 960 / 960 990 / 990
Blood Product Amount Infused ( 0 / 0
mL)
Packed Rbc Leukoreduced Unit 0 / 0
[id number]
Other:
Number of approximated MODERATE 3 2
amounts of urine
Laboratory Results
09/18/23 07:02
04/12/24 07:02
Review of Systems
-
: No Symptoms
Physical Exam
-
General - cachectic
Chest - clear bilaterally
Abdomen - soft, non-tender, positive bowel sounds, no CVAT, no incisional pain or distention
Genitalia - normal
Rectal - normal
Skin - warm & dry with no rash
Neuro - AOx3, no motor deficits
Extremities - no clubbing, no cyanosis, no edema
Incision - clean, dry
Dressing - clean, dry, intact
Care Review
Data Reviewed
Discussed with: Hospitalist and [facility]
CT Scan: Image Pers Reviewed
[2023-09-18] MEDS: ANCEF 10 IV (14:28)
--- NOTE | 2023-09-18 14:47 | W.PN.NEPH.PH ---
Today's Communication / Plan
-
- repletion of Ca, Vitamin D
- trend BMPs
- perc neph today
Assessment/Plan
-
Assessment
-metastatic breast CA to sacral area/abdomen/stomach-09/14 gastric bx c/w breast CA
-QUINTON
-bilateral hydronephrosis
-hyponatremia
-metabolic acidosis
-anxiety/depression
-anemia
Plan
QUINTON-cr increasing still at 5 from obst uropathy
plan for bilateral PCN today - on board
met acidosis is better, will add po bicarb
no IVF at this time
hyponatremia is better post sasmca, U osmo high 319
FR 48oz
Calcium & ical low at 6.9 -- repletion per primary
vit D low -- initiated on repletion per primary
c/o left thigh edema - consider imaging per primary team
Dr Simeon on 09/15-d/w pat potential of worsening kidney function. asked her to think about what she would want if her kidneys failed. I told her i would not recommend dialysis given her current [place] state and poor QoL with dialysis
-
-
Date of Service: September 18, 2023
CC / HPI / ROS
-
Chief Complaint:
QUINTON, hyponatremia
History of Present Illness:
cr is up at 5, k normal
bicarb 19 low
BP stable
mumtaz at 6.9 repletion in process
Review of Systems:
no cp or sob
feels little puffy
c/o left thigh edema with out pain
poor appetite
Labs
-
Labs:
WBC 9.7 10^3/uL (4.8-10.8) 09/18/23 07:02
RBC 2.45 10^6/uL (4.20-5.40) L 09/18/23 07:02
Hgb 7.1 g/dL (12.0-16.0) L 09/18/23 07:02
Hct 21.4 % (37.0-47.0) L 09/18/23 07:02
Plt Count 102 10^3/uL (130-400) L D 09/18/23 07:02
Sodium 129 mmol/L (135-145) L 09/18/23 07:02
Potassium 4.1 mmol/L (3.5-5.1) 09/18/23 07:02
Chloride 94 mmol/L (98-107) L 09/18/23 07:02
Carbon Dioxide 19 mmol/L (22-30) L 09/18/23 07:02
BUN 64 mg/dl (7-17) H 09/18/23 07:02
Creatinine 5.0 mg/dL (0.6-1.0) H* 09/18/23 07:02
eGFR 9.06 09/18/23 07:02
Glucose 106 mg/dl (70-99) H 09/18/23 07:02
Calcium 6.9 mg/dl (8.4-10.2) L* 09/18/23 07:02
Albumin 3.2 g/dl (3.5-5.0) L 09/14/23 11:33
Physical Exam
-
Vital Signs:
Vital Signs
Temp Pulse Resp BP Pulse Ox
98.1 F 104 13 107/65 99
09/18/23 13:40 09/18/23 13:40 09/18/23 13:40 09/18/23 13:40 09/18/23 13:40
Cardiovascular:: Regular rate and rhythm
Respiratory:: Bilateral: Coarse
Lung Excursion:: Normal
Abdomen:: Nontender and Soft
Bowel Sounds:: Normal
Extremity Edema:: +2: Left: (thigh edema) and None: Right:
Morgan Catheter: No
--- NOTE | 2023-09-18 15:06 | CM ---
payroll manager reached out to [facility] to check on bed for patient in home, and per Leena at [facility] they attempted to deliver bed today however without patient being home they were unable to deliver bed. Per [facility] they will need to make new arrangements
for deliver.
Plan; Patient to return to home when stable with hospital bed from [facility].
--- NOTE | 2023-09-18 15:48 | VNURNOTE ---
Home Health Liaison met with patient at 1140 to discuss [facility] nurse/therapy, visits, schedule and homebound status. Patient is agreeable and understands that visits at home will be 2-3 x per week to assess and teach medical management. Patient was
drowsy during visit but receptive, stated she had just received pain medication. Patient is expecting PCN placement later today and understands [facility] would teach care related.
[facility] brochure provided with contact information. Patient is aware that [facility] will contact her for start of care in 1-2 days after discharge from .
[facility] referral completed in [facility].
--- NOTE | 2023-09-18 16:11 | PTCARENOTE ---
Blood transfusion completed in IR. Completion reconciled in [facility].
--- NOTE | 2023-09-18 18:19 | PTCARENOTE ---
Patient returning to unit with b/l nephrostomy tubes. Dressings CDI.
[2023-09-18] MEDS: SODIUM BICARBONATE PO ×2 (21:38→21:43)
[2023-09-18] MEDS: ZOLOFT PO ×2 (21:38→21:41)
[2023-09-19] VITALS (10 sets, daily range): BP systolic 96–120; BP diastolic 60–77; BMI 22.0
[2023-09-19] MEDS: DILAUDID 0.5 MG IV ×2 (00:54→07:36)
[2023-09-19] MEDS: DILAUDID 1 MG IV ×4 (04:10→20:30)
[2023-09-19 07:00] LABS: % Basophils 0.2 % (0-2); % Eosinophils 0.4 % (0-6); % Lymphocytes 2.5 % (20.5-51.1); % Monocytes 8.6 % (1.7-9.3); % Neutrophils 87.3 % (42.2-75.2); Absolute Immature Granulocytes 0.1 10^3/uL (0-0.05); Absolute Lymphocytes 0.2 10^3/uL (1.2-3.4); Absolute Monocytes 0.7 10^3/uL (0.1-0.6); Absolute Neutrophils 7.1 10^3/uL (1.4-6.5); Hematocrit 24.7 % (37.0-47.0); Hemoglobin 8.2 g/dL (12.0-16.0); Mean Corp Hgb Conc. 33.2 g/dL (33.0-37.0); Mean Corpuscular Hgb 29.4 pg (27.0-31.0); Mean Corpuscular Volume 88.5 fL (81.0-99.0); Mean Platelet Volume 12.2 fL (7.4-10.4); Nucleated Red Blood Cells % 0 %; Platelet Count 94 10^3/uL (130-400); Red Blood Cell Count 2.79 10^6/uL (4.20-5.40); Red Cell Dist. Width 19.6 % (11.5-14.5); White Blood Cell Count 8.1 10^3/uL (4.8-10.8)
[2023-09-19 07:21] LABS: Blood Urea Nitrogen 50 mg/dl (7-17); Calcium 7.7 mg/dl (8.4-10.2); Carbon Dioxide 26 mmol/L (22-30); Chloride 97 mmol/L (98-107); Estimated Creatinine Clearance 20 ml/min; Glucose 105 mg/dl (70-99); Potassium 3.6 mmol/L (3.5-5.1); Sodium 131 mmol/L (135-145); eGFR 21.87
[2023-09-19] MEDS: MIRALAX PO (09:16)
[2023-09-19] MEDS: SODIUM BICARBONATE 650 MG PO (10:39)
[2023-09-19] MEDS: FEOSOL 325 MG PO (10:39)
[2023-09-19] MEDS: CYMBALTA DELAYED RELEASE 30 MG PO (10:40)
[2023-09-19] MEDS: VITAMIN D3 (cholecalciferol) 125 MCG PO (10:40)
[2023-09-19] MEDS: NSS (PRESERVATIVE FREE) 10 ML IV (10:40)
[2023-09-19] MEDS: PROTONIX IV 40 MG IV (10:40)
[2023-09-19] MEDS: VITAMIN B-12 1000 MCG PO (10:40)
--- NOTE | 2023-09-19 11:40 | W.PN.HOSP.TC ---
Today's Communication/Plan
-
Nephrology and urology recommendation
Trend creatinine
Pain control
Assessment / Plan
Assessment / Plan
Acute on Chronic Anemia likely secondary to upper GI bleed in setting of thrombocytopenia
-Hemoglobin 8.2. Status post 2 units of PRBC.
-Trend Hgb
-Status post endoscopy showing normal esophagus. Right foot retained and removed. Mucosal changes suspicious for gastritis with hemorrhage. Status post treatment with APC. Gastric biopsy lesion positive for Invasive carcinoma consistent with
breast origin involving gastric mucosa. Patient was informed of results.
-Started on low residue diet
-GI recs. d/w with GI okay for PPI BID. DC gtt.
Bicytopenia (anemia thrombocytopenia) likely secondary to chemotherapy
-Transfuse for hemoglobin less than 7.
-Trend CBC daily. Reticulocyte count elevated likely in the setting of severe anemia
Acute Kidney Injury likely post renal with concern for ureter obstruction 2/2 cancer
Severe metabolic acidosis
Chronic hyponatremia
-Prior imaging showed some left hydronephrosis related presacral mass
-Monitor bladder scans
-Patient finally agreed for CAT scan today after refusing for [address] abd/pelvis w/o contrast noted.
-Check urine studies-with [facility]
-Received normal saline and bicarbonate drip. Sodium was not will DC hypotonic saline. Continue with p.o. bicarbonate
-Bladder scan protocol
-Defer IV fluids to nephrology.
-Status post bilateral percutaneous nephrostomy tube. Improvement in creatinine today.
Constipation
-Bowel regimen added per GI
Hypocalcemia/vitamin D deficiency
Give IV calcium and start vitamin D supplementation for now
Transaminitis likely secondary to chemotherapy
-Trend for now
Recent Candidiasis Esophagitis
-Completed fluconazole therapy.
Metastatic Breast Cancer with new Presacral Soft Tissue Mass, with the lung lesion concerning for metastases, pericolonic probable metastatic deposit. Small nodule adjacent right kidney probably related to metastasis. Widespread osseous metastases
seen
-Consult Hematology
-Pain control with p.o. and IV regimen.
-Patient remains with persistent severe pain. Will start patient on MS Contin 3 times daily and IV Dilaudid. Probably will require significant pain control upon discharge.
-Follows with Dr. Jacobson
Anxiety/Depression
-Continue alprazolam, duloxetine and sertraline
DVT proph: SCDs in the setting of GI bleeding
Code Status: Full Code
Long-term prognosis poor
Anticipated Discharge: > 48 hours
Subjective/Interval History
-
Date of Service: September 19, 2023
states of back pain
Objective Data
-
Labs:
Laboratory Results
09/19/23 09/19/23
06:07 06:08
WBC 8.1
Hgb 8.2 L
Hct 24.7 L
Plt Count 94 L
Sodium 131 L
Potassium 3.6
Chloride 97 L
Carbon Dioxide 26
BUN 50 H
Creatinine 2.4 H
Glucose 105 H
Calcium 7.7 L
Vital Signs:
Vital Signs
Temp Pulse Resp BP Pulse Ox
97.6 F 104 18 104/69 97
09/19/23 08:36 09/19/23 08:36 09/19/23 08:36 09/19/23 08:36 09/19/23 08:36
I&O
09/18/23 09/19/23 09/20/23
06:59 06:59 06:59
Intake Total 990 / 990 1070 / 1070
Output Total 1350 / 1350
Balance 990 / 990 -280 / -280
Physical Exam
-
General: Well Developed and No Apparent Distress
HEENT: Normocephalic, Atraumatic and Moist Mucous Membranes
Respiratory: Clear to Auscultation
Cardiac: Regular Rhythm and S1/S2; Negative Murmur, Rub or Gallop
GI: Soft, Nontender, Nondistended and Normal Bowel Sounds; Negative Organomegaly
Rectal: Deferred by Provider
Genito-urinary: Nephrostomy Tubes
Musculoskeletal: No Clubbing, No Cyanosis and No Edema
Skin: Negative Rash
Neuro: Awake and Nonfocal/Grossly Intact
Psych: Calm
Data Reviewed
-
Total Time Spent with Patient (in minutes): 58
--- NOTE | 2023-09-19 12:43 | PTCARENOTE ---
Patient assisted in to bathroom by RN, pt instructed to pull cord when done. Patient reported to be on ground in bathroom by [facility] staff. Patient found on ground in front of toilet. Patient reports slipping on floor when attempting to stand up.
Patient reports hitting L side of head on bathroom door. On exam, ronnie prominences noted on either side of skull, patient reports these as baseline. Patient reports pain is at baseline, chronic in nature--No new or increased pain reported. Patient
able to move all limbs. B/L nephrostomy tubes intact. Small laceration noted to L flank, area cleansed and dressed. Neuro check appropriate post fall. VSS. Patient assisted back to bed by staff. Bathroom pull cord was functional but not pulled. No
slip socks were on at time of fall. Patient instructed on no attempting to stand or get OOB without assistance. Patient agreeable.
--- NOTE | 2023-09-19 13:30 | W.PN.UPDATE ---
Addendum entered and electronically signed by Laron Fletcher MD 09/19/23 15:01:
Also discussed with nursing to have overnight RN discus results of CT head with overnight RIPSAW GRADER/PA.
Addendum entered and electronically signed by Laron Fletcher MD 09/19/23 14:35:
Patient CT had resulted The ventricles are normal in size, configuration, and position for age. Trace left cerebral convexity subdural hematoma measuring up to 3 mm in thickness. No areas of abnormal mass effect or herniation are noted. Visualized
paranasal sinuses are free of mucosal disease. No depressed calvarial fracture. Mild left-sided scalp swelling.
Patient is currently resting in bed. Patient states of chronic back pain. Patient without any visual problems. Patient any numbing or tingling. Able to move all 4 extremities. No vision problems. Watching TV. No focal deficit noted. Patient
was informed of the CAT scan results. Patient will be placed on bedrest for 24 hours and fall precautions already been implemented. Will order 1 unit of platelets. Stroke scale and NIH has been ordered. Neurological checks ordered. Discussed
case with neurology and consultation placed. Per discussion with neurology and agree, due to trace size of bleeding 3mm can hold off on consulting neurosurgery for now. Repeat CT head 6 hours time will be also ordered. Discussed plan with patient
and RN.
Original Note:
Update Note
Progress Note Update
Pt had fall earlier. States of leg giving away. Remains with pain in legs. States hit her head. No headache or vision problem. No TTP. No marly bump noted. Agreed for CT head w/o contrast. d/w with RN.
--- NOTE | 2023-09-19 14:27 | W.PN.NEPH.PH ---
Today's Communication / Plan
-
- stop PO bicarb
- trend Cr
Assessment/Plan
-
Assessment
-metastatic breast CA to sacral area/abdomen/stomach-09/14 gastric bx c/w breast CA
-QUINTON
-bilateral hydronephrosis
-hyponatremia
-metabolic acidosis
-anxiety/depression
-anemia
Plan
QUINTON-Cr improving after PCN placement. 5 --> 2.4
met acidosis is better, stop PO bicarb
no IVF at this time
hyponatremia is better post sasmca, likely will have some post obstructive diuresis. watch for hypernatremia
FR 48oz
Calcium & ical low at 7.7-- repletion per primary
vit D low -- initiated on repletion per primary
c/o left thigh edema - consider imaging per primary team
Dr Simeon on 09/15-d/w pat potential of worsening kidney function. asked her to think about what she would want if her kidneys failed. I told her i would not recommend dialysis given her current [place] state and poor QoL with dialysis
-
-
Date of Service: September 19, 2023
CC / HPI / ROS
-
Chief Complaint:
QUINTON, hyponatremia
History of Present Illness:
Cr improved to 2.4 (peak 5)
bicarb normal at 26, off bicarb tabs
BP stable
mumtaz at 7.7, repletion per primary
Review of Systems:
no cp or sob
feels little puffy
c/o left thigh edema with out pain
poor appetite
Labs
-
Labs:
WBC 8.1 10^3/uL (4.8-10.8) 09/19/23 06:07
RBC 2.79 10^6/uL (4.20-5.40) L 09/19/23 06:07
Hgb 8.2 g/dL (12.0-16.0) L 09/19/23 06:07
Hct 24.7 % (37.0-47.0) L 09/19/23 06:07
Plt Count 94 10^3/uL (130-400) L 09/19/23 06:07
Sodium 131 mmol/L (135-145) L 09/19/23 06:08
Potassium 3.6 mmol/L (3.5-5.1) 09/19/23 06:08
Chloride 97 mmol/L (98-107) L 09/19/23 06:08
Carbon Dioxide 26 mmol/L (22-30) 09/19/23 06:08
BUN 50 mg/dl (7-17) H 09/19/23 06:08
Creatinine 2.4 mg/dL (0.6-1.0) H 09/19/23 06:08
eGFR 21.87 09/19/23 06:08
Glucose 105 mg/dl (70-99) H 09/19/23 06:08
Calcium 7.7 mg/dl (8.4-10.2) L 09/19/23 06:08
Albumin 3.2 g/dl (3.5-5.0) L 09/14/23 11:33
Physical Exam
-
Vital Signs:
Vital Signs
Temp Pulse Resp BP Pulse Ox
97.8 F 108 18 120/77 98
09/19/23 12:06 09/19/23 12:20 09/19/23 12:20 09/19/23 12:20 09/19/23 12:20
Cardiovascular:: Regular rate and rhythm
Respiratory:: Bilateral: CTA
Lung Excursion:: Normal
Abdomen:: Nontender and Soft
Bowel Sounds:: Normal
Extremity Edema:: +1: Bilateral:
Morgan Catheter: No
Other Findings::
PCN tubes with hematuria
--- NOTE | 2023-09-19 15:00 | PTCARENOTE ---
NIH preformed on patient per MD order. NIH of 1, due to very mild LLE weakness. Patient states this as baseline for past two years r/t chronic L hip/back pain that radiates down her LLE. Patient was able to hold LLE off bed for 5 seconds without
drift with some effort. Dr. Conn and Dr. Fletcher updated.
--- NOTE | 2023-09-19 15:09 | CON.NEURO4 ---
Addendum entered and electronically signed by Omega Conn MD 09/20/23 07:49:
Additionally maintain systolic blood pressure < 140 which she has been ate with little to no hypertension recently
Original Note:
Consultation - Neurology 4
-
CONSULTING PHYSICIAN: Ceasar Conn
REFERRING PHYSICIAN: Hospitalist
DICTATED BY: Ceasar Conn
DATE/TIME OF REQUEST: 09/19/23
DATE/TIME OF CONSULTATION: 09/19/23
Reason for Consultation: Subdural hematoma
History of Present Illness:
Patient is a 63-year-old woman with a past medical history of metastatic breast cancer presented to hospital with significant generalized weakness and lethargy and was found to have severe anemia. She had had a fall earlier with mostly leg pain
but this prompted CT head noncontrast which found a left-sided subdural hematoma. Patient this time denies any headache and no nausea. No vision changes. No unilateral weakness or paresthesia. No seizures or loss of consiousness. Patient does not
have any history of any recent trauma besides a recent fall here in the hospital. Platelet count this morning was 94 she has had some chronic thrombocytopenia. No history of brain issues no history of stroke or seizure or TIA to her knowledge.
Past Medical History: Metastatic breast cancer, cauda equina syndrome secondary to bone metastases, chronic anemia
Surgical History: Bilateral mastectomy
Family History: Reviewed and noncontributory
Social History: Lives alone at this time, no drug or alcohol use former tobacco use
Review of Symptoms:
Patient denies any fever, headache, chest pain, shortness of breath, GI or symptoms.
Physical Exam:
Middle-aged woman appears in no distress with no signs of head or neck trauma neck supple full range of motion no meningismus oropharynx clear eyes clear with no hematoma seen on the face or head, heart rate regular breathing unlabored abdomen soft
nontender no lower extremity edema seen, skin is pale
Neurologic Examination:
The patient is awake, alert and oriented x 3. She is able to follow commands and answer questions appropriately. There is no aphasia or dysarthria. On cranial nerve assessment, pupils are 3 mm bilateral, round and reactive to light and
accommodation. Visual herring are full. Extraocular movements are intact. Facial sensations are intact and bilaterally symmetrical, there is no facial asymmetry. Hearing is intact bilaterally to normal conversation volume. Tongue palate and uvula
are midline. Sternocleidomastoid strengths are full bilaterally. Motor strengths are 5/5 bilateral upper and lower extremities on medical research [place] scale. There is no drift or involuntary movement noted. Deep tendon reflexes are 2+ bilateral
upper and lower extremities and Babinski is absent bilaterally. Intact light touch bilaterally in upper and lower extremity. Coordination is intact by finger to nose bilaterally.
Imaging:
CT head noncontrast shows a an acute small left-sided subdural hematoma with no midline shift or mass effect, approximately 3 mm in thickness. No areas of intraventricular blood, no signs of acute infarct.
Impressions
Small 3 mm left-sided subdural hematoma, probably traumatic due to fall on top of mild thrombocytopenia. Normal mental status and no headache or signs of increased intracranial pressure at this time.
Recommendations:
1. Recommend transfusion of 1 unit of platelets for now would aim for goal of greater than 100,000, as her clinical course and imaging progresses we will continue to address how aggressive her goals for platelet count should be
2. Neurologic checks and NIH stroke scales
3. Monitor for nausea and vomiting
4. Goal normal natremia
5. Hold any antithrombotics antiplatelets and heparin for DVT prophylaxis
6. Would avoid IV sedating medications if possible
7. Not recommending any antiseizure medication prophylaxis at this time
8. Repeat CT head non contrast at 6 and 24 hours after the initial study
9. No indications for neurosurgical consultation at this time given the very small size of the subdural hematoma would not be operative
Will follow
Discussed patient care with: Patient and hospitalist
[2023-09-19] MEDS: MS CONTIN (EXTENDED RELEASE) 15 MG PO (15:49)
[2023-09-19] MEDS: SENOKOT-S PO ×2 (19:55→20:14)
[2023-09-19] MEDS: PROTONIX 40 MG PO (19:55)
[2023-09-19] MEDS: ZOLOFT PO (21:02)
--- NOTE | 2023-09-19 22:58 | W.PN.UPDATE ---
Update Note
Progress Note Update
RN notified [employer] of latest CT Head results, which reads stable trace bilateral subdural hematomas. No new changes in NIH, stable VS. Neurologist Dr. Rao made aware. Advised of CT scan tomorrow and labs in AM. Will closely monitor. RN made aware.
[2023-09-19] MEDS: MS CONTIN (EXTENDED RELEASE) PO (23:06)
[2023-09-20] VITALS (8 sets, daily range): BP systolic 102–119; BP diastolic 61–76; BMI 22.1
[2023-09-20] MEDS: DILAUDID 1 MG IV ×3 (01:43→10:09)
[2023-09-20 06:52] LABS: % Basophils 0.3 % (0-2); % Eosinophils 0.2 % (0-6); % Immature Granulocytes 1.1 % (0-0.5); % Lymphocytes 2.6 % (20.5-51.1); % Monocytes 7.3 % (1.7-9.3); % Neutrophils 88.5 % (42.2-75.2); Absolute Immature Granulocytes 0.1 10^3/uL (0-0.05); Absolute Lymphocytes 0.3 10^3/uL (1.2-3.4); Absolute Monocytes 0.7 10^3/uL (0.1-0.6); Absolute Neutrophils 8.6 10^3/uL (1.4-6.5); Hematocrit 25.3 % (37.0-47.0); Hemoglobin 8.4 g/dL (12.0-16.0); Mean Corp Hgb Conc. 33.2 g/dL (33.0-37.0); Mean Corpuscular Hgb 29.6 pg (27.0-31.0); Mean Corpuscular Volume 89.1 fL (81.0-99.0); Mean Platelet Volume 11.2 fL (7.4-10.4); Nucleated Red Blood Cells % 0 %; Platelet Count 130 10^3/uL (130-400); Red Blood Cell Count 2.84 10^6/uL (4.20-5.40); White Blood Cell Count 9.7 10^3/uL (4.8-10.8)
[2023-09-20 07:19] LABS: Blood Urea Nitrogen 31 mg/dl (7-17); Calcium 8.5 mg/dl (8.4-10.2); Carbon Dioxide 24 mmol/L (22-30); Chloride 98 mmol/L (98-107); Estimated Creatinine Clearance 69 ml/min; Glucose 97 mg/dl (70-99); Potassium 3.9 mmol/L (3.5-5.1); Sodium 130 mmol/L (135-145); eGFR > 60.00
[2023-09-20] MEDS: SENOKOT-S 1 TABLET PO ×2 (08:56→20:11)
[2023-09-20] MEDS: CYMBALTA DELAYED RELEASE 30 MG PO (08:56)
[2023-09-20] MEDS: FEOSOL 325 MG PO (08:56)
[2023-09-20] MEDS: MS CONTIN (EXTENDED RELEASE) 15 MG PO ×2 (08:56→15:59)
[2023-09-20] MEDS: VITAMIN D3 (cholecalciferol) 125 MCG PO (08:57)
[2023-09-20] MEDS: VITAMIN B-12 1000 MCG PO (08:57)
[2023-09-20] MEDS: PROTONIX 40 MG PO ×2 (08:58→20:11)
[2023-09-20] MEDS: MIRALAX PO (09:16)
--- NOTE | 2023-09-20 10:47 | W.PN.NEURO.1 ---
Today's Communication / Plan
-
-Neurologic checks and NIH scales
-Systolic blood pressure goal less than 140, labetalol PRN, meeting BP's goals easily
-Check CT head non contrast at the 24 hour axel and if stable monitor clinically
-Judicious use of sedating medications
-Continue to follow platelets, ideally platelet goal more than 100k in the acute setting of subdural hematoma
-Hold any heparin DVT prophylaxis and all antithrombotics
Will follow
Neuro Assessment/Plan
Assessment
63 year old woman with history of metastatic breast cancer presented to hospital with generalized weakness, significant anemia
Had fall while in hospital and CT head showed left sided subdural hematoma about 3mm, patient asymptomatic from this
Repeat CT head 6 hours later showed largely stable study, probably some right sided dural thickening or possibly a small right sided subdural hematoma seen that had been present on the first study
Thus far no worrisome changes on CT head non contrast or on neurologic exam
Traumatic subdural hematoma
Does have chronic thrombocytopenia, received 1 unit platelets 09/18 given acute subdural hematoma and platelet count beneat 100k
Subjective/Objective
Subjective Data
Date of Service: September 20, 2023
No acute events, patient denies headache, nausea/vomiting, or speech difficulty
Objective Data
Vital Signs
Temp Pulse Resp BP Pulse Ox
97.9 F 110 12 106/72 100
09/20/23 07:15 09/20/23 07:15 09/20/23 07:15 09/20/23 07:15 09/20/23 07:15
Lab Results
09/20/23 06:16
09/20/23 06:16
PT 14.4 Sec (11.4-14.6) 09/18/23 07:02
INR 1.12 09/18/23 07:02
Sodium 130 mmol/L (135-145) L 09/20/23 06:16
Potassium 3.9 mmol/L (3.5-5.1) 09/20/23 06:16
BUN 31 mg/dl (7-17) H 09/20/23 06:16
Glucose 97 mg/dl (70-99) 09/20/23 06:16
Calcium 8.5 mg/dl (8.4-10.2) 09/20/23 06:16
Patient Allergies
bupropion [From Wellbutrin] Allergy (Verified 09/14/23 10:42)
Patient states she lost a lot of weight on.
codeine Allergy (Verified 09/14/23 10:42)
'makes her ill'
Iodinated Contrast Media Allergy (Verified 09/14/23 10:42)
THROAT SHUT
Review of Systems
-
History Source: Patient
All other systems: Reviewed and negative
Constitutional: No Symptoms
EENT: No Symptoms Reported
Respiratory: No Symptoms
Cardiac: No Symptoms
Abdomen/GI: No Symptoms
Genitourinary: No Symptoms
Musculoskeletal: No Symptoms
Skin: No Symptoms
Neuro: Negative Headache, Weakness or Speech Problem
Endocrine: No Symptoms
Hematologic / Lymphatic: No Symptoms
Allergy / Immunology: No Symptoms
Physical Exam
-
General: Comfortable
Eyes: No Ptosis
HEENT: Normocephalic
Neck: No Bruits Bilaterally
Respiratory: Clear to Auscultation
Cardiac: Regular Rhythm
GI: Normal Bowel Sounds
Skin: Unremarkable
Extremities: No Clubbing
Psych: Unremarkable
Extended Neurological Exam
Mood & Affect: Mood Unremarkable and Affect Unremarkable
Attention Span & Concentration: Awake, Alert and Interactive
Memory: Unremarkable
Tremor: Hand Tremor Absent
Involuntary Movement: None
Speech: Quality Unremarkable and Quantity Unremarkable; Negative Expressive Aphasia, Receptive Aphasia or Dysarthric
Cranial Nerve II: Left Eye: Pupillary Reactivity Unremarkable, Pupillary Size Unremarkable and Visual Thomson Intact
Cranial Nerve II: Right Eye: Pupillary Reactivity Unremarkable, Pupillary Size Unremarkable and Visual Thomson Intact
Cranial Nerves III, IV, : Extraocular Movement: Extraocular Movement Full in all Directions
Cranial Nerve VII: Facial Symmetry: Normal Facial Symmetry
Muscle Strength, Overall: Full Throughout
Pronator Drift: No Drift in Upper Extremities
Babinski Sign: Absent Bilaterally
Data Reviewed
-
CT Head: Report Reviewed and Image Reviewed
--- NOTE | 2023-09-20 10:47 | W.PN.UPDATE ---
Update Note
Progress Note Update
QUINTON
Bilateral hydronephrosis secondary to malignant extrinsic compression (presacral mass)
Metastatic breast cancer w/ gastric involvement
09/17: s/p bilateral nephrostomy tube placement
Cr: 5.0 (pre-PCN placement) => 2.4 => 0.7
- Maintain bilateral PCNs to drainage bags
- Treatment plan per Oncology
--- NOTE | 2023-09-20 11:13 | W.PN.HOSP.TC ---
Today's Communication/Plan
-
Repeat CT head later today
Neurology recs
Bowel regimen
Pain control
Trend CBC and BMP
Long-term prognosis guarded
Assessment / Plan
Assessment / Plan
Acute on Chronic Anemia likely secondary to upper GI bleed in setting of thrombocytopenia
-Hemoglobin 8.4. Status post 2 units of PRBC. Platelets 130 K status post 1 units of platelet. Goal greater than 100,000
-Trend Hgb
-Status post endoscopy showing normal esophagus. Right foot retained and removed. Mucosal changes suspicious for gastritis with hemorrhage. Status post treatment with APC. Gastric biopsy lesion positive for Invasive carcinoma consistent with
breast origin involving gastric mucosa. Patient was informed of results.
-Started on low residue diet
-GI recs. d/w with GI okay for PPI BID. DC gtt.
Mechanical fall leading to left side subtle subdural hematoma and suspected right-sided subdural hematoma versus subdural thickening
-Continue with NIH stroke scale neurological checks
-Monitor mentation while on pain meds due to severe cancer pain
-Repeat CT head for later today
-Goal platelets greater than 100,000. Blood pressure goal less than 140 and patient blood pressure overall has been well-controlled without any intervention.
-Neurology has been consulted and appreciate assistance.
Bicytopenia (anemia thrombocytopenia) likely secondary to chemotherapy
-Transfuse for hemoglobin less than 7.
-Trend CBC daily. Reticulocyte count elevated likely in the setting of severe anemia
Acute Kidney Injury likely post renal with concern for ureter obstruction 2/2 cancer
Severe metabolic acidosis
Chronic hyponatremia
-Prior imaging showed some left hydronephrosis related presacral mass
-Monitor bladder scans
-Patient finally agreed for CAT scan today after refusing for [address]
-CT abd/pelvis w/o contrast noted.
-Check urine studies-with [facility]
-Received normal saline and bicarbonate drip. Sodium was not will DC hypotonic saline. Continue with p.o. bicarbonate
-Bladder scan protocol
-Status post bilateral percutaneous nephrostomy tube. Creatinine stabilized and normalized within normal limits.
Constipation
-Bowel regimen
Hypocalcemia/vitamin D deficiency
Give IV calcium and start vitamin D supplementation for now
Transaminitis likely secondary to chemotherapy
-Trend for now
Recent Candidiasis Esophagitis
-Completed fluconazole therapy.
Metastatic Breast Cancer with new Presacral Soft Tissue Mass, with the lung lesion concerning for metastases, pericolonic probable metastatic deposit. Small nodule adjacent right kidney probably related to metastasis. Widespread osseous metastases
seen
-Consult Hematology
-Pain control with p.o. and IV regimen.
-Patient remains with persistent severe pain. Will start patient on MS Contin 3 times daily and IV Dilaudid. Probably will require significant pain control upon discharge.
-Follows with Dr. Jacobson
Anxiety/Depression
-Continue alprazolam, duloxetine and sertraline
DVT proph: SCDs in the setting of GI bleeding
Code Status: Full Code
Long-term prognosis poor
Anticipated Discharge: > 48 hours
Subjective/Interval History
-
Date of Service: September 20, 2023
states of severe back pain
Perc tubes with urinary output
no headache, neck pain, nausea, vomiting or any other focal weakness. Denies any diplopia or vision problems.
Objective Data
-
Labs:
Laboratory Results
09/20/23
06:16
WBC 9.7
Hgb 8.4 L
Hct 25.3 L
Plt Count 130 D
Sodium 130 L
Potassium 3.9
Chloride 98
Carbon Dioxide 24
BUN 31 H
Creatinine 0.7
Glucose 97
Calcium 8.5
Vital Signs:
Vital Signs
Temp Pulse Resp BP Pulse Ox
97.9 F 110 12 106/72 100
09/20/23 07:15 09/20/23 07:15 09/20/23 07:15 09/20/23 07:15 09/20/23 07:15
I&O
09/19/23 09/20/23 09/21/23
06:59 06:59 06:59
Intake Total 1070 / 1070 1825 / 1825
Output Total 1350 / 1350 800 / 800
Balance -280 / -280 1025 / 1025
Physical Exam
-
General: Well Developed and No Apparent Distress
HEENT: Normocephalic, Atraumatic, Moist Mucous Membranes and PERRLA (Possible mild right pupil increased in size)
Respiratory: Clear to Auscultation
Cardiac: Regular Rhythm and S1/S2; Negative Murmur, Rub or Gallop
GI: Soft, Nontender, Nondistended and Normal Bowel Sounds; Negative Organomegaly
Rectal: Deferred by Provider
Genito-urinary: Nephrostomy Tubes
Musculoskeletal: No Clubbing, No Cyanosis and No Edema
Skin: Negative Rash
Neuro: Awake, Oriented, No Motor Deficits, Nonfocal/Grossly Intact and No Sensory Deficits; Negative Tremors or Facial Droop
Psych: Calm
Data Reviewed
-
Total Time Spent with Patient (in minutes): 56
--- NOTE | 2023-09-20 13:20 | W.PN.UPDATE ---
Update Note
Progress Note Update
Creatinine has now normalized
Nephrology will sign off
[2023-09-20] MEDS: ZOLOFT PO (22:11)
[2023-09-20] MEDS: COMPAZINE 5 MG IV (23:20)
[2023-09-20] MEDS: MS CONTIN (EXTENDED RELEASE) PO (23:45)
[2023-09-21] VITALS (7 sets, daily range): BP systolic 102–130; BP diastolic 67–85; PULSE 118–134; O2SAT 97; BMI 21.5
[2023-09-21] MEDS: DILAUDID 1 MG IV (05:23)
--- NOTE | 2023-09-21 07:17 | W.PN.NEURO.1 ---
Today's Communication / Plan
-
-No further neurologic imaging unless there are clinical changes, monitor for headache, nausea/vomiting, neurologic changes
-Pursue systolic blood pressure goal less than 140
-Judicious use of pain medications avoid oversedation
-Goal normonatremia
-Continue to follow platelets, in the acute setting of subdural hematoma would want to pursue goal greater than 100K platelet count
-Hold antithrombotics, would continue to hold heparin DVT prophylaxis and use IPC's
Will follow as needed call with questions and concerns
Neuro Assessment/Plan
Assessment
63 year old woman with history of metastatic breast cancer presented to hospital with generalized weakness, significant anemia
Had fall while in hospital and CT head showed left sided subdural hematoma about 3mm, patient asymptomatic from this
Repeat CT head 6 hours later showed largely stable study, probably some right sided dural thickening or possibly a small right sided subdural hematoma seen that had been present on the first study
Thus far no worrisome changes on CT head non contrast or on neurologic exam
Traumatic subdural hematoma
Does have chronic thrombocytopenia, received 1 unit platelets 09/18 given acute subdural hematoma and platelet count beneat 100k
Subjective/Objective
Subjective Data
Date of Service: September 21, 2023
No acute events, denies any headache, no nausea, no vision changes or unilateral weakness
Objective Data
Vital Signs
Temp Pulse Resp BP Pulse Ox
97.6 F 117 16 115/67 98
09/21/23 03:30 09/21/23 03:30 09/21/23 03:30 09/21/23 03:30 09/21/23 03:30
PT 14.4 Sec (11.4-14.6) 09/18/23 07:02
INR 1.12 09/18/23 07:02
Sodium 130 mmol/L (135-145) L 09/20/23 06:16
Potassium 3.9 mmol/L (3.5-5.1) 09/20/23 06:16
BUN 31 mg/dl (7-17) H 09/20/23 06:16
Glucose 97 mg/dl (70-99) 09/20/23 06:16
Calcium 8.5 mg/dl (8.4-10.2) 09/20/23 06:16
Patient Allergies
bupropion [From Wellbutrin] Allergy (Verified 09/14/23 10:42)
Patient states she lost a lot of weight on.
codeine Allergy (Verified 09/14/23 10:42)
'makes her ill'
Iodinated Contrast Media Allergy (Verified 09/14/23 10:42)
THROAT SHUT
Review of Systems
-
History Source: Patient
All other systems: Reviewed and negative
Constitutional: No Symptoms
EENT: No Symptoms Reported
Respiratory: No Symptoms
Cardiac: No Symptoms
Abdomen/GI: No Symptoms
Genitourinary: No Symptoms
Musculoskeletal: No Symptoms
Skin: No Symptoms
Neuro: Negative Headache or Weakness
Endocrine: No Symptoms
Hematologic / Lymphatic: No Symptoms
Allergy / Immunology: No Symptoms
Physical Exam
-
General: No Apparent Distress, Comfortable, Appears Chronically Ill and Appears Stated Age
Eyes: No Ptosis
HEENT: Atraumatic
Neck: Full Range of Motion
Respiratory: No Dyspnea; Negative Wheezes or Rales
Cardiac: No Murmur
GI: Soft and Non-tender
Skin: Warm and Dry; Negative Rash
Extremities: No Edema
Psych: Intact Judgement/Insight; Negative Confused or Agitated
Extended Neurological Exam
Attention Span & Concentration: Awake, Alert, Interactive, No Difficulty with 2 Step Request and Other (Conversational, oriented, normal attention)
Memory: Able to Recall
Tremor: Hand Tremor Absent
Involuntary Movement: None
Speech: Quality Unremarkable and Quantity Unremarkable; Negative Receptive Aphasia or Mildly Reduced Output
Cranial Nerve II: Left Eye: Pupillary Reactivity Unremarkable, Pupillary Size Unremarkable and Visual Thomson Intact
Cranial Nerve II: Right Eye: Pupillary Reactivity Unremarkable, Pupillary Size Unremarkable and Visual Thomson Intact
Cranial Nerves III, IV, : Extraocular Movement: Extraocular Movement Full in all Directions
Cranial Nerve V: Facial Sensation: Intact to Light Touch
Cranial Nerve VII: Facial Symmetry: Normal Facial Symmetry
Muscle Strength, Overall: Full Throughout
Muscle Bulk & Tone: Bulk Unremarkable
Pronator Drift: No Drift in Upper Extremities
Touch Sensation: Unremarkable
Coordination: [id number] Testing Unremarkable
Data Reviewed
-
CT Head: Report Reviewed and Image Reviewed
Labs: Report Reviewed
[2023-09-21 08:11] LABS: % Basophils 0.2 % (0-2); % Eosinophils 0.1 % (0-6); % Immature Granulocytes 2.2 % (0-0.5); % Lymphocytes 3.2 % (20.5-51.1); % Monocytes 8.8 % (1.7-9.3); % Neutrophils 85.5 % (42.2-75.2); Absolute Immature Granulocytes 0.2 10^3/uL (0-0.05); Absolute Lymphocytes 0.3 10^3/uL (1.2-3.4); Absolute Monocytes 0.9 10^3/uL (0.1-0.6); Absolute Neutrophils 8.8 10^3/uL (1.4-6.5); Hematocrit 22.5 % (37.0-47.0); Hemoglobin 7.2 g/dL (12.0-16.0); Mean Corpuscular Volume 90.7 fL (81.0-99.0); Mean Platelet Volume 11.5 fL (7.4-10.4); Nucleated Red Blood Cells % 0 %; Platelet Count 137 10^3/uL (130-400); Red Blood Cell Count 2.48 10^6/uL (4.20-5.40); Red Cell Dist. Width 20.4 % (11.5-14.5); White Blood Cell Count 10.3 10^3/uL (4.8-10.8)
[2023-09-21 08:29] LABS: Blood Urea Nitrogen 25 mg/dl (7-17); Calcium 8.6 mg/dl (8.4-10.2); Carbon Dioxide 22 mmol/L (22-30); Chloride 99 mmol/L (98-107); Estimated Creatinine Clearance 69 ml/min; Glucose 102 mg/dl (70-99); Potassium 4.1 mmol/L (3.5-5.1); Sodium 131 mmol/L (135-145); eGFR > 60.00
--- NOTE | 2023-09-21 09:04 | W.PN.ONC ---
Today's Communication / Plan
-
09/14 EGD biopsies of stomach: Invasive carcinoma consistent with breast origin involving gastric mucosa (patient aware of biopsy results)
09/20 Hgb 7.5, Hct 22.5, PLT 137
s/p 2units PRBCs
Transfuse as needed to maintain Hgb >7
s/p 1unit PLTs. Follow platelets, maintain PLT >100 ideally
09/20 Creat 0.7 s/p bilateral PCN placement
Serial Head CT s/p fall per Neuro
Holding anticoagulation
Pain management - monitor mentation/oversedation
Falls precautions
Case management following - hospital bed via [facility] and [facility] ordered
Justice plans to begin Taxane chemotherapy upon discharge if performance status improves. Office updated.
We will follow.
Impression
Impression
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
GI bleeding
Iron deficiency
Presacral lesion
Bilateral hydronephrosis w/ QUINTON s/p b/l PCN
Acute anemia - gastritis/bleeding noted on EGD
Recent episode of hematemesis
Chronic thrombocytopenia, suspected ITP
Subdural hematoma s/p fall (09/19/23)
Change in mental status
Hematuria
Subjective/Objective
Subjective/Objective
Maria Luisa is restless in the bed. Nursing assisting with repositioning. Blood urine output in commode noted. Patient reports very poor appetite. she denies pain. she is oriented to name, month, , and place. nursing reported increased confusion
possibly due to IV Dilaudid. She is refusing further testing and procedures today. She states she 'does not want to ' when asked about goals of care. She denies headache, dizziness, visual changes, weakness, nausea, or vomiting.
Vital Signs:
Vital Signs
Temp Pulse Resp BP Pulse Ox
97.9 F 118 16 119/78 95
09/21/23 07:30 09/21/23 07:30 09/21/23 07:30 09/21/23 07:30 09/21/23 07:30
physical exam:
[id number], restless/fatigued, pallor, chronically ill appearing
HR tachycardia
Bilateral PCN with bloody/alison urine output
Lab Results:
Laboratory Data
WBC 10.3 10^3/uL (4.8-10.8) 09/21/23 07:32
Hgb 7.2 g/dL (12.0-16.0) L 09/21/23 07:32
Plt Count 137 10^3/uL (130-400) 09/21/23 07:32
PT 14.4 Sec (11.4-14.6) 09/18/23 07:02
INR 1.12 09/18/23 07:02
eGFR > 60.00 09/21/23 07:32
09/20/23 CT Head: Stable questionable trace left sided cerebral convexity subdural hematoma versus dural thickening. No midline shift or herniation
[2023-09-21] MEDS: ROXICODONE 5 MG PO (10:33)
[2023-09-21] MEDS: SENOKOT-S 1 TABLET PO (10:33)
[2023-09-21] MEDS: CYMBALTA DELAYED RELEASE 30 MG PO (10:34)
[2023-09-21] MEDS: VITAMIN B-12 1000 MCG PO (10:34)
[2023-09-21] MEDS: FEOSOL 325 MG PO (10:34)
[2023-09-21] MEDS: NSS 500 IV (10:35)
[2023-09-21] MEDS: MS CONTIN (EXTENDED RELEASE) 15 MG PO ×2 (10:35→15:32)
[2023-09-21] MEDS: PROTONIX 40 MG PO (10:35)
[2023-09-21] MEDS: MIRALAX 17 GRAMS PO (10:35)
[2023-09-21] MEDS: VITAMIN D3 (cholecalciferol) 125 MCG PO (10:35)
--- NOTE | 2023-09-21 11:08 | W.PN.HOSP.TC ---
Today's Communication/Plan
-
monitor Hg
pain control
monitor HR
Assessment / Plan
Assessment / Plan
EGD 09/15/23
Impression: - Normal esophagus.
- Z-line irregular.
- Hematin and some red blood retained and removed.
- Mucosal changes suspicious for gastritis with
hemorrhage. Could this be metastatic disease?
Biopsied. Treated with epinephrine to stop bleeding
and argon plasma coagulation (APC).
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
Recommendation: - Return patient to [facility] for ongoing care.
- Low residue diet.
- Await pathology results.
- If patient continues to bleed, would consider
hemospray since it is a diffuse area.
- Keep platelets >50K or even better >100K to prevent
oozing.
- The findings and recommendations were discussed with
the patient and Dr. Jacobson (her oncologist).
- My office will call you in 1-2 weeks with the biopsy
results.
HEAD CT 09/20/23
IMPRESSION:
Stable questionable trace left sided cerebral convexity subdural hematoma versus dural thickening. No midline shift or herniation.
CT A/P
IMPRESSION:
1. Mild bilateral hydronephrosis. No renal or ureteral calculi identified. There is wall thickening of the urinary bladder which may be related to prior radiation therapy. Bladder is relatively underdistended and evaluation is limited on
noncontrast examination.
2. Progression of metastatic disease as above. Multiple low-attenuation foci within the liver suspicious for metastases. Retroperitoneal lymphadenopathy consistent with metastasis. Small pericolonic probable metastatic deposits. Small nodules
adjacent to the right kidney probably related to metastasis.
3. Left pelvic sidewall abnormal soft tissue attenuation related to either metastasis or post radiation change as seen prior. Presacral soft tissue attenuation thickening probably related to radiation change.
4. Minimal right pleural effusion. Small left pleural effusion with adjacent atelectasis/consolidation.
5. Liquid stool throughout the colon. No obstruction. Unchanged incidental duodenal lipoma.
6. Widespread osseous metastases as seen prior.
7. Anasarca.
Acute on Chronic Anemia likely secondary to upper GI bleed in setting of thrombocytopenia
-Status post 2 units of PRBC, s/p [address]
-goal PLT > 100,000
-Status post endoscopy 09/14 with results above - mucosal changes with gastritis with hemorrhage s/p APC with biopsies showing metastatic disease; Gastric biopsy lesion positive for Invasive carcinoma consistent with breast origin involving gastric
mucosa. Patient was informed of results.
-Started on low residue diet
-continue PPI BID
-appreciate GI
-minor drop in Hg today; repeated
Mechanical fall leading to left side subtle subdural hematoma and suspected right-sided subdural hematoma versus subdural thickening
-Continue with NIH stroke scale neurological checks
-Monitor mentation while on pain meds due to severe cancer pain
-s/p repeat head CT - stable
-Goal platelets greater than 100,000. Blood pressure goal less than 140 and patient blood pressure overall has been well-controlled without any intervention.
-Neurology has been consulted and appreciate assistance.
Bicytopenia (anemia thrombocytopenia) likely secondary to chemotherapy
-Transfuse for hemoglobin less than 7.
-Trend CBC daily. Reticulocyte count elevated likely in the setting of severe anemia
Acute Kidney Injury likely post renal with concern for ureter obstruction 2/2 cancer
Severe metabolic acidosis
Chronic hyponatremia
-Monitor bladder scans
-Patient finally agreed for CAT scan today after refusing for 2 days.
-CT abd/pelvis w/o contrast results above
-Status post bilateral percutaneous nephrostomy tube. Creatinine stabilized and normalized within normal limits.
-mild hematuria - monitor
Constipation
-Bowel regimen
Hypocalcemia/vitamin D deficiency
Give IV calcium and start vitamin D supplementation for now
Transaminitis likely secondary to chemotherapy
-Trend for now
Recent Candidiasis Esophagitis
-Completed fluconazole therapy.
Metastatic Breast Cancer with new Presacral Soft Tissue Mass, with the lung lesion concerning for metastases, pericolonic probable metastatic deposit. Small nodule adjacent right kidney probably related to metastasis. Widespread osseous metastases
seen
-appreciate Heme
-Pain control with p.o. and IV regimen.
-Patient remains with persistent severe pain. Will start patient on MS Contin 3 times daily and IV Dilaudid. Probably will require significant pain control upon discharge.
-Follows with Dr. Jacobson
-per Heme note:
[place] plans to begin Taxane chemotherapy once improvement of acute medical issues and performance status. She is tentatively scheduled next week Thursday, 09/21 to begin treatment.
Anxiety/Depression
-Continue alprazolam, duloxetine and sertraline
DVT proph: SCDs in the setting of GI bleeding
Code Status: Full Code
Long-term prognosis poor
Anticipated Discharge: 24 - 48 hours
Subjective/Interval History
-
Date of Service: September 21, 2023
patient ripped out IV's overnight
she continues to complain of pain
some bleeding out of left nephrostomy tube and urination
Objective Data
-
Labs:
Laboratory Results
09/21/23 09/21/23
07:32 10:56
WBC 10.3
Hgb 7.2 L Pending
Hct 22.5 L
Plt Count 137
Sodium 131 L
Potassium 4.1
Chloride 99
Carbon Dioxide 22
BUN 25 H
Creatinine 0.7
Glucose 102 H
Calcium 8.6
Vital Signs:
Vital Signs
Temp Pulse Resp BP Pulse Ox
97.9 F 118 16 119/78 95
09/21/23 07:30 09/21/23 07:30 09/21/23 07:30 09/21/23 07:30 09/21/23 07:30
I&O
09/20/23 09/21/23 09/22/23
06:59 06:59 06:59
Intake Total 1825 / 1825 1080 / 1080
Output Total 800 / 800 325 / 325 300 / 300
Balance 1025 / 1025 755 / 755 -300 / -300
Review of Systems
-
History Source: Patient
All other systems: Reviewed and negative
Physical Exam
-
General: No Apparent Distress
HEENT: PERRLA
Respiratory: Clear to Auscultation; Negative Wheezes
Cardiac: Regular Rhythm and S1/S2; Negative Murmur, Rub or Gallop
GI: Soft, Nontender, Nondistended and Normal Bowel Sounds; Negative Organomegaly
Rectal: Deferred by Provider
Genito-urinary: Nephrostomy Tubes
Musculoskeletal: No Clubbing, No Cyanosis and No Edema
Skin: Negative Rash
Neuro: Awake, Oriented, No Motor Deficits, Nonfocal/Grossly Intact and No Sensory Deficits; Negative Tremors or Facial Droop
Psych: Calm
Data Reviewed
-
Diagnostic Radiology: Report Reviewed by me
Labs: Labs Reviewed by me
[2023-09-21 11:12] LABS: Hemoglobin 7.5 g/dL (12.0-16.0)
[2023-09-21] MEDS: COMPAZINE 5 MG IV (15:33)
--- NOTE | 2023-09-21 16:04 | CM ---
Chart reviewed and per oncology notes plan to follow up for Chemo after discharge, physical therapy are recommending skilled, and patient would be unable to receive chemo at skilled facility. Patient was set up with VN and hospital bed ordered
from [facility].
Plan; To follow up with patient progress.
[2023-09-21 19:39] LABS: Hemoglobin 7.1 g/dL (12.0-16.0)
[2023-09-21] MEDS: SENOKOT-S PO ×2 (21:32→21:40)
[2023-09-21] MEDS: ZOLOFT 100 MG PO (21:32)
[2023-09-21] MEDS: PROTONIX PO ×2 (21:32→21:40)
[2023-09-22] VITALS (10 sets, daily range): BP systolic 113–138; BP diastolic 73–93; BMI 22.4
[2023-09-22] MEDS: MS CONTIN (EXTENDED RELEASE) 15 MG PO ×2 (00:41→09:10)
[2023-09-22] MEDS: FEOSOL 325 MG PO (09:09)
[2023-09-22] MEDS: VITAMIN D3 (cholecalciferol) 125 MCG PO (09:09)
[2023-09-22] MEDS: CYMBALTA DELAYED RELEASE 30 MG PO (09:09)
[2023-09-22] MEDS: VITAMIN B-12 1000 MCG PO (09:10)
[2023-09-22] MEDS: SENOKOT-S 1 TABLET PO (09:10)
[2023-09-22] MEDS: MIRALAX 17 GRAMS PO (09:10)
[2023-09-22] MEDS: PROTONIX 40 MG PO (09:10)
[2023-09-22] MEDS: COMPAZINE 5 MG IV (09:40)
[2023-09-22 09:44] LABS: Hematocrit 21.4 % (37.0-47.0); Hemoglobin 7.1 g/dL (12.0-16.0); Mean Corp Hgb Conc. 33.2 g/dL (33.0-37.0); Mean Corpuscular Hgb 30.2 pg (27.0-31.0); Mean Corpuscular Volume 91.1 fL (81.0-99.0); Mean Platelet Volume 11.9 fL (7.4-10.4); Platelet Count 146 10^3/uL (130-400); Red Blood Cell Count 2.35 10^6/uL (4.20-5.40); Red Cell Dist. Width 21.1 % (11.5-14.5); White Blood Cell Count 10.8 10^3/uL (4.8-10.8)
--- NOTE | 2023-09-22 10:14 | W.PN.ONC ---
Addendum entered and electronically signed by Gabriela Jacobson MD 09/22/23 13:29:
Patient seen and examined
Appears pale, weak
for 1u prbcs today
still struggling w/ constipation
SNF was recommended, but she declined
discussed goals of care - she wants to continue cancer directed therapy if able, though has been unable to get to office to start chemo due to recurrent ER visits, hospital admissions, transportation and financial barriers.
Will continue to monitor and continue conversations. Should she opted to forego further aggressive therapy, hospice would be an option.
Original Note:
Today's Communication / Plan
-
09/14 EGD biopsies of stomach: Invasive carcinoma consistent with breast origin involving gastric mucosa (patient aware of biopsy results)
09/21 Hgb 7.1, Hct 21.4, PLT 146
s/p 2units PRBCs
Transfuse as needed to maintain Hgb >7
s/p 1unit PLTs. Follow platelets, maintain PLT >100 ideally
Holding anticoagulation
Pain management
Falls precautions
Supportive care, emotional support
Patient tells me she wants to rest today and is refusing further testing/imaging at this time.
Monitor Hgb and nausea. We will follow.
Impression
Impression
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
GI bleeding
Iron deficiency
Presacral lesion
Bilateral hydronephrosis w/ QUINTON s/p b/l PCN
Acute anemia - gastritis/bleeding noted on EGD
Recent episode of hematemesis
Chronic thrombocytopenia, suspected ITP
Subdural hematoma s/p fall (09/19/23)
Gross hematuria
Tachycardia
Acute on chronic pain
Weakness
Nausea
Subjective/Objective
Subjective/Objective
Patient is complaining of nausea. Nursing at bedside administering Compazine. Patient states her pain is better controlled today.
Vital Signs:
Vital Signs
Temp Pulse Resp BP Pulse Ox
98.3 F 120 16 124/83 93
09/22/23 07:00 09/22/23 07:00 09/22/23 07:00 09/22/23 07:00 09/22/23 07:00
physical exam:
[id number], less restless this morning
pale, chronically ill appearing
HR tachycardic 120s
bilateral PCNs
Lab Results:
Laboratory Data
WBC 10.8 10^3/uL (4.8-10.8) 09/22/23 09:18
Hgb 7.1 g/dL (12.0-16.0) L 09/22/23 09:18
Plt Count 146 10^3/uL (130-400) 09/22/23 09:18
PT 14.4 Sec (11.4-14.6) 09/18/23 07:02
INR 1.12 09/18/23 07:02
eGFR > 60.00 09/21/23 07:32
--- NOTE | 2023-09-22 11:20 | W.PN.HOSP.TC ---
Addendum entered and electronically signed by Jessica Ocasio MD 09/22/23 14:36:
moderate protein calorie malnutrition
-appreciate dietary
Original Note:
Today's Communication/Plan
-
transfuse
treat constiptation
possible DC tomorrow
Assessment / Plan
Assessment / Plan
EGD 09/15/23
Impression: - Normal esophagus.
- Z-line irregular.
- Hematin and some red blood retained and removed.
- Mucosal changes suspicious for gastritis with
hemorrhage. Could this be metastatic disease?
Biopsied. Treated with epinephrine to stop bleeding
and argon plasma coagulation (APC).
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
Recommendation: - Return patient to [facility] for ongoing care.
- Low residue diet.
- Await pathology results.
- If patient continues to bleed, would consider
hemospray since it is a diffuse area.
- Keep platelets >50K or even better >100K to prevent
oozing.
- The findings and recommendations were discussed with
the patient and Dr. Jacobson (her oncologist).
- My office will call you in 1-2 weeks with the biopsy
results.
HEAD CT 09/20/23
IMPRESSION:
Stable questionable trace left sided cerebral convexity subdural hematoma versus dural thickening. No midline shift or herniation.
CT A/P
IMPRESSION:
1. Mild bilateral hydronephrosis. No renal or ureteral calculi identified. There is wall thickening of the urinary bladder which may be related to prior radiation therapy. Bladder is relatively underdistended and evaluation is limited on
noncontrast examination.
2. Progression of metastatic disease as above. Multiple low-attenuation foci within the liver suspicious for metastases. Retroperitoneal lymphadenopathy consistent with metastasis. Small pericolonic probable metastatic deposits. Small nodules
adjacent to the right kidney probably related to metastasis.
3. Left pelvic sidewall abnormal soft tissue attenuation related to either metastasis or post radiation change as seen prior. Presacral soft tissue attenuation thickening probably related to radiation change.
4. Minimal right pleural effusion. Small left pleural effusion with adjacent atelectasis/consolidation.
5. Liquid stool throughout the colon. No obstruction. Unchanged incidental duodenal lipoma.
6. Widespread osseous metastases as seen prior.
7. Anasarca.
Acute on Chronic Anemia likely secondary to upper GI bleed in setting of thrombocytopenia
-Status post 2 units of PRBC, s/p [address]; goal PLT > 100,000
-09/21: Hg 7.1 - will transfuse additional unit
-Status post endoscopy 09/14 with results above - mucosal changes with gastritis with hemorrhage s/p APC with biopsies showing metastatic disease; Gastric biopsy lesion positive for Invasive carcinoma consistent with breast origin involving gastric
mucosa. Patient was informed of results.
-Started on low residue diet
-continue PPI BID
-appreciate GI
Mechanical fall leading to left side subtle subdural hematoma and suspected right-sided subdural hematoma versus subdural thickening
-Continue with NIH stroke scale neurological checks
-Monitor mentation while on pain meds due to severe cancer pain
-s/p repeat head CT - stable
-Goal platelets greater than 100,000. Blood pressure goal less than 140 and patient blood pressure overall has been well-controlled without any intervention.
-Neurology has been consulted and appreciate assistance.
Bicytopenia (anemia thrombocytopenia) likely secondary to chemotherapy
-Trend CBC daily. Reticulocyte count elevated likely in the setting of severe anemia
Acute Kidney Injury likely post renal with concern for ureter obstruction 2/2 cancer
Severe metabolic acidosis
Chronic hyponatremia
-Monitor bladder scans
-Patient finally agreed for CAT scan today after refusing for 2 [address] abd/pelvis w/o contrast results above
-Status post bilateral percutaneous nephrostomy tube. Creatinine stabilized and normalized within normal limits.
-mild hematuria - resolved
Constipation
-Bowel regimen
Hypocalcemia/vitamin D deficiency
Give IV calcium and start vitamin D supplementation for now
Transaminitis likely secondary to chemotherapy
-Trend for now
Recent Candidiasis Esophagitis
-Completed fluconazole therapy.
Metastatic Breast Cancer with new Presacral Soft Tissue Mass, with the lung lesion concerning for metastases, pericolonic probable metastatic deposit. Small nodule adjacent right kidney probably related to metastasis. Widespread osseous metastases
seen
-appreciate Heme
-Pain control with p.o. and IV regimen.
-Patient remains with persistent severe pain. Will start patient on MS Contin 3 times daily and IV Dilaudid. Probably will require significant pain control upon discharge.
-Follows with Dr. Jacobson
-per Heme note:
[place] plans to begin Taxane chemotherapy once improvement of acute medical issues and performance status. This may need to be delayed until post SNF.
Anxiety/Depression
-Continue alprazolam, duloxetine and sertraline
DVT proph: SCDs in the setting of GI bleeding
Code Status: Full Code
Long-term prognosis poor
Anticipated Discharge: 24 - 48 hours
Subjective/Interval History
-
Date of Service: September 22, 2023
pain better controlled
had nausea today
no BM yet
Objective Data
-
Labs:
Laboratory Results
09/22/23 09/22/23
09:18 11:14
WBC 10.8
Hgb 7.1 L
Hct 21.4 L
Plt Count 146
Sodium Cancelled Pending
Potassium Cancelled Pending
Chloride Cancelled Pending
Carbon Dioxide Cancelled Pending
BUN Cancelled Pending
Creatinine Cancelled Pending
Glucose Cancelled Pending
Calcium Cancelled Pending
Vital Signs:
Vital Signs
Temp Pulse Resp BP Pulse Ox
98.3 F 120 16 124/83 93
09/22/23 07:00 09/22/23 07:00 09/22/23 07:00 09/22/23 07:00 09/22/23 07:00
I&O
09/21/23 09/22/23 09/23/23
06:59 06:59 06:59
Intake Total 1080 / 1080 1080 / 1080
Output Total 325 / 325 925 / 925
Balance 755 / 755 155 / 155
Review of Systems
-
History Source: Patient
All other systems: Reviewed and negative
Physical Exam
-
General: No Apparent Distress
HEENT: PERRLA
Respiratory: Clear to Auscultation; Negative Wheezes
Cardiac: Regular Rhythm and S1/S2; Negative Murmur, Rub or Gallop
GI: Soft, Nontender, Nondistended and Normal Bowel Sounds; Negative Organomegaly
Rectal: Deferred by Provider
Genito-urinary: Nephrostomy Tubes
Musculoskeletal: No Clubbing, No Cyanosis and No Edema
Skin: Negative Rash
Neuro: Awake, Oriented, No Motor Deficits, Nonfocal/Grossly Intact and No Sensory Deficits; Negative Tremors or Facial Droop
Psych: Calm
Data Reviewed
-
Diagnostic Radiology: Report Reviewed by me
Labs: Labs Reviewed by me
--- NOTE | 2023-09-22 11:26 | PN.CDI ---
CDI
- -
CDI:
Physician Documentation Request
Admit Date: 09/14/23 14:47
Dear Doctor Amarjit,
Please review the following and provide your response in the progress notes.
Clinical Indicators:
- 09/20 Dietitician note indicates moderate protein calorie malnutrition
- Nutrient intake </= 50% estimated needs, for >/= 1 month
- Mild loss of fat over orbital
- Mild loss of muscle over temporal
Based on the information, which of the following most accurately represents the patient's nutritional status?
Moderate protein calorie malnutrition
Mild protein calorie malnutrition
Other
[place] Criteria ([facility] Hospitalist 2017)
2 or more criteria must be present for either
non severe or severe malnutrition
Note that the criteria differs related to the
presence of an acute or chronic illness
Acute Illness Chronic Illness
Energy Intake Non Severe: <75% for >7 days Non Severe: <75% for >1 month
Severe: <50% for >5 days Severe: <75% for >1 month
Weight Loss Non Severe: 1-2% over 1 week Non Severe: 5% over 1 month
5% over 1 month 7.5% over 3 months
7.5% over 3 months 10% over 6 months
1 year N/A 20% over 1 year
Severe: >2% over 1 week Severe: >5% over 1 month
>5% over 1 month >7.5% over 3 months
>7.5% over 3 months >10% over 6 months
1 year N/A >20% over 1 year
Body Fat Non Severe: Mild Decrease Non Severe: Mild Loss
Severe: Moderate Decrease Severe: Severe Loss
Muscle Mass Non Severe: Mild Decrease Non Severe: Mild Loss
Severe: Moderate Decrease Severe: Severe Loss
Fluid Accumulation Non Severe: Mild Accumulation Non Severe: Mild Accumulation
Severe: Moderate to severe Severe: Moderate to severe
accumulation accumulation
Reduced Truckman Strength Non Severe: N/A Non Severe: N/A
Severe: Measurably reduced Severe: Measurably reduced
Additional criteria that can be used to Determine if Mild or Moderate Malnutrition ([employer] Manual 2018)
Mild Moderate Severe
Albumin gm/dl <3.0 gm/dl <2.5 gm/dl <2.0 gm/dl
Pre Albumin mg/dl <15 gm/dl <10 mg/dl <5.0 mg/dl
BMI <18.5 <17 <16
Use of terms such as suspected, likely, concern for, or probable (associated with a specific diagnosis that is being evaluated, monitored, or treated as if it exists) are acceptable and can be coded in the inpatient setting, when documented at the
time of discharge.
Thank you,
Geovanny Miller RN
CDI Specialist
Please use your independent medical judgment in providing your response.
[2023-09-22 12:05] LABS: Blood Urea Nitrogen 23 mg/dl (7-17); Calcium 8.5 mg/dl (8.4-10.2); Carbon Dioxide 23 mmol/L (22-30); Chloride 100 mmol/L (98-107); Estimated Creatinine Clearance 81 ml/min; Glucose 112 mg/dl (70-99); Magnesium 1.6 mg/dl (1.6-2.3); Potassium 3.8 mmol/L (3.5-5.1); Sodium 131 mmol/L (135-145); eGFR > 60.00
--- NOTE | 2023-09-22 12:05 | CM ---
Chart reviewed and physical therapy are recommending skilled placement, skilled placement reviewed with patient and patient is adamantly refusing skilled placement. stadium manager spoke with patient and with patient's permission provided update to her
friend Saida Blackwood [phone].
Plan; Await outcome of discussion with Oncology on plan for patient.
[2023-09-22] MEDS: DULCOLAX 10 MG PO (12:12)
--- NOTE | 2023-09-22 13:58 | PTCARENOTE ---
pt pulled out second iv of the day. Dr Ocasio was contacted and bilateral wrist restraints were ordered as pt is about to receive a unit of blood.
[2023-09-22] MEDS: DILAUDID 1 MG IV ×3 (14:45→23:02)
[2023-09-22] MEDS: MS CONTIN (EXTENDED RELEASE) PO (15:44)
--- NOTE | 2023-09-22 17:16 | PTCARENOTE ---
Patient tolerated blood transfusion without difficulty, completed. Pt restless in bed , needs frequent reminders of what is going on around her .
[2023-09-22] MEDS: PROTONIX PO (20:05)
[2023-09-22] MEDS: SENOKOT-S PO (20:05)
[2023-09-22] MEDS: ZOLOFT PO (21:26)
[2023-09-23] MEDS: MS CONTIN (EXTENDED RELEASE) PO ×4 (00:13→17:08)
[2023-09-23] MEDS: ATIVAN 0.25 MG IV (00:42)
[2023-09-23] MEDS: FLUSH (NSS) 1 FLUSH IV (00:43)
[2023-09-23] MEDS: NSS (PRESERVATIVE FREE) 0.125 ML IV (00:55)
[2023-09-23 04:45] VITALS: BP 139/85
[2023-09-23 04:50] VITALS: BMI 22.5
--- NOTE | 2023-09-23 04:53 | DOWNTIME ---
There was a [employer] Client Trouble Clerk Downtime on 09/23/2023 from 0100 to 09/23/2023 at 0439. Downtime documentation of patient's care, including medication administrations, has been reconciled in the electronic record per guidelines. Refer to the
patient's paper chart under the miscellaneous tab to see printed paper medication records and downtime forms.
[2023-09-23] MEDS: DILAUDID 1 MG IV ×5 (05:01→16:59)
[2023-09-23 07:30] VITALS: BP 130/80
--- NOTE | 2023-09-23 08:25 | W.PN.ONC2 ---
Today's Communication / Plan
-
Patient appears to be actively dying and from my perspective is not a candidate for chemotherapy in light of performance status.
I spoke at length the patient's contact Shelbi. Ethically, continue pain medications for palliation of extensive widespread bone metastatic disease which is very painful.
Hospice care would be the best option for palliation in this patient.
Will discuss with risk-management/ethics. Renato Courtney contacted.
She is not eligible for discharge to home. Discharge plan for SNF being investigated.
Impression
Impression
Metastatic breast cancer with extensive osseous and progressive hepatic metastatic disease
GI bleeding
Iron deficiency
Presacral lesion
Bilateral hydronephrosis w/ QUINTON s/p b/l PCN
Acute anemia - gastritis/bleeding noted on EGD
Recent episode of hematemesis
Chronic thrombocytopenia, suspected ITP
Subdural hematoma s/p fall (09/19/23)
Gross hematuria
Tachycardia
Acute on chronic pain
Weakness
Nausea
Plan
Plan
Continue IV ppi, monitor CBC
EGD biopsy pathology confirms metastatic disease to stomach.
Patient is not currently a chemotherapy candidate nor do I believe she will ever be eligible for chemotherapy.
She is most appropriate for hospice care.
Long conversation with patient's friend Shelbi who is listed as contact although unfortunately Shelbi is not officially POA nor related. She is uncomfortable making these types of decisions. Unfortunately patient is also too lethargic because of
narcotics to be able to reasonably make decisions for self. FYI: Shelbi's dated Maria Luisa decades ago and that is the basis of their relatively new and rekindled friendship.
Subjective/Objective
Chief Complaint
ACS oncology follow-up
Subjective
Patient is currently lethargic. Earlier today she was moaning in pain and was given IV Dilaudid. Reviewed with her RN. Patient seems to be actively dying. She has known progressive metastatic breast cancer with widespread osseous metastatic
disease as well as hepatic progressive disease.
Vital Signs:
Vital Signs
Temp Pulse Resp BP Pulse Ox
98.8 F 128 20 139/85 97
09/23/23 04:45 09/23/23 04:45 09/23/23 04:45 09/23/23 04:45 09/23/23 04:45
Lab Results:
Laboratory Data
WBC 10.8 10^3/uL (4.8-10.8) 09/22/23 09:18
Hgb 7.1 g/dL (12.0-16.0) L 09/22/23 09:18
Plt Count 146 10^3/uL (130-400) 09/22/23 09:18
PT 14.4 Sec (11.4-14.6) 09/18/23 07:02
INR 1.12 09/18/23 07:02
eGFR > 60.00 09/22/23 11:30
CT ABD/PEL 09/16:
IMPRESSION:
1. Mild bilateral hydronephrosis. No renal or ureteral calculi identified. There is wall thickening of the urinary bladder which may be related to prior radiation therapy. Bladder is relatively underdistended and evaluation is limited on
noncontrast examination.
2. Progression of metastatic disease as above. Multiple low-attenuation foci within the liver suspicious for metastases. Retroperitoneal lymphadenopathy consistent with metastasis. Small pericolonic probable metastatic deposits. Small nodules
adjacent to the right kidney probably related to metastasis.
3. Left pelvic sidewall abnormal soft tissue attenuation related to either metastasis or post radiation change as seen prior. Presacral soft tissue attenuation thickening probably related to radiation change.
4. Minimal right pleural effusion. Small left pleural effusion with adjacent atelectasis/consolidation.
5. Liquid stool throughout the colon. No obstruction. Unchanged incidental duodenal lipoma.
6. Widespread osseous metastases as seen prior.
7. Anasarca.
Electronically signed by Abdelrahman Rivera DO 09/17/2023 10:23 AM
Physical Exam
Moribund. PS 4.
--- NOTE | 2023-09-23 08:53 | PTCARENOTE ---
Patient spit out all po meds this am, I attempted her MS Contin multiple times, she would not swallow it. I gave her IV Dilaudid 1 mg as ordered prn for her c/o back pain .this morning. Was restless and agitated. Resting at present .
[2023-09-23] MEDS: PROTONIX PO (09:27)
[2023-09-23] MEDS: CYMBALTA DELAYED RELEASE PO (09:27)
[2023-09-23] MEDS: MIRALAX PO (09:27)
[2023-09-23] MEDS: FEOSOL PO (09:27)
[2023-09-23] MEDS: VITAMIN D3 (cholecalciferol) PO (09:28)
[2023-09-23] MEDS: SENOKOT-S PO (09:28)
[2023-09-23] MEDS: VITAMIN B-12 PO (09:28)
--- NOTE | 2023-09-23 09:48 | W.PN.HOSP.TC ---
Today's Communication/Plan
-
awaiting AM labs
repeat head CT
difficult situation as patient increasingly more confused/deconditioned, unlikely to ever be a chemo candidate per Heme. She does not have a family member to speak for her; Dr. Stewart asked for risk management/ethics involvement.
Assessment / Plan
Assessment / Plan
EGD 09/15/23
Impression: - Normal esophagus.
- Z-line irregular.
- Hematin and some red blood retained and removed.
- Mucosal changes suspicious for gastritis with
hemorrhage. Could this be metastatic disease?
Biopsied. Treated with epinephrine to stop bleeding
and argon plasma coagulation (APC).
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
Recommendation: - Return patient to [facility] for [facility] care.
- Low residue diet.
- Await pathology results.
- If patient continues to bleed, would consider
hemospray since it is a diffuse area.
- Keep platelets >50K or even better >100K to prevent
oozing.
- The findings and recommendations were discussed with
the patient and Dr. Jacobson (her oncologist).
- My office will call you in 1-2 weeks with the biopsy
results.
HEAD CT 09/20/23
IMPRESSION:
Stable questionable trace left sided cerebral convexity subdural hematoma versus dural thickening. No midline shift or herniation.
CT A/P
IMPRESSION:
1. Mild bilateral hydronephrosis. No renal or ureteral calculi identified. There is wall thickening of the urinary bladder which may be related to prior radiation therapy. Bladder is relatively underdistended and evaluation is limited on
noncontrast examination.
2. Progression of metastatic disease as above. Multiple low-attenuation foci within the liver suspicious for metastases. Retroperitoneal lymphadenopathy consistent with metastasis. Small pericolonic probable metastatic deposits. Small nodules
adjacent to the right kidney probably related to metastasis.
3. Left pelvic sidewall abnormal soft tissue attenuation related to either metastasis or post radiation change as seen prior. Presacral soft tissue attenuation thickening probably related to radiation change.
4. Minimal right pleural effusion. Small left pleural effusion with adjacent atelectasis/consolidation.
5. Liquid stool throughout the colon. No obstruction. Unchanged incidental duodenal lipoma.
6. Widespread osseous metastases as seen prior.
7. Anasarca.
Acute on Chronic Anemia likely secondary to upper GI bleed in setting of thrombocytopenia
-Status post 2 units of PRBC, s/p [address]; goal PLT > 100,000
-s/p additional unit 09/21
-Status post endoscopy 09/14 with results above - mucosal changes with gastritis with hemorrhage s/p APC with biopsies showing metastatic disease; Gastric biopsy lesion positive for Invasive carcinoma consistent with breast origin involving gastric
mucosa. Patient was informed of results.
-Started on low residue diet
-continue PPI BID
-appreciate GI
Metastatic Breast Cancer with new Presacral Soft Tissue Mass, with the lung lesion concerning for metastases, pericolonic probable metastatic deposit. Small nodule adjacent right kidney probably related to metastasis. Widespread osseous metastases
seen
-Follows with Dr. Jacobson
-started on MS Contin 3 times daily this admission given severe pain from cancer
-appreciate Dr. Stewart's eval this AM - risk management involved as patient becoming increasingly confused, unable to make medical decisions and unlikely to be a chemo candidate. no family members to speak for patient as POA.
Mechanical fall leading to left side subtle subdural hematoma and suspected right-sided subdural hematoma versus subdural thickening
-appreciate neurology consult
-s/p repeat head CT - stable
-Goal platelets greater than 100,000. Blood pressure goal less than 140 and patient blood pressure overall has been well-controlled without any intervention.
*change in exam on 09/22 likely 2/2 progressive deconditioning/pain meds will obtain repeat head CT
Bicytopenia (anemia thrombocytopenia) likely secondary to chemotherapy
-Trend CBC daily. Reticulocyte count elevated likely in the setting of severe anemia
Acute Kidney Injury likely post renal with concern for ureter obstruction 2/2 cancer
Severe metabolic acidosis
Chronic hyponatremia
-CT abd/pelvis w/o contrast results above
-Status post bilateral percutaneous nephrostomy tube. Creatinine stabilized and normalized within normal limits.
-mild hematuria - resolved
Constipation
-Bowel regimen
Hypocalcemia/vitamin D deficiency
Give IV calcium and start vitamin D supplementation for now
Transaminitis likely secondary to chemotherapy
-Trend for now
Recent Candidiasis Esophagitis
-Completed fluconazole therapy.
Anxiety/Depression
-Continue alprazolam, duloxetine and sertraline
DVT proph: SCDs in the setting of GI bleeding
Code Status: Full Code
Long-term prognosis poor
Anticipated Discharge: 24 - 48 hours
Subjective/Interval History
-
Date of Service: September 23, 2023
patient restless and moaning
looks more disheveldt his morning
Objective Data
-
Vital Signs:
Vital Signs
Temp Pulse Resp BP Pulse Ox
97.6 F 123 22 130/80 95
09/23/23 07:30 09/23/23 07:30 09/23/23 07:30 09/23/23 07:30 09/23/23 07:30
I&O
09/22/23 09/23/23 09/24/23
06:59 06:59 06:59
Intake Total 1080 / 1080 805 / 805
Output Total 925 / 925 250 / 250
Balance 155 / 155 555 / 555
Review of Systems
-
History Source: Patient
All other systems: Reviewed and negative
Physical Exam
-
General: No Apparent Distress
HEENT: PERRLA
Respiratory: Clear to Auscultation; Negative Wheezes
Cardiac: Regular Rhythm and S1/S2; Negative Murmur, Rub or Gallop
GI: Soft, Nontender, Nondistended and Normal Bowel Sounds; Negative Organomegaly
Rectal: Deferred by Provider
Genito-urinary: Nephrostomy Tubes
Musculoskeletal: No Clubbing, No Cyanosis and No Edema
Skin: Negative Rash
Neuro: Other (apperas disheveled, able to answer where she is, restless in bed, moving all 4 extremities ); Negative Tremors
Psych: Calm
Data Reviewed
-
Diagnostic Radiology: Report Reviewed by me
Labs: Labs Reviewed by me
[2023-09-23] MEDS: ATIVAN 0.5 MG IV (10:00)
[2023-09-23] MEDS: NSS (PRESERVATIVE FREE) 0.25 ML IV (10:53)
[2023-09-23] MEDS: PROTONIX IV 40 MG IV ×2 (10:53→20:52)
[2023-09-23] MEDS: NSS (PRESERVATIVE FREE) 10 ML IV ×2 (10:54→20:52)
--- NOTE | 2023-09-23 11:08 | CM ---
Addendum entered by Kell Benoit 09/23/23 14:59:
furniture manager received a prescription for hospice, hospice options reviewed and [facility] to meet and evaluate patient.
Original Note:
furniture manager reviewed patient's chart and reached out to [facility] however per [facility] they never admitted patient. Plan was for chemo however chemo is not an option now per oncology, pillowcase cleaner left a message
for patient's emergency contacts Daron is see if patient has any distant relatives who can assist with plan for patient.
Plan; To follow with patient progress.
[2023-09-23 11:17] VITALS: BP 109/76
[2023-09-23 12:11] LABS: Hemoglobin 8.1 g/dL (12.0-16.0); Mean Corp Hgb Conc. 33.8 g/dL (33.0-37.0); Mean Corpuscular Hgb 30.1 pg (27.0-31.0); Mean Corpuscular Volume 89.2 fL (81.0-99.0); Mean Platelet Volume 11.5 fL (7.4-10.4); Platelet Count 128 10^3/uL (130-400); Red Blood Cell Count 2.69 10^6/uL (4.20-5.40); Red Cell Dist. Width 20.5 % (11.5-14.5)
[2023-09-23 12:29] LABS: Blood Urea Nitrogen 22 mg/dl (7-17); Calcium 8.7 mg/dl (8.4-10.2); Carbon Dioxide 24 mmol/L (22-30); Chloride 99 mmol/L (98-107); Estimated Creatinine Clearance 81 ml/min; Glucose 99 mg/dl (70-99); Magnesium 1.6 mg/dl (1.6-2.3); Potassium 3.7 mmol/L (3.5-5.1); Sodium 134 mmol/L (135-145); eGFR > 60.00
--- NOTE | 2023-09-23 14:57 | W.PN.UPDATE ---
Addendum entered and electronically signed by Jessica Ocasio MD 09/23/23 15:00:
low threshold to transition to morphine gtt if difficulty with pain control
increased frequency PRN IV dilaudid for now
Original Note:
Update Note
Progress Note Update
I spoke to Shelbi Blackwood who confirms she and are primary people in patient's life. She has spoken to Dr. Stewart and Renato Valdez earlier and now feels comfortable speaking on behalf of patient accepting hospice services.
hospice consult is placed
patient likely qualifies for inpatient hospice for pain control
--- NOTE | 2023-09-23 15:10 | HOSPNOTE ---
Spoke with Saida and she is in agreement with hospice care and patient will need to remain inpatient hospice for pain management. Attending and case management aware of plan.
[2023-09-23 15:44] VITALS: BP 135/93
[2023-09-23] MEDS: ATIVAN 1 MG IV ×3 (16:43→22:57)
[2023-09-23 18:37] VITALS: BP 130/87
--- NOTE | 2023-09-23 18:42 | W.PN.UPDATE ---
Update Note
Progress Note Update
Report from RN patient is increasingly restless and uncomfortable. At this point will start IV morphine gtt. Shelbi updated and agrees with this plan.
[2023-09-23] MEDS: NSS (PRESERVATIVE FREE) 0.5 ML IV ×2 (19:35→22:57)
[2023-09-23] MEDS: MORPHINE 100 IV (19:35)
--- NOTE | 2023-09-23 19:41 | PTCARENOTE ---
pt started on step 2 gtt. pt given prn ativan for restlessness and is currently in b/l soft limb restraints to prevent pt from pulling out IV. pt has b/l nephrostomy tubes will be transitioned to hospice tomorrow. pt brought down to 2N from 4W at
1820 in hospital bed. pt has friend at bedside but no other contacts. pt gtt is currently running through her L forearm IV site at this time.
[2023-09-23 19:43] VITALS: BP 125/85
[2023-09-23] MEDS: ZOLOFT PO (20:48)
[2023-09-23] MEDS: MORPHINE SULFATE 2 MG IV ×3 (20:52→23:23)
--- NOTE | 2023-09-23 20:57 | W.PN.UPDATE ---
Update Note
Progress Note Update
RN voiced concern regarding placing patient on comfort measures, Progress notes noted by Dr. Ocasio, Dr. Stewart and city superintendent. Friend Saida called and discussed regarding comfort measures and agrees to place patient on comfort measures. Order placed.
RN aware
[2023-09-24] MEDS: MORPHINE SULFATE 2 MG IV ×2 (00:06→00:44)
--- NOTE | 2023-09-24 01:07 | PTCARENOTE ---
Per discussion w/ patient's primary contact, Shelbi - Shelbi wishes for the patient to be comfortable. Reinforced w/ Shelbi the philosophy of comfort care/hospice. Explained plan of care to Shelbi. JOB PRESS FEEDER notified of discussion. JOB PRESS FEEDER called Shelbi to
discuss plan of care. Comfort orders placed.
[2023-09-24] MEDS: MORPHINE SULFATE 4 MG IV ×2 (01:56→08:28)
[2023-09-24] MEDS: ATIVAN 1 MG IV (01:56)
[2023-09-24] MEDS: NSS (PRESERVATIVE FREE) 0.5 ML IV (01:57)
[2023-09-24] MEDS: CYMBALTA DELAYED RELEASE PO (07:31)
[2023-09-24 07:49] VITALS: BP 115/76
--- NOTE | 2023-09-24 08:34 | W.PN.HOSP.TC ---
Today's Communication/Plan
-
comfort care
Assessment / Plan
Assessment / Plan
Metastatic Breast Cancer with new Presacral Soft Tissue Mass, with the lung lesion concerning for metastases, pericolonic probable metastatic deposit. Small nodule adjacent right kidney probably related to metastasis. Widespread osseous metastases
seen
-with difficult pain control and declining clinical status, not chemo candidate decision made for hospice and comfort care on 09/23/23
-requiring initiated morphine gtt yesterday evening
Acute on Chronic Anemia likely secondary to upper GI bleed in setting of thrombocytopenia
-Status post 3 units total of PRBC
-Status post endoscopy 09/14 with findings of mucosal changes with gastritis with hemorrhage s/p APC with biopsies showing metastatic disease; Gastric biopsy lesion positive for Invasive carcinoma consistent with breast origin involving gastric
mucosa.
-IV PPI for comfort
Mechanical fall leading to left side subtle subdural hematoma and suspected right-sided subdural hematoma versus subdural thickening
-appreciate neurology consult
-s/p repeat head CT - stable
Bicytopenia (anemia thrombocytopenia) likely secondary to chemotherapy
-stop lab work on comfort
Acute Kidney Injury likely post renal with concern for ureter obstruction 2/2 cancer
Severe metabolic acidosis
Chronic hyponatremia
-CT abd/pelvis w/o contrast results above
-Status post bilateral percutaneous nephrostomy tube. Creatinine stabilized and normalized within normal limits.
-mild hematuria - resolved
-stop lab work on comfort
Constipation
Metastatic Breast Cancer with new Presacral Soft Tissue Mass, with the lung lesion concerning for metastases, pericolonic probable metastatic deposit. Small nodule adjacent right kidney probably related to metastasis. Widespread osseous metastases
seen
-Follows with Dr. Jacobson
-started on MS Contin 3 times daily this admission given severe pain from cancer
-appreciate Dr. Stewart's eval this AM - risk management involved as patient becoming increasingly confused, unable to make medical decisions and unlikely to be a chemo candidate. no family members to speak for patient as POA.
Anxiety/Depression
-PRN ativan
DVT proph: no need on comfort care
Code Status: DNR - discussed with JUANCHO Mario on 09/22
Anticipated Discharge: 24 - 48 hours
Subjective/Interval History
-
Date of Service: September 24, 2023
sedated, sleeping
Objective Data
-
Vital Signs:
Vital Signs
Temp Pulse Resp BP Pulse Ox
98.7 F 120 14 115/76 94
09/24/23 07:49 09/24/23 07:49 09/24/23 07:49 09/24/23 07:49 09/24/23 07:49
I&O
09/23/23 09/24/23 09/25/23
06:59 06:59 06:59
Intake Total 805 / 805 300 / 300
Output Total 250 / 250 400 / 400
Balance 555 / 555 -100 / -100
Review of Systems
-
Unable to obtain full review of systems at this time due to: Patient Non-verbal
History Source: Patient
Physical Exam
-
General: Other (sedated, comfortable, )
Neuro: Sedated
Psych: Calm
[2023-09-24] MEDS: FLUSH (NSS) 2 FLUSH IV (08:49)
[2023-09-24] MEDS: NSS (PRESERVATIVE FREE) 10 ML IV (08:50)
[2023-09-24] MEDS: PROTONIX IV 40 MG IV (08:51)
--- NOTE | 2023-09-24 09:08 | HOSPNOTE ---
Patient will be signing onto hospice services. Admissions was called and attending is aware of plan. Will update case management.
--- NOTE | 2023-09-24 09:48 | W.PN.ONC ---
Today's Communication / Plan
-
Comfort measures on morphine gtt
Hospice consult
Emotional support for friends/POA
Updated Dr. Jacobson
Impression
Impression
Metastatic breast cancer with extensive osseous and progressive hepatic metastatic disease
GI bleeding
Iron deficiency
Presacral lesion
Bilateral hydronephrosis w/ QUINTON s/p b/l PCN
Acute anemia - gastritis/bleeding noted on EGD
Recent episode of hematemesis
Chronic thrombocytopenia, suspected ITP
Subdural hematoma s/p fall (09/19/23)
Gross hematuria
Tachycardia
Acute on chronic pain
Weakness
Nausea
Subjective/Objective
Subjective/Objective
patient is sedated and resting comfortably. patient did not arouse to voice or touch.
Vital Signs:
Vital Signs
Temp Pulse Resp BP Pulse Ox
98.7 F 120 14 115/76 94
09/24/23 07:49 09/24/23 07:49 09/24/23 07:49 09/24/23 07:49 09/24/23 07:49
Lab Results:
Laboratory Data
WBC 11.0 10^3/uL (4.8-10.8) H 09/23/23 11:46
Hgb 8.1 g/dL (12.0-16.0) L 09/23/23 11:46
Plt Count 128 10^3/uL (130-400) L 09/23/23 11:46
PT 14.4 Sec (11.4-14.6) 09/18/23 07:02
INR 1.12 09/18/23 07:02
eGFR > 60.00 09/23/23 11:46
--- NOTE | 2023-09-24 10:41 | PTOTSP ---
Chart reviewed and spoke with RN. Patient has transitioned to comfort measures and skilled therapy is not longer warranted. Will discharge at this time.
If needs change, please re-consult.
--- NOTE | 2023-09-24 10:46 | W.DS.TRANS ---
DC Summary - Domestic Cleaner
-
Discharge Instructions:
Discharge Diagnosis/Procedures metastatic breast cancer
Diet Regular
Activity As tolerated
Driving Restrictions No driving
Other Services Hospice
Instructions:
Stand-Alone Forms:
Changes to Home Medications: Yes
Discharge Medications:
DC Medications w/original date entered in [employer]
morphine 1 mg/mL in 0.9 % sodium chloride intravenous 100 mg (100 mL) IV PER PROTOCOL #0 mL 09/24/23
morphine 2 mg/mL injection syringe 0 mg (0 mL) IV [id number] PRN moderate-severe pain / dyspnea #0 mL 09/24/23
pantoprazole 40 mg intravenous solution 40 mg IV BID #0 ea 09/24/23
sodium chloride 0.9 % 0.5 ml IV Q2HPRN PRN IV LORAZEPAM DILUTION #0 mL 09/24/23
sodium chloride 0.9 % 10 ml IV BID #0 mL 09/24/23
Home Medication Changes
D/C'd to inpatient hospice on morphine gtt
Pending Results: No
--- NOTE | 2023-09-24 10:48 | PTCARENOTE ---
Pt. being admitted onto inpatient hospice. Will flip the chart.
--- NOTE | 2023-09-24 13:04 | W.DCSUMMARY ---
Discharge Summary
Discharge Data
Date of Admission: 09/14/23
Date of Discharge: 09/24/23
-
Pending Results: No
Hospital Course
Discharging Physician : Dr. Jessica Ocasio
Disposition : Inpatient Hospice
Primary care physician : Dr. Kj Landa
Principal Discharge diagnosis : Metastatic Breast Cancer with presacral soft tissue mass, widespread osseous metastases
Hospital Course :
Ms. Maria Luisa Carmona is a 63 yo woman with hx metastatic breast CA with new finding presacral soft tissue mass, widespread osseous metastases, recent admission 08/25-08/28 for severe anemia with negative GI work-up represents to the ER on 09/13 with low Hg
admitted for further work-up.
Hospital course by problem:
1) Acute on chronic anemia. Status post endoscopy 09/14 with findings of mucosal changes with gastritis with hemorrhage s/p APC with biopsies showing metastatic disease; Gastric biopsy lesion positive for Invasive carcinoma consistent with breast
origin involving gastric mucosa. Patient and Oncology made aware of these results, she was continued on PPI. She received a total of 3 units PRBC during hospitalization.
2) Mechanical fall leading to left side subtle subdural hematoma and suspected right-sided subdural hematoma versus subdural thickening. She was evaluated by neurology. Follow up head CT stable. PLT remained over 100,000.
3)Acute Kidney Injury and metabolic acidosis. Creatinine on admission 1.9 and this increased to 4.5. Abdomen/Pelvis CT repeated with finding bilateral hydro (see below). She underwent bilateral percutaneous nephrostomy tube with normalization of
renal function following procedure.
4) Pain control from metastatic cancer. Patient required initiation of MS Contin during this day.
Patient became progressively deconditioned and confused during hospitalization intermittently refusing medical care. No changes to head CT. She was deemed unlikely to be chemotherapy candidate. With clinical worsening and worsening pain decision
made to transition to comfort care/hospice. Decision made with patient's friend, Shelbi, listed in chart who is patient's POA.
Morphine gtt initiated for increased pain on 09/22. She is discharged to inpatient hospice.
Time spent on discharge was 35 minutes.
Important imaging findings :
ABDOMEN/PELVIS CT 09/17/23
IMPRESSION:
1. Mild bilateral hydronephrosis. No renal or ureteral calculi identified. There is wall thickening of the urinary bladder which may be related to prior radiation therapy. Bladder is relatively underdistended and evaluation is limited on
noncontrast examination.
2. Progression of metastatic disease as above. Multiple low-attenuation foci within the liver suspicious for metastases. Retroperitoneal lymphadenopathy consistent with metastasis. Small pericolonic probable metastatic deposits. Small nodules
adjacent to the right kidney probably related to metastasis.
3. Left pelvic sidewall abnormal soft tissue attenuation related to either metastasis or post radiation change as seen prior. Presacral soft tissue attenuation thickening probably related to radiation change.
4. Minimal right pleural effusion. Small left pleural effusion with adjacent atelectasis/consolidation.
5. Liquid stool throughout the colon. No obstruction. Unchanged incidental duodenal lipoma.
6. Widespread osseous metastases as seen prior.
7. Anasarca.
Procedure findings :
Discharge Plan
-
Patient Disposition: Hospice - Inpatient
Discharge Diagnosis/Procedures: metastatic breast cancer
Diet: Regular
Activity: As tolerated
Driving Restrictions: No driving
Other Services: Hospice
Referrals:
NONE,* [Family Provider] -
Prescriptions:
New
morphine in 0.9 % sodium chlor 1 mg/mL Solution
100 mg IV PER PROTOCOL Qty: 0 0RF
pantoprazole 40 mg Recon Soln
40 mg IV BID Qty: 0 0RF
sodium chloride 0.9 % Solution
10 ml IV BID Qty: 0 0RF
sodium chloride 0.9 % Solution
0.5 ml IV Q2HPRN PRN (Reason: IV LORAZEPAM DILUTION) Qty: 0 0RF
morphine 2 mg/mL Syringe
0 mg IV [id number] PRN (Reason: moderate-severe pain / dyspnea) Qty: 0 0RF
Discontinued
polyethylene glycol 3350 [Miralax] 17 gram Powder In Packet
17 g PO DAILY
fluconazole 200 mg Tablet
200 mg PO DAILY
Patient Comments:
09/08/2023, pt. filled this med. on 09/04/2023 and is instructed to take one tablet daily for 14 days.
sertraline 100 mg Tablet
100 mg PO HS
cyanocobalamin (vitamin B-12) 1,000 mcg Tablet
1,000 mcg PO DAILY
alprazolam 0.5 mg Tablet
0.5 mg PO HSPRN PRN (Reason: sleep/anxiety)
pantoprazole 40 mg Tablet,Delayed Release (Dr/Ec)
40 mg PO DAILY
ferrous sulfate [iron] 325 mg (65 mg iron) Tablet
325 mg PO DAILY
gabapentin 300 mg Capsule
300 mg PO TID PRN (Reason: nerve pain)
duloxetine 30 mg Capsule,Delayed Release(Dr/Ec)
30 mg PO DAILY
acetaminophen [Tylenol] 325 mg Tablet
650 mg PO Q4HPRN PRN (Reason: mild pain)
Discharge Orders:
Discharge Patient (As Directed); Ordered 09/24/23
Ordered By: Jessica Ocasio
Discharge Date and Time
Discharge Date/Time: 09/24/23 11:00
Print Language: AUSTRIAN
== END 2023-09-24 11:00 | disposition hospice, inpatient (51) | DRG 374 ==
LOC: 2 NORTH 14:47
PROVIDERS: Internal Medicine; Physician Assistant; Physician Assistant Medical; Radiology Vascular & Interventional Radiology; ADMITTING PHYSICIAN Hospitalist; ATTENDING PHYSICIAN Student in an Organized Health Care Education/Training Program; CONSULT PHYSICIAN Internal Medicine Gastroenterology; CONSULT PHYSICIAN Internal Medicine Hematology & Oncology; CONSULT PHYSICIAN Specialist; CONSULT PHYSICIAN Student in an Organized Health Care Education/Training Program; EMERGENCY PHYSICIAN Emergency Medicine; OTHER PHYSICIAN Specialist
PROC: 30233N1 Transfusion of Nonautologous Red Blood Cells into Peripheral Vein, Percutaneous Approach (ICD-10-PCS; 2023-09-14)
PROC: 0D578ZZ Destruction of Stomach, Pylorus, Via Natural or Artificial Opening Endoscopic (ICD-10-PCS; 2023-09-15)
PROC: 0DB78ZX Excision of Stomach, Pylorus, Via Natural or Artificial Opening Endoscopic, Diagnostic (ICD-10-PCS; 2023-09-15)
PROC: 3E0G8GC Introduction of Other Therapeutic Substance into Upper GI, Via Natural or Artificial Opening Endoscopic (ICD-10-PCS; 2023-09-15)
PROC: 0T9330Z Drainage of Right Kidney Pelvis with Drainage Device, Percutaneous Approach (ICD-10-PCS; 2023-09-18)
PROC: 30233R1 Transfusion of Nonautologous Platelets into Peripheral Vein, Percutaneous Approach (ICD-10-PCS; 2023-09-19)
DX: C78.89 Secondary malignant neoplasm of other digestive organs (principal); K29.71 Gastritis, unspecified, with bleeding; S06.5X0A Traumatic subdural hemorrhage without loss of consciousness, initial encounter; B37.81 Candidal esophagitis; E87.20 Acidosis, unspecified; C79.51 Secondary malignant neoplasm of bone; N17.9 Acute kidney failure, unspecified; N13.30 Unspecified hydronephrosis; E87.1 Hypo-osmolality and hyponatremia; G83.4 Cauda equina syndrome; J98.11 Atelectasis; E87.0 Hyperosmolality and hypernatremia; E44.0 Moderate protein-calorie malnutrition; K92.0 Hematemesis; Z51.5 Encounter for palliative care; R79.89 Other specified abnormal findings of blood chemistry; F32.A Depression, unspecified; K64.8 Other hemorrhoids; K59.09 Other constipation; D50.0 Iron deficiency anemia secondary to blood loss (chronic); K22.89 Other specified disease of esophagus; D69.6 Thrombocytopenia, unspecified; R74.01 Elevation of levels of liver transaminase levels; G89.3 Neoplasm related pain (acute) (chronic); R59.0 Localized enlarged lymph nodes; D17.5 Benign lipomatous neoplasm of intra-abdominal organs; E78.00 Pure hypercholesterolemia, unspecified; N13.5 Crossing vessel and stricture of ureter without hydronephrosis; K57.30 Diverticulosis of large intestine without perforation or abscess without bleeding; F41.9 Anxiety disorder, unspecified; W18.30XA Fall on same level, unspecified, initial encounter; M79.606 Pain in leg, unspecified; E83.51 Hypocalcemia; Z85.3 Personal history of malignant neoplasm of breast; Z87.891 Personal history of nicotine dependence; Z92.3 Personal history of irradiation; Z90.13 Acquired absence of bilateral breasts and nipples; Z88.5 Allergy status to narcotic agent; Z88.8 Allergy status to other drugs, medicaments and biological substances; Z91.041 Radiographic dye allergy status; Z17.0 Estrogen receptor positive status [ER+]; Z60.2 Problems related to living alone; Z68.22 Body mass index [BMI] 22.0-22.9, adult
CPT/HCPCS: 88305; 36430; 50432; 70450; 74176; 76770; 80048; 80053; 81003; 81015; 82306; 82330; 82570; 82962; 83615; 83735; 83935; 84300; 85014; 85018; 85025; 85027; 85045; 85610; 86850; 86900; 86901; 86920; 87086; 88341; 88342; 88360; 93005; 93970; 96374; 96375; 97163; 97166; 97530; 99152; 99153; 99291; C1729; C1769; P9016; P9073

== ENCOUNTER 2023-09-24 11:04 | Inpatient (IN) | payer OTHER, SELFPAY ==
[2023-09-24 07:00] VITALS: BP 115/76
--- NOTE | 2023-09-24 11:14 | CM ---
Reviewed the chart notes. Patient is no [facility]. CM continues to be available to patient/family.
Plan: Comfort Care.
--- NOTE | 2023-09-24 11:49 | CHAP ---
Emotional and spiritual support provided for Ms Bridge and friends at bedside. Stories shared, Fern Fiore read, prayer blanket given.
[2023-09-24] MEDS: MORPHINE SULFATE 4 MG IV ×2 (11:54→15:19)
[2023-09-24] MEDS: ATIVAN 1 MG IV (11:54)
--- NOTE | 2023-09-24 12:05 | PTCARENOTE ---
Patient admitted onto inpatient hospice. Chart flipped.
--- NOTE | 2023-09-24 12:07 | HOSPNOTE ---
Patient is admitted to hospice services. Hospice philosophy explained to caregivers Shelbi and Jonathan Blackwood. Questions answered, emotional support provided. Jonathan signed the consent. Patient is imminent. Unresponsive,Mottled knees, no oral
intake. On morphine drip 4 mg/hr. RR 10, loud and labored, BP 95/70, P 128, T 98.4. According to Flacc in moderate distress. Report with facility [facility], patient will be given PRN doses of morphine and ativan. No arrangements yet, most
likely a cremation. Hospice SW Notified. Hospital astrophysics professor notified. Report with Dr. Ocasio. Patient is appropriate to a [facility] level of care in order to manage her pain and anxiety.
--- NOTE | 2023-09-24 13:04 | W.DCSUMMARY ---
Discharge Summary
Discharge Data
Date of Admission: 09/24/23
Date of Discharge: 09/24/23
-
Pending Results: No
Hospital Course
Discharging Physician : Dr. Jessica Ocasio
Disposition : Inpatient Hospice
Primary care physician : Dr. Kj Landa
Principal Discharge diagnosis : Metastatic Breast Cancer with presacral soft tissue mass, widespread osseous metastases
Hospital Course :
Ms. Maria Luisa Carmona is a 63 yo woman with hx metastatic breast CA with new finding presacral soft tissue mass, widespread osseous metastases, recent admission 08/25-08/28 for severe anemia with negative GI work-up represents to the ER on 09/13 with low Hg
admitted for further work-up.
Hospital course by problem:
1) Acute on chronic anemia. Status post endoscopy 09/14 with findings of mucosal changes with gastritis with hemorrhage s/p APC with biopsies showing metastatic disease; Gastric biopsy lesion positive for Invasive carcinoma consistent with breast
origin involving gastric mucosa. Patient and Oncology made aware of these results, she was continued on PPI. She received a total of 3 units PRBC during hospitalization.
2) Mechanical fall leading to left side subtle subdural hematoma and suspected right-sided subdural hematoma versus subdural thickening. She was evaluated by neurology. Follow up head CT stable. PLT remained over 100,000.
3)Acute Kidney Injury and metabolic acidosis. Creatinine on admission 1.9 and this increased to 4.5. Abdomen/Pelvis CT repeated with finding bilateral hydro (see below). She underwent bilateral percutaneous nephrostomy tube with normalization of
renal function following procedure.
4) Pain control from metastatic cancer. Patient required initiation of MS Contin during this day.
Patient became progressively deconditioned and confused during hospitalization intermittently refusing medical care. No changes to head CT. She was deemed unlikely to be chemotherapy candidate. With clinical worsening and worsening pain decision
made to transition to comfort care/hospice. Decision made with patient's friend, Shelbi, listed in chart who is patient's POA.
Morphine gtt initiated for increased pain on 09/22. She is discharged to inpatient hospice.
Time spent on discharge was 35 minutes.
Important imaging findings :
ABDOMEN/PELVIS CT 09/17/23
IMPRESSION:
1. Mild bilateral hydronephrosis. No renal or ureteral calculi identified. There is wall thickening of the urinary bladder which may be related to prior radiation therapy. Bladder is relatively underdistended and evaluation is limited on
noncontrast examination.
2. Progression of metastatic disease as above. Multiple low-attenuation foci within the liver suspicious for metastases. Retroperitoneal lymphadenopathy consistent with metastasis. Small pericolonic probable metastatic deposits. Small nodules
adjacent to the right kidney probably related to metastasis.
3. Left pelvic sidewall abnormal soft tissue attenuation related to either metastasis or post radiation change as seen prior. Presacral soft tissue attenuation thickening probably related to radiation change.
4. Minimal right pleural effusion. Small left pleural effusion with adjacent atelectasis/consolidation.
5. Liquid stool throughout the colon. No obstruction. Unchanged incidental duodenal lipoma.
6. Widespread osseous metastases as seen prior.
7. Anasarca.
Procedure findings :
Discharge Plan
-
Referrals:
UNKNOWN - PT DOES,NOT KNOW [Family Provider] -
Prescriptions:
No Action
morphine in 0.9 % sodium chlor 1 mg/mL Solution
100 mg IV PER PROTOCOL Qty: 0 0RF
pantoprazole 40 mg Recon Soln
40 mg IV BID Qty: 0 0RF
sodium chloride 0.9 % Solution
10 ml IV BID Qty: 0 0RF
sodium chloride 0.9 % Solution
0.5 ml IV Q2HPRN PRN (Reason: IV LORAZEPAM DILUTION) Qty: 0 0RF
morphine 2 mg/mL Syringe
0 mg IV [id number] PRN (Reason: moderate-severe pain / dyspnea) Qty: 0 0RF
Discharge Date and Time
Print Language: VIETNAMESE
--- NOTE | 2023-09-24 13:15 | HPS.HSE ---
Family Physician
-
Family Physician: NOT KNOW UNKNOWN - PT DOES
Chief Complaint
-
pain control for metastatic cancer, hospice
History of Present Illness
Ms. Maria Luisa Carmona is a 63 yo woman with hx metastatic breast CA with new finding presacral soft tissue mass, widespread osseous metastases, recent admission 08/25-08/28 for severe anemia with negative GI work-up represents to the ER on 09/13 with low Hg
admitted for further work-up.
Hospital course by problem:
1) Acute on chronic anemia. Status post endoscopy 09/14 with findings of mucosal changes with gastritis with hemorrhage s/p APC with biopsies showing metastatic disease; Gastric biopsy lesion positive for Invasive carcinoma consistent with breast
origin involving gastric mucosa. Patient and Oncology made aware of these results, she was continued on PPI. She received a total of 3 units PRBC during hospitalization.
2) Mechanical fall leading to left side subtle subdural hematoma and suspected right-sided subdural hematoma versus subdural thickening. She was evaluated by neurology. Follow up head CT stable. PLT remained over 100,000.
3)Acute Kidney Injury and metabolic acidosis. Creatinine on admission 1.9 and this increased to 4.5. Abdomen/Pelvis CT repeated with finding bilateral hydro (see below). She underwent bilateral percutaneous nephrostomy tube with normalization of
renal function following procedure.
4) Pain control from metastatic cancer. Patient required initiation of MS Contin during this day.
Patient became progressively deconditioned and confused during hospitalization intermittently refusing medical care. No changes to head CT. She was deemed unlikely to be chemotherapy candidate. With clinical worsening and worsening pain decision
made to transition to comfort care/hospice. Decision made with patient's friend, Shelbi, listed in chart who is patient's POA.
Morphine gtt initiated for increased pain on 09/22. She is discharged to inpatient hospice.
Time spent on discharge was 35 minutes.
Medical History
Past Medical History
Past Medical History: Reports Other
Additional Past Medical History:
Metastatic Breast Cancer
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
Anxiety / Depression
Past Surgical History: Reports Other
Additional Past Surgical History:
Bilateral Mastectomy
Social History
Tobacco: Former Smoker
Alcohol: None (Previously drinking 2 martinis nightly, but none for past few months)
Family History
Family History: Not pertinent
Allergies / Home Medications
Allergies reflects when Allergies were last updated in [employer].
Home Medications with original date entered in [employer]
Allergy/Medication List:
Allergies
Allergy/AdvReac Type Severity Reaction Status Date / Time
bupropion [From Wellbutrin] Allergy Patient Verified 09/14/23 10:42
states she
lost a lot
of weight
on.
codeine Allergy 'makes her Verified 09/14/23 10:42
ill'
Iodinated Contrast Media Allergy THROAT SHUT Verified 09/14/23 10:42
Home Medications
morphine 1 mg/mL in 0.9 % sodium chloride intravenous 100 mg (100 mL) IV PER PROTOCOL #0 mL 09/24/23
morphine 2 mg/mL injection syringe 0 mg (0 mL) IV [id number] PRN moderate-severe pain / dyspnea #0 mL 09/24/23
pantoprazole 40 mg intravenous solution 40 mg IV BID #0 ea 09/24/23
sodium chloride 0.9 % 0.5 ml IV Q2HPRN PRN IV LORAZEPAM DILUTION #0 mL 09/24/23
sodium chloride 0.9 % 10 ml IV BID #0 mL 09/24/23
Review of Systems
-
History Source: Patient
A 12 point ROS was completed and negative except as noted: Yes
Physical Exam
Vital Signs
Vital Signs
Temp Pulse Resp BP Pulse Ox
98.7 F 120 14 115/76 94
09/24/23 07:00 09/24/23 07:00 09/24/23 07:00 09/24/23 07:00 09/24/23 11:21
Physical Exam
General: Other (resting comfortably on morphine gtt)
HEENT: PERRLA
Respiratory: Non Labored Respirations
Cardiac: S1/S2 and Regular Rhythm
GI: Soft and Non Tender
Musculoskeletal: No Edema
Neuro: Awake and Alert
Psych: Calm
Data Reviewed
-
Diagnostic Radiology: Report Reviewed by me
Lab Data: Labs Reviewed by me
Impression/Plan
-
Metastatic Breast Cancer with new Presacral Soft Tissue Mass, with the lung lesion concerning for metastases, pericolonic probable metastatic deposit. Small nodule adjacent right kidney probably related to metastasis. Widespread osseous metastases
seen
-with difficult pain control and declining clinical status, not chemo candidate decision made for hospice and comfort care on 09/23/23
-requiring initiated morphine gtt yesterday evening
Acute on Chronic Anemia likely secondary to upper GI bleed in setting of thrombocytopenia
-Status post 3 units total of PRBC
-Status post endoscopy 09/14 with findings of mucosal changes with gastritis with hemorrhage s/p APC with biopsies showing metastatic disease; Gastric biopsy lesion positive for Invasive carcinoma consistent with breast origin involving gastric
mucosa.
-IV PPI for comfort
Mechanical fall leading to left side subtle subdural hematoma and suspected right-sided subdural hematoma versus subdural thickening
-appreciate neurology consult
-s/p repeat head CT - stable
Bicytopenia (anemia thrombocytopenia) likely secondary to chemotherapy
-stop lab work on comfort
Acute Kidney Injury likely post renal with concern for ureter obstruction 2/2 cancer
Severe metabolic acidosis
Chronic hyponatremia
-CT abd/pelvis w/o contrast results above
-Status post bilateral percutaneous nephrostomy tube. Creatinine stabilized and normalized within normal limits.
-mild hematuria - resolved
-stop lab work on comfort
Anxiety/Depression
-PRN ativan
DVT proph: no need on comfort care
Code Status: DNR - discussed with JUANCHO Mario on 09/22
Anticipated Discharge: 24 - 48 hours
[2023-09-24 19:20] VITALS: BP 94/55
[2023-09-24] MEDS: MORPHINE 100 IV (20:06)
[2023-09-24] MEDS: ROBINUL 0.200000000000000011 MG IV (23:42)
[2023-09-25] MEDS: TYLENOL/FEVERALL 650 MG RECTAL ×3 (05:26→21:59)
[2023-09-25 07:37] VITALS: BP 73/45
--- NOTE | 2023-09-25 08:39 | W.PN.HOSP.TC ---
Today's Communication/Plan
-
comfort care
Assessment / Plan
Assessment / Plan
Metastatic Breast Cancer with new Presacral Soft Tissue Mass, with the lung lesion concerning for metastases, pericolonic probable metastatic deposit. Widespread osseous metastases seen
-with difficult pain control and declining clinical status, not chemo candidate decision made for hospice and comfort care on 09/23/23
-requiring initiated morphine gtt
Acute on Chronic Anemia likely secondary to upper GI bleed in setting of thrombocytopenia
-Status post 3 units total of PRBC
-Status post endoscopy 09/14 with findings of mucosal changes with gastritis with hemorrhage s/p APC with biopsies showing metastatic disease; Gastric biopsy lesion positive for Invasive carcinoma consistent with breast origin involving gastric
mucosa.
-IV PPI for comfort
Mechanical fall leading to left side subtle subdural hematoma and suspected right-sided subdural hematoma versus subdural thickening
-appreciate neurology consult
-s/p repeat head CT - stable
- no further imaging
Bicytopenia (anemia thrombocytopenia) likely secondary to chemotherapy
-stop lab work on comfort
Acute Kidney Injury likely post renal with concern for ureter obstruction 2/2 cancer
Severe metabolic acidosis
Chronic hyponatremia
-CT abd/pelvis w/o contrast results above
-Status post bilateral percutaneous nephrostomy tube. Creatinine stabilized and normalized within normal limits.
-mild hematuria - resolved
-stop lab work on comfort
Anxiety/Depression
-PRN ativan
Code Status: DNR - discussed with JUANCHO Mario on 09/22
Anticipated Discharge: 24 - 48 hours
Subjective/Interval History
-
Date of Service: September 25, 2023
sleeping
Objective Data
-
Vital Signs:
Vital Signs
Temp Pulse Resp BP Pulse Ox
102.1 F H 139 24 94/55 55
09/25/23 05:31 09/24/23 19:20 09/24/23 19:20 09/24/23 19:20 09/25/23 00:44
I&O
09/24/23 09/25/23 09/26/23
06:59 06:59 06:59
Intake Total 0 / 0
Output Total 100 / 100
Balance -100 / -100
Review of Systems
-
Unable to obtain full review of systems at this time due to: Patient Non-verbal
History Source: Patient
Physical Exam
-
General: Other (sedated, comfortable, )
Neuro: Sedated
Psych: Calm
Data Reviewed
-
Diagnostic Radiology: Report Reviewed by me
--- NOTE | 2023-09-25 09:30 | HOSPNOTE ---
Crosstie Inspector visited patient at [facility]. Patient was found sleeping in bed. Patient did not awake at chaplains prompting. Crosstie Inspector will visit daily
--- NOTE | 2023-09-25 10:48 | CM ---
Reviewed the chart notes. Patient continues on Morphine gtt for comfort care.
Plan: Comfort Care.
--- NOTE | 2023-09-25 11:17 | HOSPNOTE ---
Patient is unresponsive, having long periods of apnea. Friend is bedside and emotional support provided. Patient will be seen daily by hospice nurse. Patient continues on a morphine drip and encouraged medicating prior to any care or positioning.
[2023-09-25] MEDS: MORPHINE SULFATE 4 MG IV ×2 (15:03→21:58)
[2023-09-25] MEDS: MORPHINE 100 IV (16:32)
[2023-09-25 21:02] VITALS: BP 77/48
[2023-09-26] MEDS: MORPHINE SULFATE 4 MG IV ×4 (05:36→19:51)
[2023-09-26] MEDS: ROBINUL 0.200000000000000011 MG IV ×2 (05:36→15:54)
[2023-09-26] MEDS: TYLENOL/FEVERALL 650 MG RECTAL (05:46)
[2023-09-26 07:25] VITALS: BP 91/54
--- NOTE | 2023-09-26 08:17 | W.PN.HOSP.TC ---
Today's Communication/Plan
-
comfort care
Assessment / Plan
Assessment / Plan
Metastatic Breast Cancer with new Presacral Soft Tissue Mass, with the lung lesion concerning for metastases, pericolonic probable metastatic deposit. Widespread osseous metastases seen
-with difficult pain control and declining clinical status, not chemo candidate decision made for hospice and comfort care on 09/23/23
-requiring initiated morphine gtt
Acute on Chronic Anemia likely secondary to upper GI bleed in setting of thrombocytopenia
-Status post 3 units total of PRBC
-Status post endoscopy 09/14 with findings of mucosal changes with gastritis with hemorrhage s/p APC with biopsies showing metastatic disease; Gastric biopsy lesion positive for Invasive carcinoma consistent with breast origin involving gastric
mucosa.
-IV PPI for comfort
Fevers
-will check covid only so that visitors know to wear mask in room and protect nursing staff
-tylenol rectal PRN
Mechanical fall leading to left side subtle subdural hematoma and suspected right-sided subdural hematoma versus subdural thickening
-appreciate neurology consult
-s/p repeat head CT - stable
- no further imaging
Bicytopenia (anemia thrombocytopenia) likely secondary to chemotherapy
-stop lab work on comfort
Acute Kidney Injury likely post renal with concern for ureter obstruction 2/2 cancer
Severe metabolic acidosis
Chronic hyponatremia
-CT abd/pelvis w/o contrast results above
-Status post bilateral percutaneous nephrostomy tube. Creatinine stabilized and normalized within normal limits.
-mild hematuria - resolved
-stop lab work on comfort
Anxiety/Depression
-PRN ativan
Code Status: DNR - discussed with JUANCHO Mario on 09/22
Anticipated Discharge: 24 - 48 hours
Subjective/Interval History
-
Date of Service: September 26, 2023
fevers overnight
sedated
Objective Data
-
Vital Signs:
Vital Signs
Temp Pulse Resp BP Pulse Ox
101.3 F H 123 14 77/48 83
09/26/23 05:37 09/25/23 21:02 09/25/23 21:02 09/25/23 21:02 09/25/23 21:02
I&O
09/25/23 09/26/23 09/27/23
06:59 06:59 06:59
Intake Total 0 / 0
Output Total 100 / 100 150 / 150
Balance -100 / -100 -150 / -150
Review of Systems
-
Unable to obtain full review of systems at this time due to: Other (sedated)
History Source: Patient
Physical Exam
-
General: Other (sedated, comfortable, )
Neuro: Sedated
Psych: Calm
Data Reviewed
-
Diagnostic Radiology: Report Reviewed by me
Labs: Labs Reviewed by me
--- NOTE | 2023-09-26 15:36 | CHAP ---
Maria Luisa was sleeping comfortably. Extended visit with Maria Luisa's friends, Shelbi and Juan, who lovingly shared about her life, and about plans for her memorial service. Emotional and spiritual support provided; prayer offered for Maria Luisa, Shelbi and Juan.
[2023-09-26] MEDS: MORPHINE 100 IV (18:41)
[2023-09-26 20:00] VITALS: BP 88/55
[2023-09-27 07:25] VITALS: BP 85/56
--- NOTE | 2023-09-27 08:36 | HOSPNOTE ---
Patient remains GIP level of hospice care. Patient is GIP level of hospice care appropriate for the management of pain with a morphine drip and IVP PRN that could not be managed in an outpatient setting. Patient is unresponsive. Vitals-
99.5-116-124-7 with up to 30 seconds of apnea, 80/60, 77% RA. Nail beds are dusky in color and patient overall looks pale. Still has strong pedal pulses and is warm to the touch. No mottling noted. FLACC score of 0 noted. Continues on Morphine drip
at step 4 with 4 IVP PRN doses of Morphine in the past 24 hours. No anxiety noted, no PRN ativan given. No urine output in 24 hours. Bilateral Nephrostomy tubes are intact. Skin is intact. Informal report with JUANITO Hernandez. Family not present at bedside,
will call and offer emotional support. Patient will continue to be seen daily by Hospice nurse. Pt resting comfortably at the end of the visit.
--- NOTE | 2023-09-27 09:36 | W.PN.HOSP.TC ---
Today's Communication/Plan
-
comfort care
Assessment / Plan
Assessment / Plan
Metastatic Breast Cancer with new Presacral Soft Tissue Mass, with the lung lesion concerning for metastases, pericolonic probable metastatic deposit. Widespread osseous metastases seen
-with difficult pain control and declining clinical status, not chemo candidate decision made for hospice and comfort care on 09/23/23
-continue morphine gtt
-ativan PRN
Acute on Chronic Anemia likely secondary to upper GI bleed in setting of thrombocytopenia
-Status post 3 units total of PRBC
-Status post endoscopy 09/14 with findings of mucosal changes with gastritis with hemorrhage s/p APC with biopsies showing metastatic disease; Gastric biopsy lesion positive for Invasive carcinoma consistent with breast origin involving gastric
mucosa.
-IV PPI for comfort
Fevers
-will check covid only so that visitors know to wear mask in room and protect nursing staff
-tylenol rectal PRN
Mechanical fall leading to left side subtle subdural hematoma and suspected right-sided subdural hematoma versus subdural thickening
-appreciate neurology consult
-s/p repeat head CT - stable
- no further imaging
Bicytopenia (anemia thrombocytopenia) likely secondary to chemotherapy
-stop lab work on comfort
Acute Kidney Injury likely post renal with concern for ureter obstruction 2/2 cancer
Severe metabolic acidosis
Chronic hyponatremia
-CT abd/pelvis w/o contrast results above
-Status post bilateral percutaneous nephrostomy tube. Creatinine stabilized and normalized within normal limits.
-mild hematuria - resolved
-stop lab work on comfort
Anxiety/Depression
-PRN ativan
Code Status: DNR - discussed with JUANCHO Mario on 09/22
Anticipated Discharge: 24 - 48 hours
Subjective/Interval History
-
Date of Service: September 27, 2023
resting comfortably
Objective Data
-
Vital Signs:
Vital Signs
Temp Pulse Resp BP Pulse Ox
100.0 F 126 8 85/56 87
09/27/23 09:04 09/27/23 07:25 09/27/23 07:25 09/27/23 07:25 09/27/23 07:25
I&O
09/26/23 09/27/23 09/28/23
06:59 06:59 06:59
Output Total 150 / 150 275 / 275
Balance -150 / -150 -275 / -275
Review of Systems
-
Unable to obtain full review of systems at this time due to: Patient Non-verbal
History Source: Patient
Physical Exam
-
General: Other (sedated, comfortable, )
Neuro: Sedated
Psych: Calm
Data Reviewed
-
Diagnostic Radiology: Report Reviewed by me
Labs: Labs Reviewed by me
[2023-09-27] MEDS: MORPHINE SULFATE 4 MG IV ×6 (13:42→19:35)
[2023-09-27] MEDS: TYLENOL/FEVERALL 650 MG RECTAL (13:51)
[2023-09-27] MEDS: ROBINUL 0.200000000000000011 MG IV ×2 (13:51→18:04)
[2023-09-27] MEDS: MORPHINE 100 IV (16:20)
[2023-09-27] MEDS: ATIVAN 1 MG IV (18:36)
--- NOTE | 2023-09-27 19:40 | PTCARENOTE ---
Patient with periods of apnea throughout shift, occasionally moaning out with eyes open. Patient medicated for moaning and prior to turning and repositioning with PRN IV morphine 6 times throughout shift; PRN robinul given for secretions and rectal
tylenol for ax temp of 100.5F - see MAR. IV morphine gtt continuing to infuse at 4 mg/hr.
[2023-09-27 21:03] VITALS: BP 100/60
[2023-09-28] MEDS: ATIVAN 1 MG IV ×2 (06:16→17:49)
[2023-09-28 08:01] VITALS: BP 77/43
[2023-09-28] MEDS: TYLENOL/FEVERALL 650 MG RECTAL (08:40)
[2023-09-28] MEDS: MORPHINE SULFATE 6 MG IV ×4 (08:42→17:50)
[2023-09-28] MEDS: MORPHINE 100 IV (09:19)
--- NOTE | 2023-09-28 10:41 | W.PN.HSP.1 ---
Assessment / Plan
-
Metastatic Breast Cancer with new Presacral Soft Tissue Mass, with the lung lesion concerning for metastases, pericolonic probable metastatic deposit. Widespread osseous metastases seen
-with difficult pain control and declining clinical status, not chemo candidate decision made for hospice and comfort care on 09/23/23
-continue morphine gtt-currently on step 4
-ativan PRN
Acute on Chronic Anemia likely secondary to upper GI bleed in setting of thrombocytopenia
-Status post 3 units total of PRBC
-Status post endoscopy 09/14 with findings of mucosal changes with gastritis with hemorrhage s/p APC with biopsies showing metastatic disease; Gastric biopsy lesion positive for Invasive carcinoma consistent with breast origin involving gastric
mucosa.
-IV PPI for comfort
Fevers
-likely 2/2 malignancy
-tylenol rectal PRN
Mechanical fall leading to left side subtle subdural hematoma and suspected right-sided subdural hematoma versus subdural thickening
-appreciate neurology consult
-s/p repeat head CT - stable
- no further imaging
Bicytopenia (anemia thrombocytopenia) likely secondary to chemotherapy
-stop lab work on comfort
Acute Kidney Injury likely post renal with concern for ureter obstruction 2/2 cancer
Severe metabolic acidosis
Chronic hyponatremia
-CT abd/pelvis w/o contrast results above
-Status post bilateral percutaneous nephrostomy tube. Creatinine stabilized and normalized within normal limits.
-mild hematuria - resolved
-stop lab work on comfort
Anxiety/Depression
-PRN ativan
Code Status: DNR -
Today's Communication
morphine gtt
GIP measures
Interval History
-
remains on morphine gtt
comfortable
spiked fever earlier today
Physical Exam
-
Temp Pulse Resp BP Pulse Ox
103.0 F H 139 13 77/43 74
09/28/23 08:01 09/28/23 08:01 09/28/23 08:01 09/28/23 08:01 09/28/23 08:01
General: No Symptoms
Respiratory: Clear to Auscultation (frontal )
Cardiology: S1/S2
Breast: Deferred by me
GI: Nondistended
Rectal: Deferred by Provider
Genito-Urinary: No Symptoms
Neuro: Sedated
Psych: Calm
--- NOTE | 2023-09-28 13:47 | HOSPNOTE ---
Patient see by hospice and appears to be imminent. The patient continues on a morphine drip. Encouraged to medicate prior to any care or repositioning. Patient will be seen daily by hospice nurse.
[2023-09-28] MEDS: ROBINUL 0.200000000000000011 MG IV (17:49)
--- NOTE | 2023-09-28 19:53 | W.PN.DEATH ---
Pronouncement of
-
Called to see patient to pronounce.
No spontaneous heart tones or respirations noted.
Patient not responsive to verbal stimuli.
Patient is pronounced .
Time of : 19:43
Date of : 09/28/23
Cause of : Metastatic Breast Cancer
Acute on Chronic anemia
Family Notified: Yes (Friend present in room, no family)
--- NOTE | 2023-09-28 19:58 | W.PN.UPDATE ---
Update Note
Progress Note Update
Nursing notified this provider that patient has . At bedside pronounced patient with TOLuz 1943. Friend Saida and Juan present, grieving appropriately. Patient appears to have been comfortable at passing. Primary team notified. Hospice team
notified. note completed. certificate completed. Reviewed with nursing.
--- NOTE | 2023-09-29 08:38 | W.DCSUMMARY ---
Discharge Summary
Discharge Data
Date of Admission: 09/24/23
Date of Discharge: 09/28/23
-
Pending Results: No
Hospital Course
63 yo woman with hx metastatic breast CA with new finding presacral soft tissue mass, widespread osseous metastases, represents to the ER on 09/13 with low Hg status post endoscopy. Please see EGD report for complete results. Patient also had
mechanical fall with concern for right subdural hematoma versus subdural thickening and subsequent CT was stable. Patient with continuous progressive decline and deconditioning and was seemed not to be a chemotherapy candidate. Patient with
significant diffuse body pain due to cancer and required high doses of IV and oral narcotics. Patient was eventually transitioned to general inpatient hospice. On hospice patient required morphine infusion and patient on 09/28/20233.
Discharge Plan
-
Patient Disposition:
Date/Time
Date/Time: 09/28/23 19:00
Discharge Date and Time
Discharge Date/Time: 09/28/23 21:02
Print Language: WELSH
== END 2023-09-28 21:02 | disposition expired | DRG 951 ==
LOC: 2 NORTH 11:04
PROVIDERS: ADMITTING PHYSICIAN Student in an Organized Health Care Education/Training Program; ATTENDING PHYSICIAN Hospitalist
DX: Z51.5 Encounter for palliative care (principal); C79.51 Secondary malignant neoplasm of bone; N17.9 Acute kidney failure, unspecified; E87.1 Hypo-osmolality and hyponatremia; E87.20 Acidosis, unspecified; G89.3 Neoplasm related pain (acute) (chronic); C50.919 Malignant neoplasm of unspecified site of unspecified female breast; D64.9 Anemia, unspecified; D69.59 Other secondary thrombocytopenia; F32.A Depression, unspecified; F41.9 Anxiety disorder, unspecified; T45.1X5A Adverse effect of antineoplastic and immunosuppressive drugs, initial encounter; Z66 Do not resuscitate